=== PATIENT | male | born 2000 | race Caucasian/White ===

== ENCOUNTER 2023-02-12 22:07 | Emergency (ER) | payer MEDICAID, SELFPAY ==
[2023-02-12 16:54] VITALS: BP 216/128; PULSE 64; RESP 14
[2023-02-12 22:13] VITALS: BP 130/80; PULSE 66; RESP 16; TEMP 36.6; O2SAT 99
[2023-02-12 22:45] VITALS: BP 132/61; PULSE 65; PULSE 66; RESP 10; RESP 14
--- NOTE | 2023-02-12 22:47 | PC.NURSE ---
pt brought in by ems.pt is currently male and transitioning to female and goes by estevan. pt states that the last 2-3 days he has felt weak and dizzy. pt has boyfriend in room at this time and states patient had syncopal epsiodes today and loc. pt states right now he feels weak and feel like his legs are being weighed down. also pt states that his bp was high today in the 180s because his boyfriend checked it for him.
--- NOTE | 2023-02-12 22:49 | XR_ITS ---
[address] [address] Patient Name: JORGE LUIS JERNIGAN MRN: [id number] date: 2000 Sex: M Assigned Patient Location: ER Current Patient Location: ER Accession/Order Number: [id number] Exam Date: 02/12/2023 23:04 Report Date: 02/12/2023 23:22 At the request of: REYES ELMORE Procedure: XR chest 1V EXAMINATION: XR chest 1V HISTORY: Syncope COMPARISON: Chest x-rays 11/06/2022 TECHNIQUE: Portable chest FINDINGS: The lung parenchyma is free of consolidation or infiltrate. No pneumothorax or pleural effusion. The cardiac, mediastinal and hilar contours are normal. The visualized osseous structures exhibit no gross abnormality. IMPRESSION: No acute cardiopulmonary abnormality. Electronically authenticated by: NAWAF GREENBERG Date: 02/12/2023 23:22
--- NOTE | 2023-02-12 22:51 | ECG_ITS ---
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
--- NOTE | 2023-02-12 22:54 | ED.SYNCOPE1 ---
HPI - Syncope General Chief Complaint: Syncope Stated Complaint: WEAKNESS Time Seen by Provider: 02/12/23 22:44 Source: other Source comment: ems Mode of arrival: ambulance Limitations: physical limitation Limitations comment: patient states hes weak History of Present Illness HPI narrative: poor historian. Reportedly tonight in his home he felt sluggish and then passed out falling face first onto a carpeted floor. Partner states he was unresponsive for at least 2 minutes. His partner finally ask him if he was ok while he was lying on the floor and he raised his thumb in response. No injury despite falling face first. Denies headache or nausea. No chest pain. States BP was elevated at home. Takes beta socorro for his BP and tachycardia. BP and heart rate normal here. He states he feels better now. No history of dyspnea or palpitations`On further questioning patient states he was not completely unresponsive. complains of dizziness. Describes at home needing to hold on to the wall when walking Related Data Home Medications Medication Instructions Recorded Confirmed aripiprazole 5 mg tablet 5 mg PO DAILY 02/12/23 02/12/23 atenolol 50 mg tablet 50 mg PO Q12H 02/12/23 02/12/23 atomoxetine 100 mg capsule 100 mg PO DAILY 02/12/23 02/12/23 escitalopram oxalate 5 mg tablet 5 mg PO BID 02/12/23 02/12/23 estradiol 2 mg tablet 2 mg PO BID 02/12/23 02/12/23 methylphenidate HCl 20 mg tablet 20 mg PO BID 02/12/23 02/12/23 risperidone 4 mg tablet 4 mg PO DAILY 02/12/23 02/12/23 spironolactone 50 mg tablet mg 02/12/23 Allergies Allergy/AdvReac Type Severity Reaction Status Date / Time No Known Drug Allergies Allergy Verified 02/12/23 22:13 Review of Systems ROS Status of ROS 10 or more systems reviewed and unremarkable except as noted in history and below PFSH PFS Social History Smoking status: Never smoker Exam Constitutional Vital Signs - 24 hr 02/12/23 22:13 02/12/23 16:54 02/12/23 22:45 Temperature 97.8 F Pulse Rate 64 65 Pulse Rate [Monitor] 66 Respiratory Rate 16 14 10 L Blood Pressure 216/128 H 132/61 H Blood Pressure [Right Arm] 130/80 H Pulse Oximetry 99 Oxygen Delivery Method Room Air 02/12/23 22:45 02/13/23 00:11 02/13/23 00:11 Temperature Pulse Rate 66 61 64 Pulse Rate [Monitor] Respiratory Rate 14 17 16 Blood Pressure 132/61 H 129/81 H 129/81 H Blood Pressure [Right Arm] Pulse Oximetry 99 98 Oxygen Delivery Method 02/13/23 00:34 02/13/23 00:35 02/13/23 00:37 Temperature Pulse Rate 67 65 69 Pulse Rate [Monitor] Respiratory Rate 15 9 L 21 Blood Pressure 113/69 116/84 H 140/70 H Blood Pressure [Right Arm] Pulse Oximetry 98 Oxygen Delivery Method 02/13/23 03:01 02/13/23 03:01 02/13/23 04:30 Temperature Pulse Rate 63 101 H 64 Pulse Rate [Monitor] Respiratory Rate 19 17 Blood Pressure 118/69 118/69 Blood Pressure [Right Arm] Pulse Oximetry 99 85 L 98 Oxygen Delivery Method Common normals: no apparent distress, average body habitus, oriented x3, no limitations, healthy appearing, alert and well nourished [facility] Common normals: normocephalic and head/scalp atraumatic Eye Common normals: PERRL, EOMs intact bilaterally and conjunctivae normal Neck & C-Spine Common normals: full ROM Chest Common normals: inspection of chest normal and palpation of chest normal Respiratory Common normals: normal respiratory effort, no retractions, no use of accessory muscles and clear to auscultation bilaterally Cardio Common normals: regular rate, regular rhythm, S1 normal heart sound, S2 normal heart sound and no gallops GI Common normals: Normal to inspection, nondistended, normoactive bowel sounds present, soft to palpation and non-tender Extremity Common normals: normal to inspection, full ROM and no joint enlargement Neuro Common normals: oriented x3, CN's II-XII intact bilaterally, moves all extremities, no focal motor deficits and no sensory deficits noted Psych Mood and affect: flat affect Course Vital Signs Vital signs: Vital Signs Pulse Rate 64 02/12/23 16:54 Respiratory Rate 14 02/12/23 16:54 Blood Pressure 216/128 H 02/12/23 16:54 Temperature 97.8 F 02/12/23 22:13 Pulse Rate 64 02/13/23 04:30 Respiratory Rate 17 02/13/23 03:01 Blood Pressure 118/69 06/28/23 03:01 Pulse Oximetry 98 02/13/23 04:30 Oxygen Delivery Method Room Air 02/12/23 22:13 MDM - Syncope MDM Narrative Medical decision making narrative: patient is a poor historian. History of dizziness on and off for a couple of days. Describes having to hold on the wall to walk because of dizziness. Room off balance. No headache. Reportedly fell face first passing out but no injury. Labs neg. including normal d-dimer and trending troponins. CT brain. neg. Patient treated with ativan and antivert and felt better. No longer dizziness. Able to ambulate without assistance. Discharged home but advised of the need for close follow up. Advised him to see his doctor or return to the ER in one day for recheck Lab Data Labs: Lab Results 02/12/23 02/13/23 Range/Units 22:40 01:08 WBC 6.6 (4.0-11.0) 10^3/uL RBC 4.34 L (4.70-6.10) 10^6/uL Hgb 13.6 L (14.0-18.0) g/dL Hct 38.1 L (42.0-54.0) % MCV 87.8 (80.0-94.0) fL MCH 31.3 (25.9-34.0) pg MCHC 35.7 H (29.9-35.2) g/dL RDW 12.1 (11.0-15.0) % Plt Count 238 (150-450) 10^3/uL MPV 10.1 (9.5-13.5) fL Neut % (Auto) 63.4 (43.0-75.0) % Lymph % (Auto) 25.5 (20.5-60.0) % Barron % (Auto) 7.0 (1.7-12.0) % Eos % (Auto) 3.1 (0.9-7.0) % Baso % (Auto) 0.5 (0.2-2.0) % Neut # (Auto) 4.2 (1.4-6.5) 10^3/uL Lymph # (Auto) 1.7 (1.2-3.8) 10^3/uL Barron # (Auto) 0.5 (0.3-0.8) 10^3/uL Eos # (Auto) 0.2 (0.0-0.7) 10^3/uL Baso # (Auto) 0.0 (0.0-0.1) 10^3/uL Abs Immat Gran (auto) 0.03 (0.00-0.03) 10^3/uL Imm/Tot Granulo (auto) 0.5 (0.0-0.5) % D-Dimer <0.19 (<=0.59) mg/L FEU Sodium 138 (136-145) mmol/L Potassium 3.5 (3.5-5.1) mmol/L Chloride 104 (98-107) mmol/L Carbon Dioxide 26.6 (21.0-32.0) mmol/L Anion Gap 10.9 BUN 8.0 (7.0-18.0) mg/dL Creatinine 0.79 (0.70-1.30) mg/dL Est GFR ( Amer) >60 (>=60) Est GFR (Non-Af Amer) >60 (>=60) BUN/Creatinine Ratio 10.1 Glucose 100 (74-106) mg/dL Calcium 9.0 (8.5-10.1) mg/dL Total Creatine Kinase 42 (39-308) U/L CK-MB (CK-2) <0.50 (<=3.60) ng/mL Troponin I High Sens 13.5 14.0 (4.0-76.1) pg/mL Urine Color Lt. yellow (YELLOW) Urine Clarity Clear (CLEAR) Urine pH 6.0 (5.0-9.0) Ur Specific [place] 1.025 (1.005-1.025) Urine Protein Negative (NEG/TRACE) mg/dL Urine Glucose (UA) Negative (NEGATIVE) mg/dL Urine Ketones Negative (NEGATIVE) mg/dL Urine Occult Blood Negative (NEGATIVE) Urine Nitrite Negative (NEGATIVE) Urine Bilirubin Negative (NEGATIVE) Urine Urobilinogen 0.2 (0.2-1.0) EU/dL Ur Leukocyte Esterase Negative (NEGATIVE) Urine Opiates Screen Negative (NEGATIVE) Ur Buprenorphine Scrn Negative (NEGATIVE) Ur Oxycodone Screen Negative (NEGATIVE) Urine Methadone Screen Negative (NEGATIVE) Ur Propoxyphene Screen Negative (NEGATIVE) Ur Barbiturates Screen Negative (NEGATIVE) U Tricyclic Antidepress Negative (NEGATIVE) Ur Phencyclidine Scrn Negative (NEGATIVE) Ur Amphetamines Screen Negative (NEGATIVE) U Methamphetamines Scrn Negative (NEGATIVE) U Benzodiazepines Scrn Negative (NEGATIVE) Urine Cocaine Screen Negative (NEGATIVE) U Cannabinoids Screen Negative (NEGATIVE) Discharge Plan Discharge Chief Complaint: Syncope Clinical Impression: Dizziness Patient Disposition: Home, Self-Care Prescriptions / Home Meds: No Action spironolactone 50 mg tablet risperidone 4 mg tablet 4 mg PO DAILY methylphenidate HCl 20 mg tablet 20 mg PO BID estradiol 2 mg tablet 2 mg PO BID escitalopram oxalate 5 mg tablet 5 mg PO BID atomoxetine 100 mg capsule 100 mg PO DAILY aripiprazole 5 mg tablet 5 mg PO DAILY atenolol 50 mg tablet 50 mg PO Q12H Instructions: Syncope (ED), Dizziness (ED) Additional Instructions: follow up with your family doctor tomorrow for a recheck or return to the ER for a recheck Stand Alone Forms: Portal Instructions Referrals: Shaikh Pittman MD [Primary Care Provider] - 1 week Discharge Date/Time: 02/13/23 04:50
[2023-02-12 23:09] LABS: Basophils Percent Auto 0.5 % (0.2-2.0); Eosinophils Absolute Auto 0.2 10^3/uL (0.0-0.7); Eosinophils Percent Auto 3.1 % (0.9-7.0); Hematocrit 38.1 % (42.0-54.0); Hemoglobin 13.6 g/dL (14.0-18.0); Immature Granulocytes Abs Auto 0.03 10^3/uL (0.00-0.03); Immature Granulocytes Pct Auto 0.5 % (0.0-0.5); Lymphocytes Absolute Auto 1.7 10^3/uL (1.2-3.8); Lymphocytes Percent Auto 25.5 % (20.5-60.0); Mean Corpuscular HGB Conc 35.7 g/dL (29.9-35.2); Mean Corpuscular Hemoglobin 31.3 pg (25.9-34.0); Mean Corpuscular Volume 87.8 fL (80.0-94.0); Mean Platelet Volume 10.1 fL (9.5-13.5); Monocytes Absolute Auto 0.5 10^3/uL (0.3-0.8); Neutrophils Absolute Auto 4.2 10^3/uL (1.4-6.5); Neutrophils Percent Auto 63.4 % (43.0-75.0); Platelet Count 238 10^3/uL (150-450); Red Blood Count 4.34 10^6/uL (4.70-6.10); Red Cell Distribution Width 12.1 % (11.0-15.0); White Blood Count 6.6 10^3/uL (4.0-11.0)
[2023-02-12 23:17] LABS: Bilirubin Urine NEGATIVE (NEGATIVE); Blood Urine NEGATIVE (NEGATIVE); Clarity Urine CLEAR (CLEAR); Color Urine LT. YELLOW (YELLOW); Glucose Urine UA NEGATIVE (NEGATIVE); Ketones Urine NEGATIVE (NEGATIVE); Leukocyte Esterase Urine NEGATIVE (NEGATIVE); Nitrite Urine NEGATIVE (NEGATIVE); Protein Urine NEGATIVE (NEG/TRACE); Specific Gravity Urine 1.025 (1.005-1.025); Urobilinogen Urine 0.2 EU/dL (0.2-1.0)
[2023-02-12 23:20] LABS: Urine Microscopic Indicated NO
[2023-02-12 23:26] LABS: Amphetamine Screen Urine NEGATIVE (NEGATIVE); Barbiturates Screen Urine NEGATIVE (NEGATIVE); Benzodiazepines Screen Urine NEGATIVE (NEGATIVE); Buprenorphine Screen Urine NEGATIVE (NEGATIVE); Cannabinoid Screen Urine NEGATIVE (NEGATIVE); Cocaine Screen Urine NEGATIVE (NEGATIVE); D Dimer <0.19 mg/L FEU (<=0.59); Methadone Screen Urine NEGATIVE (NEGATIVE); Methamphetamines Screen Urine NEGATIVE (NEGATIVE); Opiate Screen Urine NEGATIVE (NEGATIVE); Oxycodone Screen Urine NEGATIVE (NEGATIVE); Phencyclidine Screen Urine NEGATIVE (NEGATIVE); Tricyclic Antidepressant Urine NEGATIVE (NEGATIVE)
[2023-02-12 23:30] LABS: Anion Gap 10.9; BUN Creatinine Ratio 10.1; Carbon Dioxide 26.6 mmol/L (21.0-32.0); Chloride 104 mmol/L (98-107); Estimated GFR (African America >60 (>=60); Estimated GFR (Non-African Ame >60 (>=60); Glucose 100 mg/dL (74-106); Potassium 3.5 mmol/L (3.5-5.1); Sodium 138 mmol/L (136-145); Troponin I High Sensitivity 13.5 pg/mL (4.0-76.1)
[2023-02-13 00:11] VITALS: BP 129/81; PULSE 61; PULSE 64; RESP 16; RESP 17; O2SAT 98; O2SAT 99
--- NOTE | 2023-02-13 00:14 | PC.NURSE ---
nurse called into room at this time. pt boyfriend states that patient is nodding off again and won't stay awake' nurse in room and patient appears to be sleeping. pt woken up and asked various questions. pt answered all questions appropriately. pt states he feels good just tired. pt states he does still feel a little dizzy but otherwise feels good. vitals retaken and pt denies any other questions at this time.
[2023-02-13 00:34] VITALS: BP 113/69; PULSE 67; RESP 15; O2SAT 98
[2023-02-13 00:35] VITALS: BP 116/84; PULSE 65; RESP 9
[2023-02-13 00:37] VITALS: BP 140/70; PULSE 69; RESP 21
[2023-02-13] MEDS: METHYLPREDNISOLONE SOD SUCC PF 125 MG/2 ML VIAL IVP (01:14)
[2023-02-13] MEDS: MECLIZINE HCL 12.5 MG TABLET 25 MG PO (01:14)
[2023-02-13 01:35] LABS: Creatine Kinase 42 U/L (39-308); Creatine Kinase MB <0.50 ng/mL (<=3.60)
--- NOTE | 2023-02-13 02:26 | CT_ITS ---
The [address] [address] Patient Name: JORGE LUIS JERNIGAN MRN: [id number] date: 2000 Sex: M Assigned Patient Location: ER Current Patient Location: ER Accession/Order Number: [id number] Exam Date: 02/13/2023 02:50 Report Date: 02/13/2023 04:04 At the request of: REYES ELMORE Procedure: CT head/brain wo con EXAM: CT head/brain wo con CLINICAL INDICATION: dizziness COMPARISON: None TECHNIQUE: Axial CT images of the brain were obtained without contrast. Dose reduction techniques were achieved by using automated exposure control and/or adjustment of mA and/or kV according to patient size and/or use of iterative reconstruction technique. FINDINGS: Brain parenchyma: No mass effect or midline shift is seen. Arreguin-white differentiation is maintained. No findings suspicious for intracranial hemorrhage. No findings suggesting acute stroke. Ventricles and extra-axial spaces: Ventricles are concordant with sulci. No findings suggesting hydrocephalus. Visualized paranasal sinuses: Mild mucosal thickening noted along the anterior ethmoidal air cells.. Mastoid air cells: Clear. Included portions of the orbits:Included portions of the orbits with no evidence of fracture or other acute pathology. Bones: No fracture is seen. Impression: 1. No acute intracranial process visualized. 2. Mild mucosal thickening along the anterior ethmoidal air cells. Electronically authenticated by: JANE BAH Date: 02/13/2023 04:04
[2023-02-13 03:01] VITALS: BP 118/69; PULSE 101; PULSE 63; RESP 17; RESP 19; O2SAT 85; O2SAT 99
[2023-02-13] MEDS: LORAZEPAM 2 MG/ML 1 ML VIAL 0.5 MG IV (03:01)
[2023-02-13 04:30] VITALS: PULSE 64; O2SAT 98
== END 2023-02-13 04:50 | disposition home or self-care (01) ==
PROVIDERS: Emergency Provider Internal Medicine; PCP Internal Medicine
DX: R42 Dizziness and giddiness (principal); Z79.899 Other long term (current) drug therapy
CPT/HCPCS: 36415; 70450; 71045; 80048; 80307; 81003; 82550; 82553; 84484; 85025; 85378; 93005; 96374; 96375; 99285; J2930

== ENCOUNTER 2023-04-19 14:54 | Outpatient (OUT) | payer MEDICAID, SELFPAY ==
[2023-04-19 15:26] LABS: Basophils Percent Auto 0.4 % (0.2-2.0); Eosinophils Absolute Auto 0.1 10^3/uL (0.0-0.7); Eosinophils Percent Auto 1.3 % (0.9-7.0); Hematocrit 33.7 % (42.0-54.0); Hemoglobin 11.4 g/dL (14.0-18.0); Immature Granulocytes Abs Auto 0.01 10^3/uL (0.00-0.03); Immature Granulocytes Pct Auto 0.2 % (0.0-0.5); Lymphocytes Absolute Auto 1.7 10^3/uL (1.2-3.8); Lymphocytes Percent Auto 36.8 % (20.5-60.0); Mean Corpuscular HGB Conc 33.8 g/dL (29.9-35.2); Mean Corpuscular Hemoglobin 32.2 pg (25.9-34.0); Mean Corpuscular Volume 95.2 fL (80.0-94.0); Mean Platelet Volume 9.3 fL (9.5-13.5); Monocytes Absolute Auto 0.4 10^3/uL (0.3-0.8); Monocytes Percent Auto 7.4 % (1.7-12.0); Neutrophils Absolute Auto 2.6 10^3/uL (1.4-6.5); Neutrophils Percent Auto 53.9 % (43.0-75.0); Platelet Count 207 10^3/uL (150-450); Red Blood Count 3.54 10^6/uL (4.70-6.10); Red Cell Distribution Width 14.6 % (11.0-15.0); White Blood Count 4.7 10^3/uL (4.0-11.0)
[2023-04-19 15:32] LABS: Alanine Aminotransferase 16 U/L (16-63); Albumin Globulin Ratio 1.1; Albumin Level 3.8 g/dL (3.4-5.0); Alkaline Phosphatase 97 U/L (46-116); Anion Gap 9.3; Aspartate Amino Transferase 11 U/L (15-37); BUN Creatinine Ratio 15.6; Bilirubin Total 0.4 mg/dL (0.2-1.0); Calcium 8.3 mg/dL (8.5-10.1); Carbon Dioxide 25.2 mmol/L (21.0-32.0); Chloride 109 mmol/L (98-107); Estimated GFR (African America >60 (>=60); Estimated GFR (Non-African Ame >60 (>=60); Globulin 3.4 g/dL; Glucose 121 mg/dL (74-106); Potassium 3.5 mmol/L (3.5-5.1); Sodium 140 mmol/L (136-145); Total Protein 7.2 g/dL (6.4-8.2)
== END 2023-04-19 14:55 | disposition home or self-care (01) ==
PROVIDERS: PCP Internal Medicine; Visit Provider Internal Medicine
DX: I10 Essential (primary) hypertension (principal)
CPT/HCPCS: 36415; 80053; 85025

== ENCOUNTER 2023-05-06 12:03 | Outpatient (OUT) | payer MEDICAID, SELFPAY ==
[2023-05-06 13:14] LABS: Percent Iron Saturation 27.7 %
[2023-05-07 04:07] LABS: Transferrin 235 mg/dL (177-329)
== END 2023-05-06 12:04 | disposition home or self-care (01) ==
PROVIDERS: PCP Internal Medicine; Visit Provider Internal Medicine
DX: D64.9 Anemia, unspecified (principal)
CPT/HCPCS: 36415; 82607; 82728; 82746; 83540; 83550; 84466

== ENCOUNTER 2024-09-14 14:00 | Emergency (ER) | payer OTHER, SELFPAY ==
[2024-09-14 14:09] VITALS: BP 121/64; PULSE 112; TEMP 38.4; O2SAT 96; BMI 27.5
[2024-09-14 14:36] VITALS: BP 131/78; PULSE 101; TEMP 39.7; O2SAT 97; BMI 28.0
[2024-09-14 14:42] LABS: Influenza Virus A Antigen Positive; Influenza Virus B Antigen Negative
[2024-09-14 14:43] LABS: Internal Control Within Normal Limits; SARS-CoV-2 Ag NEGATIVE (NEGATIVE)
--- NOTE | 2024-09-14 14:45 | XR_ITS ---
The [address] [address] Patient Name: JORGE LUIS JERNIGAN MRN: [id number] date: 2000 Sex: M Assigned Patient Location: ED.MAIN Current Patient Location: ER Accession/Order Number: [id number] Exam Date: 09/14/2024 14:40 Report Date: 09/14/2024 15:06 At the request of: TANNER CHENEY Procedure: XR chest 1V EXAMINATION: XR chest 1V HISTORY: cough COMPARISON: XR chest 02/12/2023 FINDINGS: LUNGS: No significant pulmonary parenchymal abnormalities. VASCULATURE: No increased pulmonary vasculature. PLEURA: No pneumothorax, effusion, or pleural thickening. CARDIAC: No cardiomegaly or cardiac silhouette abnormality. MEDIASTINUM: No visible mass or adenopathy. BONES: No fracture or visible bone lesion. OTHER: Negative. XR/XR chest 1V IMPRESSION: 1. No acute cardiopulmonary process. Stable chest. Electronically authenticated by: EVERETT BUCKLEY Date: 09/14/2024 15:06
[2024-09-14] MEDS: ACETAMINOPHEN 500 MG TABLET 1000 MG PO (14:50)
--- NOTE | 2024-09-14 14:53 | ED_ITS ---
HPI HPI - General Adult General Chief complaint: Shortness of Breath/Dyspnea Stated complaint: SOB HEADACHE WEAKNESS Time Seen by Provider: 09/14/24 14:18 Source: patient Mode of arrival: walk-in Limitations: no limitations History of Present Illness HPI narrative: Patient is a 24-year-old male transitioning to female who presents to the emergency department for a 2-day history of bodyaches, cough, congestion, generalized weakness, nausea and vomiting. No medications taken prior to arrival. Patient was unaware of a fever prior to arrival. No sick contacts in the home. Mild sputum production. Related Data Home Medications ?Medication ?Instructions ?Recorded ?Confirmed aripiprazole 5 mg tablet 5 mg PO DAILY 02/12/23 09/14/24 atenolol 50 mg tablet 50 mg PO Q12H 02/12/23 09/14/24 atomoxetine 100 mg capsule 100 mg PO DAILY 02/12/23 09/14/24 escitalopram oxalate 5 mg tablet 5 mg PO BID 02/12/23 09/14/24 estradiol 2 mg tablet 2 mg PO BID 02/12/23 09/14/24 methylphenidate HCl 20 mg tablet 20 mg PO BID 02/12/23 09/14/24 risperidone 4 mg tablet 4 mg PO DAILY 02/12/23 09/14/24 spironolactone 50 mg tablet 50 mg PO DAILY 02/12/23 09/14/24 Previous Rx's ?Medication ?Instructions ?Recorded auckamqchdweqrb-sqhgbwakrvsiwbk-WL 10 ml PO Q6H PRN cold symptoms 09/14/24 2 mg-30 mg-10 mg/5 mL oral syrup #200 mL (Bromfed DM) ondansetron 4 mg disintegrating 4 mg PO Q6H PRN nausea and 09/14/24 tablet vomiting #12 tabs Allergies Allergy/AdvReac Type Severity Reaction Status Date / Time No Known Drug Allergies Allergy Verified 09/14/24 14:36 Opioid HPI Opioid Management Most Recent Opioid Data: Ur Phencyclidine Scrn Negative (NEGATIVE) 02/12/23 22:40 01/18 03/10 Review of Systems ROS Constitutional Reports: fever and chills Ears, nose, mouth, and throat Reports: nasal congestion; Denies: throat pain Cardiovascular Denies: chest pain Respiratory Reports: cough; Denies: shortness of breath Gastrointestinal Reports: nausea and vomiting; Denies: diarrhea Integumentary/Breast Denies: rash Neurological Reports: headache; Denies: numbness in extremities or weakness in extremities Hematologic/Lymphatic Denies: easy bruising or easy bleeding PFSH PFSH Social History Smoking status: Never smoker Little interest or pleasure in doing things: not at all Feeling down, depressed, or hopeless: not at all Exam Narrative Exam Narrative: Gen.: Awake, alert, in no distress Head: Normocephalic, atraumatic ENT: Moist mucous membranes Respiratory: No respiratory distress, lungs clear bilaterally Cardio: Regular rate and rhythm Gastrointestinal: Abdomen is soft, nondistended and nontender to palpation Extremities: Moves extremities equally Psych: Normal mood and affect Neuro: No focal neuro deficit Skin: Warm, dry, intact Constitutional Vital Signs, click to edit/add: Last Vital Signs Temp 103.4 F H 09/14/24 14:36 Pulse 101 H 09/14/24 14:36 Resp 18 09/14/24 14:36 BP 131/78 09/14/24 14:36 Pulse Ox 97 09/14/24 14:36 O2 Del Method Room Air 09/14/24 14:09 Course Vital Signs Vital signs: Vital Signs Temperature 101.2 F H 09/14/24 14:09 Pulse Rate 112 H 09/14/24 14:09 Respiratory Rate 18 09/14/24 14:09 Blood Pressure 121/64 09/14/24 14:09 Pulse Oximetry 96 09/14/24 14:09 Oxygen Delivery Method Room Air 09/14/24 14:09 Temperature 103.4 F H 09/14/24 14:36 Pulse Rate 101 H 09/14/24 14:36 Respiratory Rate 18 09/14/24 14:36 Blood Pressure 131/78 09/14/24 14:36 Pulse Oximetry 97 09/14/24 14:36 Oxygen Delivery Method Room Air 09/14/24 14:09 Medical Decision Making MDM Narrative Medical decision making narrative: Positive for influenza A, treated with Tylenol for fever in the ER. Chest x-ray is unremarkable. Work note provided. Discharged home with Bromfed-DM and Zofran. Follow-up with PCP and return to the ER if symptoms change or worsen. SUPERVISED APC VISIT, PHYSICIAN ATTESTATION: Based on the medical record the care appears appropriate. ? Medical Records Medical records reviewed: Yes I reviewed the patient's medical records Lab Data Lab results reviewed: Yes I reviewed the patient's lab results Labs: Lab Results 09/14/24 Range/Units 14:13 Influenza Type A Ag Positive A Influenza Type B Ag Negative SARS-CoV-2 Ag (CV2AG) Negative (NEGATIVE) Imaging Data Chest x-ray: Attestation: I have reviewed the pertinent imaging results. Discharge Plan Discharge Chief Complaint: Shortness of Breath/Dyspnea Clinical Impression: Influenza A, Fever Patient Disposition: Home, Self-Care Time of Disposition Decision: 14:51 Condition: Good Prescriptions / Home Meds: New vgeeetirwanezws-oxjhqrinc-ED [Bromfed DM] 2-30-10 mg/5 mL syrup 10 ml PO Q6H PRN (Reason: cold symptoms) Qty: 200 0RF ondansetron 4 mg tablet,disintegrating 4 mg PO Q6H PRN (Reason: nausea and vomiting) Qty: 12 0RF No Action spironolactone 50 mg tablet 50 mg PO DAILY risperidone 4 mg tablet 4 mg PO DAILY methylphenidate HCl 20 mg tablet 20 mg PO BID estradiol 2 mg tablet 2 mg PO BID escitalopram oxalate 5 mg tablet 5 mg PO BID atomoxetine 100 mg capsule 100 mg PO DAILY aripiprazole 5 mg tablet 5 mg PO DAILY atenolol 50 mg tablet 50 mg PO Q12H Print Language: Tajik Instructions: Fever in Adults (ED), Influenza (ED) Referrals: Shaikh Pittman MD [Primary Care Provider] - 1 week
== END 2024-09-14 15:14 | disposition home or self-care (01) ==
PROVIDERS: Emergency Provider Emergency Medicine; PCP Internal Medicine
DX: J10.1 Influenza due to other identified influenza virus with other respiratory manifestations (principal); R50.9 Fever, unspecified
CPT/HCPCS: 71045; 87804; 87811; 99285

== ENCOUNTER 2025-01-01 10:47 | Emergency (ER) | payer OTHER, SELFPAY ==
[2025-01-01 10:51] VITALS: BP 144/87; PULSE 74; TEMP 36.7; O2SAT 98; BMI 29.5
--- NOTE | 2025-01-01 11:16 | ECG_ITS ---
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 Measurements Intervals [place] Rate: 67 P: 34 VA: 202 QRS: 59 QRSD: 108 T: 63 QT: 398 QTc: 413 Interpretive Statements 1100 Sinus rhythm 2440 Incomplete right bundle branch block [address] elevation 9130 borderline ECG Compared to ECG 02/12/2023 22:23:54 No significant changes Electronically Signed On 01-02-2025 7:41:25 EDT by NIURKA ABRAHAM M.D.
--- OUTSIDE RECORDS SUMMARY | 2025-01-01 11:16 | XMS_ITS | CCD ---
Author Organization [facility] Care Team Providers Care [employer] Name Role Phone NO FAMILY, PHYSICIAN Primary Care Provider MD Blanca Bardales Admit Provider [phone] MD Blanca Brambila Attending Provider MARKERKEVIN Admitting Unavailable MARKER, KEVIN Attending Unavailable SHRAVAN ., BASSEM HART Consulting Unavailabl e TAN, FAJARDO H Primary Care Unavailable JUAN, KEVIN Consulting Unavailable SHAE BOYLE Consulting Unavailable NAWAF GREENBERG Consulting Unavailable BONNIE, DR LULÚ Rose Admitting Unavailabl e BONNIE, DR LULÚ Rose Attending Unavailabl e TAN, FAJARDO H Primary Care Unavailable BONNIE, DR LULÚ Rose Consulting UnavailJULIO Choudhury Admitting Unavailable TAN, FAJARDO H Primary Care Unavailable JULIO WERNER Attending Unavailable PAY ., DR GILBERT Admitting Unavailable PAY ., DR GILBERT Attending Unavailable TAN, FAJARDO H Primary Care Unavailable PAY ., DR GILBERT Consulting Unavailable MARKUS DIEGO Consulting Unavailable Patty, Evens Admitting Unavailab le Evens Brambila Attending Unavailab le NO FAMILY, PHYSICIAN Primary Care Unavailable Patty, Evens Admitting Unavailab le PattyEvan paintingan Attending Unavailab le NO FAMILY, PHYSICIAN Primary Care Unavailable SHAIKH MADDOX Attending Unavailable BHARTI BARNETT Attending Tevin Hutson MD Primary Care Provider [phone] Ericka CLOUD PHYSICISTBharti Unavailable [phone] Medications Current Medications Medication Drug Class(es) Dates Sig (Normalized) Sig (Original) amoxicillin 875 mg / clavulanate 125 mg oral tablet (2 sources) Penicillin-class Antibacterial Start: 05-05-2024 End: 05-15-2024 take 1 tablet by mouth in the morning amoxicillin-clavula tessa (Augmentin) 875-125 MG tablet Indications: Non-recurrent acute suppurative otitis media of both ears without spontaneous rupture of tympanic membranes Take 1 tablet (875 mg) by mouth in the morning and 1 tablet (875 mg) before bedtime. Do all this for 10 days. 20 tablet 05/05/2024 05/15/2024 Active carbamide peroxide 65 mg/ml otic solution (2 sources) Start: 05-05-2024 End: 05-05-2024 carbamide peroxide (Debrox) 6.5 % otic solution Indications: Bilateral impacted cerumen Administer 3-5 drops into affected ear(s) in the morning and 3-5 drops before bedtime. Do all this for 4 days. 15 mL 05/05/2024 05/05/2024 Discontinued escitalopram 5 mg oral tablet (1 source) Serotonin Reuptake Inhibitor Start: 11-17-2022 take 5 mg by mouth once daily in the morning Escitalopram Oxalate Active 5 MG PO Every morning 15 15 November 17, 2022 12:00am estradiol 2 mg oral tablet (4 sources) Estrogen Start: 11-13-2022 take 1 tablet by mouth twice daily Estradiol (Estrace) 2 mg tablet Active 2 MG PO Twice daily November 13, 2022 12:00am progesterone 100 mg oral capsule (3 sources) Progesterone Start: 01-17-2024 take 1 capsule by mouth in the evening progesterone 100 MG capsule Take 100 mg by mouth in the evening 01/17/2024 Active spironolactone 50 mg oral tablet (4 sources) Aldosterone Antagonist Start: 11-13-2022 take 1 tablet by mouth twice daily Spironolactone (Aldactone) 50 mg tablet Active 50 MG PO Twice daily November 13, 2022 12:00am tiZANidine 4 mg oral tablet (2 sources) Central alpha-2 Adrenergic Agonist Start: 05-05-2024 End: 05-12-2024 take 1 tablet by mouth at bedtime tiZANidine (Zanaflex) 4 MG tablet Indications: Tension headache , Muscle pain, cervical Take 1 tablet (4 mg) by mouth at bedtime for 7 days 7 tablet 05/05/2024 05/12/2024 Active Problems Active Problems Problem Classification Problem Date Documented Date Episodic/Chronic Anxiety disorders (5 sources) Generalized anxiety disorder; 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: [Other specified anxiety disorders] Onset: 10-05-2022 Chronic Anxiety disorders (1 source) Irritability and anger; 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: [IRRITABILITY AND ANGER] Onset: 10-08-2022 Episodic Attention-deficit, conduct, and disruptive behavior disorders (3 sources) Attention deficit hyperactivity disorder, predominantly inattentive type; 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: [Attention-deficit hyperactivity disorder, predominantly inattentive type] Onset: 02-04-2024 02-04-2024 Chronic Conduction disorders (1 source) Unspecified right bundle-branch block; 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: [UNSPECIFIED RT BUNDLE-BRANCH BLOCK] Onset: 11-08-2022 Chronic Headache; including migraine (4 sources) Tension-type headache; 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: [Tension-type headache, unspecified, not intractable] Onset: 05-05-2024 05-05-2024 Chronic Miscellaneous mental health disorders (3 sources) 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; 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: [Transsexualism] Onset: 02-04-2024 02-04-2024 Chronic Mood disorders (5 sources) Depressive disorder; 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: [Depression] Onset: 02-04-2024 11-14-2022 Chronic Mood disorders (5 sources) Mood disorders; 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: [DEPRESSION UNSPECIFIED] Onset: 11-13-2022 Other aftercare (1 source) Other pharmacy data analyst (current) drug therapy; 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: [OTH INTERVENTIONAL PHYSIATRIST CURRENT DRUG THERAPY] Onset: 11-14-2022 Episodic Other ear and sense organ disorders (4 sources) Impacted cerumen of bilateral ears; 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: [Impacted cerumen, bilateral] Onset: 05-05-2024 05-05-2024 Episodic Other lower respiratory disease (3 sources) Shortness of breath; 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: [SHORTNESS OF BREATH] Onset: 11-06-2022 Episodic Other lower respiratory disease (1 source) Other forms of dyspnea; 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: [OTHER FORMS OF DYSPNEA] Onset: 11-08-2022 Episodic Other screening for suspected conditions (not mental disorders or infectious disease) (1 source) Other specified abnormal findings of blood chemistry; 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: [OTH SPEC ABNORMAL FINDINGS BLD CHEM] Onset: 11-08-2022 Episodic Otitis media and related conditions (4 sources) Acute suppurative otitis media without spontaneous rupture of ear drum; 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: [Acute suppurative otitis media without spontaneous rupture of ear drum, bilateral] Onset: 05-05-2024 05-05-2024 Episodic Spondylosis; intervertebral disc disorders; other back problems (4 sources) Neck pain; 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: [Cervicalgia] Onset: 05-05-2024 05-05-2024 Episodic Substance-related disorders (1 source) Cannabis use, unspecified, uncomplicated; 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: [CANNABIS USE UNS UNCOMPLICATED] Onset: 11-08-2022 Episodic Suicide and intentional self-inflicted injury (2 sources) Suicidal thoughts; 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: [Suicidal ideations] 11-14-2022 Episodic Past or Other Problems Problem Classification Problem Date Documented Da te Episodic/Chronic Other upper respiratory infections (3 sources) Acute upper respiratory infection; 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: [Acute upper respiratory infection, unspecified] Onset: 02-04-2024 02-04-2024 Episodic Results Test Name Value Interpretation Reference Range Facility Cholesterol [Mass/volume] in Serum or PlasmaOrdered By: Evens Brambila on 11-14-2022 Cholesterol [Mass/Vol] 139 mg/dL 140-200 [facility] Comment on above: Chol less than 200 m g/dl low riskChol 201-239 mg/dl borderline riskChol 240 mg/dl and greater high risk Cholesterol in LDL Calc [Mas s/Vol]Ordered By: Evens Brambila on 11-14-2022 Cholesterol in LDL [Mass/Vol] 79 mg/dL 0-100 [facility] Comment on above: LDL ATP III CLASSIFI CATIONLDL less than 100 mg/dL OptimalLDL 100-129 mg/dL Near or above optimalLDL 130-159 mg/dL Borderline highLDL 160-189 mg/dL HighLDL greater than 189 mg/dL Very high Cholesterol in VLDL Calc [Ma ss/Vol]Ordered By: Evens Brambila on 11-14-2022 Cholesterol in VLDL [Mass/Vol] 19 mg/dL [facility] Lipid Panelon 11-14-2022 Cholesterol [Mass/Vol] 139 mg/dL Low 140-200 [facility] Comment on above: Result Comment: Chol less than 200 mg/dl low risk Chol 201-239 mg/dl borderline risk Chol 240 mg/dl and greater high risk Performed By: #### V [id number], LIPID, TSH3 wRFLX #### [facility] [address] Cholesterol in HDL [Mass/Vol] 40 mg/dL Normal 29-71 [facility] Comment on above: Result Comment: HDL CHOL ATP-III CLASSIFICATION Cardiovascular Risk HDL > or equal to 60 mg/dL LOW HDL < 40 mg/dL HIGH Performed By: #### V [id number], LIPID, TSH3 wRFLX #### [facility] [address] Cholesterol.total/Chol esterol in HDL [Mass ratio] 3.5 {ratio} Normal <5.0 [facility] Comment on above: Performed By: #### V [id number], LIPID, TSH3 wRFLX #### [address] LDL Cholesterol,Calculated 79 mg/dL Normal 0-100 [facility] Comment on above: Result Comment: LDL ATP III CLASSIFICATION LDL less than 100 mg/dL Optimal LDL 100-129 mg/dL Near or above optimal LDL 130-159 mg/dL Borderline high LDL 160-189 mg/dL High LDL greater than 189 mg/dL Very high Performed By: #### V [id number], LIPID, TSH3 wRFLX #### [address] Triglyceride w/Reflex 98 mg/dL Normal 0-149 [facility] Comment on above: Result Comment: TRIG ATP III CLASSIFICATION TRIG less than 150 mg/dL Normal TRIG 150-199 mg/dL Borderline high TRIG 200-500 mg/dL High TRIG greater than 500 mg/dL Very high Standard traceable to the Center for Disease Conrtrol and Prevention (CDC) test method. Performed By: #### V [id number], LIPID, TSH3 wRFLX #### [facility] [address] VLDL CHOLESTEROL 19 mg/dL Normal [facility] Comment on above: Performed By: #### V [id number], LIPID, TSH3 wRFLX #### [facility] [address] Serum or plasma high density lipoprotein (HDL) cholesterol measurementOrdered By: Evens Brambila on 11-14-2022 Cholesterol in HDL [Mass/Vol] 40 mg/dL [facility] Comment on above: HDL CHOL ATP-III CLA SSIFICATION Cardiovascular RiskHDL > or equal to 60 mg/dL LOWHDL < 40 mg/dL HIGH Serum or plasma total choles terol/high density lipoprotein (HDL) cholesterol mass ratOrdered By: Evens Brambila on 11-14-2022 Cholesterol.total/Chol esterol in HDL [Mass ratio] 3.5 {ratio} <5.0 [facility] Thyroid Stim Hormone w/Rflxo n 11-14-2022 Thyroid Stim Hormone w/Rflx 0.88 u[iU]/mL Normal 0.45-5.33 [facility] Comment on above: Performed By: #### V [id number], LIPID, TSH3 wRFLX #### [facility] [address] [id number] [facility] Thyrotropin [Units/volume] i n Serum or PlasmaOrdered By: Evens Brambila on 11-14-2022 TSH Qn 0.88 m[IU]/L 0.45-5.33 [facility] Triglyceride [Mass/volume] i n Serum or PlasmaOrdered By: Evens Brambila on 11-14-2022 Triglyceride [Mass/Vol] 98 mg/dL 0-149 [facility] Comment on above: TRIG ATP III CLASSIF ICATIONTRIG less than 150 mg/dL NormalTRIG 150-199 mg/dL Borderline highTRIG 200-500 mg/dL High TRIG greater than 500 mg/dL Very highStandard traceable to the Center for Disease Conrtrol and Prevention (CDC) test method. Vitamin D 25 Hydroxy Totalon 11-14-2022 Vitamin D 25 Hydroxy Total 14.0 ng/mL Low 30-100 [facility] Comment on above: Result Comment: NIKOLAS MIN D STATUS 25(OH)VITAMIN D RANGE (ng/mL) Deficient <20 Insufficient 20 to <30 Sufficient 30 to 100 Reference: Leo Harris, Don MOYA, et al. Evaluation,treatment, and prevention of vitamin D deficiency; an Endocrine Society clinical practice guideline. JCEM. 2010; 96(7):191-. PERFORMED BY: [facility] [address] [place] [address] PATHOLOGIST FX ARTIST JOVANY LEA M.D. Performed By: #### V [id number], LIPID, TSH3 wRFLX #### [facility] [address] Vitamin D+Metabolites [Mass/ volume] in Serum or PlasmaOrdered By: Evens Brambila on 11-14-2022 Vitamin D+Metabolites [Mass/Vol] 14.0 ng/mL 30-100 [facility] Comment on above: VITAMIN D STATUS 25( [place])VITAMIN D RANGE (ng/mL) Deficient <20 Insufficient 20 to <30Sufficient 30 to 100Reference: Leo Harris, Don MOYA, et al. Evaluation,treatment, and prevention of vitamin D deficiency; an Endocrine Society clinical practice guideline. JCEM. 2010; 96(7):1911-30. ACETAMINOPHENon 11-13-2022 Acetaminophen [Mass/Vol] ug/mL Critically low 10.0-30.0 [facility] Comment on above: Performed By: #### A CET #### [facility] [address] [address] [address] Zana Davenport Acetaminophen [Mass/Vol] ug/mL Critically low 10.0-30.0 [facility] Comment on above: Result Comment: Prev iously reported as: 30.6 On 11/13/2022 10:40 By [email or web address] Performed By: #### C MPLANI, ACET #### [facility] [address] [address] [address] Zana Davenport CBC AUTO DIFFon 11-13-2022 BASO # 0.0 103/ul Normal 0.0-0.1 [facility] Comment on above: Performed By: #### E TH, ACET, SALYC, CMP #### [facility] [address] [place] [address] Dr. Zana Davenport Basophils/100 WBC (Bld) 0.3 % Normal 0.2-2.0 [facility] Comment on above: Performed By: #### E TH, ACET, SALYC, CMP #### [facility] [address] [place] [address] Dr. Zana Davenport EO # 0.1 103/ul Normal 0.0-0.7 [facility] Comment on above: Performed By: #### E TH, ACET, SALYC, CMP #### [facility] [address] [place] [address] Dr. Zana Davenport Eosinophils/100 WBC (Bld) 0.7 % Critically low 0.9-7.0 [facility] Comment on above: Performed By: #### E TH, ACET, SALYC, CMP #### [facility] [address] [place] [address] Dr. Zana Davenport Erythrocyte distribution width (RBC) [Ratio] 12.8 % Normal 11.0-15.0 [facility] Comment on above: Performed By: #### E TH, ACET, SALYC, CMP #### [facility] [address] [place] [address] Dr. Zana Davenport Hematocrit (Bld) [Volume fraction] 44.8 % Normal 42.0-54.0 [facility] Comment on above: Performed By: #### E TH, ACET, SALYC, CMP #### [facility] [address] [place] [address] Dr. Zana Davenport Hemoglobin (Bld) [Mass/Vol] 15.9 g/dL Normal 14.0-18.0 [facility] Comment on above: Performed By: #### E TH, ACET, SALYC, CMP #### [facility] [address] [place] [address] Dr. Zana Davenport IG # 0.05 10e3/ul Critically high 0.00-0.03 [facility] Comment on above: Performed By: #### E TH, ACET, SALYC, CMP #### [facility] [address] [place] [address] Dr. Zana Davenport IG % 0.4 % Normal 0.0-0.5 [facility] Comment on above: Performed By: #### E TH, ACET, SALYC, CMP #### [facility] [address] [place] [address] Dr. Zana Davenport LYMPH # 1.4 103/ul Normal 1.2-3.8 [facility] Comment on above: Performed By: #### E TH, ACET, SALYC, CMP #### [facility] [address] [place] [address] Dr. Zana Davenport Lymphocytes/100 WBC (Bld) 11.6 % Critically low 20.5-60.0 [facility] Comment on above: Performed By: #### E TH, ACET, SALYC, CMP #### [facility] [address] [place] [address] Dr. Zana Davenport MANUAL DIFF REQ NO Normal [facility] Comment on above: Performed By: #### E TH, ACET, SALYC, CMP #### [facility] [address] [place] [address] Dr. Zana Davenport MCH (RBC) [Entitic mass] 30.4 pg Normal 25.9-34.0 [facility] Comment on above: Performed By: #### E TH, ACET, SALYC, CMP #### [facility] [address] [place] [address] Dr. Zana Davenport MCHC (RBC) [Mass/Vol] 35.5 g/dL Critically high 29.9-35.2 [facility] Comment on above: Performed By: #### E TH, ACET, SALYC, CMP #### [facility] [address] [place] [address] Dr. Zana Davenport MCV (RBC) [Entitic vol] 85.7 fL Normal 80.0-94.0 [facility] Comment on above: Performed By: #### E TH, ACET, SALYC, CMP #### [facility] [address] [place] [address] Dr. Zana Davenport MONO # 0.6 103/ul Normal 0.3-0.8 [facility] Comment on above: Performed By: #### E TH, ACET, SALYC, CMP #### [facility] [address] [place] [address] Dr. Zana Davenport Monocytes/100 WBC (Bld) 5.3 % Normal 1.7-12.0 [facility] Comment on above: Performed By: #### E TH, ACET, SALYC, CMP #### [facility] [address] [place] [address] Dr. Zana Davenport NEUT # 9.6 103/ul Critically high 1.4-6.5 [facility] Comment on above: Performed By: #### E TH, ACET, SALYC, CMP #### [facility] [address] [place] [address] Dr. Zana Davenport Neutrophils/100 WBC (Bld) 81.7 % Critically high 43.0-75.0 [facility] Comment on above: Performed By: #### E TH, ACET, SALYC, CMP #### [facility] [address] [place] [address] Dr. Zana Davenport Platelet mean volume (Bld) [Entitic vol] 9.6 fL Normal 9.5-13.5 [facility] Comment on above: Performed By: #### E TH, ACET, SALYC, CMP #### [facility] [address] [place] [address] Dr. Zana Davenport PLT 302 103/ul Normal 150-450 [facility] Comment on above: Performed By: #### E TH, ACET, SALYC, CMP #### [facility] [address] [place] [address] Dr. Zana Davenport RBC 5.23 106/ul Normal 4.70-6.10 [facility] Comment on above: Performed By: #### E TH, ACET, SALYC, CMP #### [facility] [address] [place] [address] Dr. Zana Davenport WBC 11.7 103/ul Critically high 4.0-11.0 [facility] Comment on above: Performed By: #### E TH, ACET, SALYC, CMP #### [facility] [address] [address] [address] Zana Davenport DRUG SCREEN RAPID (URINE)on 11-13-2022 AMP Negative Normal NEGATIVE [facility] Comment on above: Performed By: #### E TH, ACET, SALYC, CMP #### [facility] [address] [place] [address] Dr. Zana Davenport BAR Negative Normal NEGATIVE [facility] Comment on above: Performed By: #### E TH, ACET, SALYC, CMP #### [facility] [address] [address] [address] Zana Davenport BUP Negative Normal NEGATIVE [facility] Comment on above: Performed By: #### E TH, ACET, SALYC, CMP #### [facility] [address] [place] [address] Dr. Zana Davenport BZO Negative Normal NEGATIVE [facility] Comment on above: Performed By: #### E TH, ACET, SALYC, CMP #### [facility] [address] [place] [address] Dr. Zana Davenport MADELEINE Negative Normal NEGATIVE [facility] Comment on above: Performed By: #### E TH, ACET, SALYC, CMP #### [facility] [address] [place] [address] Dr. Zana Davenport CUT-OFFS SEE BELOW Normal [facility] Comment on above: Result Comment: AMP (Amphetamine): 500ng/mL, BAR (Barbituates): 200 ng/mL, BZO (Benzodiazepines): 150 ng/mL, BUP (Buprenorphine): 10 ng/mL, MADELEINE (Cocaine): 150 ng/mL, mAMP (Methamphetamine): 500 ng/mL, MTD (Methadone): 200 ng/mL, OPI (Opiates): 100 ng/mL, OXY (Oxycodone): 100 ng/mL, PCP (Phencyclidine): 25 ng/mL, PPX (Propoxyphene): 300 ng/mL, THC (Cannabinoids): 50 ng/mL, TCA (Trycyclic Antidepressants): 300 ng/mL Performed By: #### E TH, ACET, SALYC, CMP #### [facility] [address] [place] [address] Dr. Zana Davenport DRUG CUT HEADER DRUG CLASS TEST SYST EM CUT-OFF CONCENTRATIONS ARE FOLLOWS: Normal [facility] Comment on above: Performed By: #### E TH, ACET, SALYC, CMP #### [facility] [address] [address] [address] Zana Davenport mAMP Negative Normal NEGATIVE [facility] Comment on above: Performed By: #### E TH, ACET, SALYC, CMP #### [facility] [address] [place] [address] Dr. Zana Davenport MTD Negative Normal NEGATIVE [facility] Comment on above: Performed By: #### E TH, ACET, SALYC, CMP #### [facility] [address] [place] [address] Dr. Zana Davenport OPI Negative Normal NEGATIVE [facility] Comment on above: Performed By: #### E TH, ACET, SALYC, CMP #### [facility] [address] [place] [address] Dr. Zana Davenport OXY Negative Normal NEGATIVE [facility] Comment on above: Performed By: #### E TH, ACET, SALYC, CMP #### [facility] [address] [place] [address] Dr. Zana Davenport PCP Negative Normal NEGATIVE [facility] Comment on above: Performed By: #### E TH, ACET, SALYC, CMP #### [facility] [address] [place] [address] Dr. Zana Davenport PPX Negative Normal NEGATIVE [facility] Comment on above: Performed By: #### E TH, ACET, SALYC, CMP #### [facility] [address] [place] [address] Dr. Zana Davenport TCA Negative Normal NEGATIVE [facility] Comment on above: Performed By: #### E TH, ACET, SALYC, CMP #### [facility] [address] [place] [address] Dr. Zana Davenport THC Negative Normal NEGATIVE [facility] Comment on above: Performed By: #### E TH, ACET, SALYC, CMP #### [facility] [address] [address] [address] Zana Davenport ER URINE PROFILEon 3 Bilirubin Ql (U) Negative Normal NEGATIVE [facility] Comment on above: Performed By: #### E TH, ACET, SALYC, CMP #### [facility] [address] [address] [address] Zana Davenport Clarity (U) CLEAR Normal CLEAR [facility] Comment on above: Performed By: #### E TH, ACET, SALYC, CMP #### [facility] [address] [address] [address] Zana Davenport Color (U) LT. YELLOW Normal YELLOW [facility] Comment on above: Performed By: #### E TH, ACET, SALYC, CMP #### [facility] [address] [place] [address] Dr. Zana BARNEY A micrscopic examination will be performed if indicated. Normal [facility] Comment on above: Performed By: #### E TH, ACET, SALYC, CMP #### [facility] [address] [address] [address] Zana Davenport Glucose Ql (U) Negative Normal NEGATIVE [facility] Comment on above: Performed By: #### E , ACET, SALYC, CMP #### [facility] [address] [place] [address] Dr. Zana Davenport Hemoglobin Ql (U) Negative Normal NEGATIVE [facility] Comment on above: Performed By: #### E , ACET, SALYC, CMP #### [facility] [address] [address] [address] Zana Davenport Ketones Ql (U) Negative Normal NEGATIVE [facility] Comment on above: Performed By: #### E TH, ACET, SALYC, CMP #### [facility] [address] [place] [address] Dr. Zana Davenport LEUKOCYTES Negative Normal NEGATIVE [facility] Comment on above: Performed By: #### E TH, ACET, SALYC, CMP #### [facility] [address] [place] [address] Dr. Zana Davenport Nitrite Ql (U) Negative Normal NEGATIVE [facility] Comment on above: Performed By: #### E TH, ACET, SALYC, CMP #### [facility] [address] [place] [address] Dr. Zana Davenport pH (U) 6.0 [pH] Normal 5-9 [facility] Comment on above: Performed By: #### E TH, ACET, SALYC, CMP #### [facility] [address] [place] [address] Dr. Zana Davenport SPEC GRAVITY 1.010 Normal 1.005-<=1.025 [facility] Comment on above: Performed By: #### E TH, ACET, SALYC, CMP #### [facility] [address] [place] [address] Dr. Zana Davenport UA PROTEIN Negative Normal NEGATIVE/ TRACE [facility] Comment on above: Performed By: #### E TH, ACET, SALYC, CMP #### [facility] [address] [place] [address] Dr. Zana [place] MICRO IND NOT INDICATED Normal [facility] Comment on above: Performed By: #### E TH, ACET, SALYC, CMP #### [facility] [address] [place] [address] Dr. Zana [place] Urobilinogen Qn (U) 0.2 {Joi'U}/dL Normal 0.2 - 1. 0 [facility] Comment on above: Performed By: #### E TH, ACET, SALYC, CMP #### [facility] [address] [place] [address] Dr. Zana [place] ETHANOL (BLD ALC)on 11-14-19 ALC NOTE NOTE: 80 mg/dl is th e legal limit for a blood alcohol level Normal [facility] Comment on above: Performed By: #### E TH, ACET, SALYC, CMP #### [facility] [address] [place] [address] Dr. Zana [place] Ethanol [Mass/Vol] mg/dL Normal [facility] Comment on above: Performed By: #### E TH, ACET, SALYC, CMP #### [facility] [address] [place] [address] Dr. Znaa [place] PROF 14(COMP METB)on 023 Albumin [Mass/Vol] 4.4 g/dL Normal 3.4-5.0 [facility] Comment on above: Performed By: #### E TH, ACET, SALYC, CMP #### [facility] [address] [place] [address] Dr. Zana [place] Albumin/Globulin [Mass ratio] 1.3 {ratio} Normal [facility] Comment on above: Performed By: #### E , ACET, SALYC, CMP #### [facility] [address] [place] [address] Dr. Zana [place] ALP [Catalytic activity/Vol] 105 U/L Normal 46-116 [facility] Comment on above: Performed By: #### E , ACET, SALYC, CMP #### [facility] [address] [place] [address] Dr. Zana [place] ALT [Catalytic activity/Vol] 40 U/L Normal 16-63 [facility] Comment on above: Performed By: #### E , ACET, SALYC, CMP #### [facility] [address] [place] [address] Dr. Zana [place] Anion gap [Moles/Vol] 15.7 mmol/L Normal [facility] Comment on above: Performed By: #### E TH, ACET, SALYC, CMP #### [facility] [address] [place] [address] Dr. Zana [place] AST [Catalytic activity/Vol] 12 U/L Critically low 15-37 [facility] Comment on above: Performed By: #### E , ACET, SALYC, CMP #### [facility] [address] [place] [address] Dr. Zana [place] Bilirubin [Mass/Vol] 0.5 mg/dL Normal 0.2-1.0 [facility] Comment on above: Performed By: #### E TH, ACET, SALYC, CMP #### [facility] [address] [place] [address] Dr. Zana [place] Calcium [Mass/Vol] 9.4 mg/dL Normal 8.5-10.1 [facility] Comment on above: Performed By: #### E TH, ACET, SALYC, CMP #### [facility] [address] [place] [address] Dr. Zana [place] Chloride [Moles/Vol] 102 mmol/L Normal 98-107 [facility] Comment on above: Performed By: #### E TH, ACET, SALYC, CMP #### [facility] [address] [place] [address] Dr. Zana [place] CO2 [Moles/Vol] 26.0 mmol/L Normal 21.0-32.0 [facility] Comment on above: Performed By: #### E TH, ACET, SALYC, CMP #### [facility] [address] [place] [address] Dr. Zana [place] Creatinine [Mass/Vol] 0.70 mg/dL Normal 0.70-1.30 [facility] Comment on above: Performed By: #### E , ACET, SALYC, CMP #### [facility] [address] [place] [address] Dr. Zana [place] EGFR-AF MONEGASQUE >60 Normal >=60 [facility] Comment on above: Performed By: #### E , ACET, SALYC, CMP #### [facility] [address] [place] [address] Dr. Zana [place] EGFR-NON AF MONEGASQUE >60 Normal >=60 [facility] Comment on above: Performed By: #### E TH, ACET, SALYC, CMP #### [facility] [address] [place] [address] Dr. Zana [place] Globulin (S) [Mass/Vol] 3.3 g/dL Normal [facility] Comment on above: Performed By: #### E TH, ACET, SALYC, CMP #### [facility] [address] [place] [address] Dr. Zana [place] Glucose [Mass/Vol] 106 mg/dL Normal 74-106 [facility] Comment on above: Performed By: #### E TH, ACET, SALYC, CMP #### [facility] [address] [address] [address] Zana [place] Potassium [Moles/Vol] 3.7 mmol/L Normal 3.5-5.1 [facility] Comment on above: Performed By: #### E TH, ACET, SALYC, CMP #### [facility] [address] [address] [address] Zana [place] Protein [Mass/Vol] 7.7 g/dL Normal 6.4-8.2 [facility] Comment on above: Performed By: #### E TH, ACET, SALYC, CMP #### [facility] [address] [place] [address] Dr. Zana [place] Sodium [Moles/Vol] 140 mmol/L Normal 136-145 [facility] Comment on above: Performed By: #### E TH, ACET, SALYC, CMP #### [facility] [address] [place] [address] Dr. Zana [place] Urea nitrogen [Mass/Vol] 10.0 mg/dL Normal 7.0-18.0 [facility] Comment on above: Performed By: #### E TH, ACET, SALYC, CMP #### [facility] [address] [place] [address] Dr. Zana [place] Urea nitrogen/Creatinine [Mass ratio] 14.3 mg/mg Normal [facility] Comment on above: Performed By: #### E TH, ACET, SALYC, CMP #### [facility] [address] [place] [address] Dr. Zana [place] SALICYLATEon 11-13-2022 SALICYLATE <2.8 Normal <=19.9 [facility] Comment on above: Performed By: #### E TH, ACET, SALYC, CMP #### [facility] [address] [place] [address] Dr. Zana [place] CTA CHEST WO W CONon 023 CTA CHEST WO W CON CTA CHEST WO W CON: 11/06/2022 10:17 PM EDT CLINICAL HISTORY: 22 years old Male with SHORTNESS OF BREATH. TECHNIQUE: CTA CHEST WO W CON was performed with axial CT images through the thorax as well as sagittal and coronal reformations also obtained after intravenous administration of contrast. Dose reduction techniques were achieved by using automated exposure control and/or adjustment of mA and/or kV according to patient size and/or use of iterative reconstruction technique. COMPARISON: Chest x-ray performed on this date. FINDINGS: The pulmonary arteries are well opacified with no evidence of filling defect to suggest pulmonary embolism. The thoracic aorta is normal in course and caliber without aneurysm. The heart appears normal with no evidence of pericardial effusion. There are no enlarged mediastinal lymph nodes. The tracheobronchial tree is patent. The lungs are clear. There is no consolidation, mass or pleural effusion. There is no pneumothorax. The visualized portion of the upper abdomen is grossly unremarkable. The osseous structures are unremarkable. Severe bilateral gynecomastia. IMPRESSION: 1. No pulmonary embolus identified. The lungs are clear. 2. Severe bilateral gynecomastia. Electronically authenticated by: SHAE BOYLE Date: 2022-11-06 23:17 Normal [facility] CBC AUTO DIFFon 11-06-2022 BASO # 0.0 103/ul Normal 0.0-0.1 [facility] Comment on above: Performed By: #### C BC #### [facility] [address] [place] [address] Dr. Zana [place] Basophils/100 WBC (Bld) 0.3 % Normal 0.2-2.0 [facility] Comment on above: Performed By: #### C BC #### [facility] [address] [place] [address] Dr. Zana [place] EO # 0.1 103/ul Normal 0.0-0.7 [facility] Comment on above: Performed By: #### C BC #### [facility] [address] [place] [address] Dr. Zana [place] Eosinophils/100 WBC (Bld) 1.0 % Normal 0.9-7.0 [facility] Comment on above: Performed By: #### C BC #### [facility] [address] [place] [address] Dr. Zana [place] Erythrocyte distribution width (RBC) [Ratio] 12.5 % Normal 11.0-15.0 [facility] Comment on above: Performed By: #### C BC #### [facility] [address] [place] [address] Dr. Zana [place] Hematocrit (Bld) [Volume fraction] 39.5 % Critically low 42.0-54.0 [facility] Comment on above: Performed By: #### C BC #### [facility] [address] [place] [address] Dr. Zana [place] Hemoglobin (Bld) [Mass/Vol] 14.2 g/dL Normal 14.0-18.0 [facility] Comment on above: Performed By: #### C BC #### [facility] [address] [place] [address] Dr. Zana [place] IG # 0.01 10e3/ul Normal 0.00-0.03 [facility] Comment on above: Performed By: #### C BC #### [facility] [address] [place] [address] Dr. Zana [place] IG % 0.2 % Normal 0.0-0.5 [facility] Comment on above: Performed By: #### C BC #### [facility] [address] [place] [address] Dr. Zana [place] LYMPH # 0.7 103/ul Critically low 1.2-3.8 [facility] Comment on above: Performed By: #### C BC #### [facility] [address] [place] [address] Dr. Zana [place] Lymphocytes/100 WBC (Bld) 11.9 % Critically low 20.5-60.0 [facility] Comment on above: Performed By: #### C BC #### [facility] [address] [place] [address] Dr. Zana [place] MANUAL DIFF REQ NO Normal [facility] Comment on above: Performed By: #### C BC #### [facility] [address] [place] [address] Dr. Zana [place] MCH (RBC) [Entitic mass] 31.0 pg Normal 25.9-34.0 [facility] Comment on above: Performed By: #### C BC #### [facility] [address] [address] [address] Zana [place] MCHC (RBC) [Mass/Vol] 35.9 g/dL Critically high 29.9-35.2 [facility] Comment on above: Performed By: #### C BC #### [facility] [address] [address] [address] Zana [place] MCV (RBC) [Entitic vol] 86.2 fL Normal 80.0-94.0 [facility] Comment on above: Performed By: #### C BC #### [facility] [address] [address] [address] Zana [place] MONO # 0.4 103/ul Normal 0.3-0.8 [facility] Comment on above: Performed By: #### C BC #### [facility] [address] [address] [address] Zana [place] Monocytes/100 WBC (Bld) 7.0 % Normal 1.7-12.0 [facility] Comment on above: Performed By: #### C BC #### [facility] [address] [address] [address] Zana [place] NEUT # 4.8 103/ul Normal 1.4-6.5 [facility] Comment on above: Performed By: #### C BC #### [facility] [address] [address] [address] Zana [place] Neutrophils/100 WBC (Bld) 79.6 % Critically high 43.0-75.0 [facility] Comment on above: Performed By: #### C BC #### [facility] [address] [address] [address] Zana [place] Platelet mean volume (Bld) [Entitic vol] 9.4 fL Critically low 9.5-13.5 [facility] Comment on above: Performed By: #### C BC #### [facility] [address] [address] [address] Zana [place] PLT 188 103/ul Normal 150-450 [facility] Comment on above: Performed By: #### C BC #### [facility] [address] [address] [address] Zana [place] RBC 4.58 106/ul Critically low 4.70-6.10 [facility] Comment on above: Performed By: #### C BC #### [facility] [address] [address] [address] Zana [place] WBC 6.0 103/ul Normal 4.0-11.0 [facility] Comment on above: Performed By: #### C BC #### [facility] [address] [address] [address] Zana [place] D-DIMERon 11-06-2022 D-DIMER 1.21 mg/L FEU Critically high <=0.59 [facility] Comment on above: Performed By: #### E TH, ACET, SALYC, CMP #### [facility] [address] [place] [address] Dr. Zana [place] D-DIMER COMMENTS SEE BELOW Normal [facility] Comment on above: Result Comment: Incr eases in D-Dimer concentration observed with thromboembolic events can be variable due to localization, size, and age of the thrombus. Therefore, a thromboembolic event cannot be diagnosed with certainty on the basis of the reference range. D-Dimers may also be elevated for a variety of disorders including: advanced age, , coronary disease, cancer, liver disease, infection, inflammation, hematoma, DIC, trauma, post-surgery, diabetes, thrombolytic or anticoagulant therapy, stress, and generalized hospitalization. Performed By: #### E TH, ACET, SALYC, CMP #### [facility] [address] [place], [place] [id number] Dr. Zana [place] LACTATE/LACTIC ACIDon 2022 Lactate [Moles/Vol] 1.0 mmol/L Normal 0.4-2.0 [facility] Comment on above: Performed By: #### L ACT #### [facility] [address] [address] [address] Zana [place] PROF 14(COMP METB)on 023 Albumin [Mass/Vol] 3.9 g/dL Normal 3.4-5.0 [facility] Comment on above: Performed By: #### E TH, ACET, SALYC, CMP #### [facility] [address] [place] [address] Dr. Zana [place] Albumin/Globulin [Mass ratio] 1.2 {ratio} Normal [facility] Comment on above: Performed By: #### E TH, ACET, SALYC, CMP #### [facility] [address] [place] [address] Dr. Zana [place] ALP [Catalytic activity/Vol] 89 U/L Normal 46-116 [facility] Comment on above: Performed By: #### E , ACET, SALYC, CMP #### [facility] [address] [place] [address] Dr. Zana [place] ALT [Catalytic activity/Vol] 39 U/L Normal 16-63 [facility] Comment on above: Performed By: #### E , ACET, SALYC, CMP #### [facility] [address] [place] [address] Dr. Zana [place] Anion gap [Moles/Vol] 12.0 mmol/L Normal [facility] Comment on above: Performed By: #### E , ACET, SALYC, CMP #### [facility] [address] [place] [address] Dr. Zana [place] AST [Catalytic activity/Vol] 18 U/L Normal 15-37 [facility] Comment on above: Performed By: #### E , ACET, SALYC, CMP #### [facility] [address] [place] [address] Dr. Zana [place] Bilirubin [Mass/Vol] 0.7 mg/dL Normal 0.2-1.0 [facility] Comment on above: Performed By: #### E , ACET, SALYC, CMP #### [facility] [address] [place] [address] Dr. Zana [place] Calcium [Mass/Vol] 8.6 mg/dL Normal 8.5-10.1 [facility] Comment on above: Performed By: #### E , ACET, SALYC, CMP #### [facility] [address] [address] [address] Zana [place] Chloride [Moles/Vol] 103 mmol/L Normal 98-107 [facility] Comment on above: Performed By: #### E TH, ACET, SALYC, CMP #### [facility] [address] [address] [address] Zana [place] CO2 [Moles/Vol] 26.3 mmol/L Normal 21.0-32.0 [facility] Comment on above: Performed By: #### E TH, ACET, SALYC, CMP #### [facility] [address] [address] [address] Zana [place] Creatinine [Mass/Vol] 0.77 mg/dL Normal 0.70-1.30 [facility] Comment on above: Performed By: #### E TH, ACET, SALYC, CMP #### [facility] [address] [address] [address] Zana [place] EGFR-AF MONEGASQUE >60 Normal >=60 [facility] Comment on above: Performed By: #### E TH, ACET, SALYC, CMP #### [facility] [address] [address] [address] Zana [place] EGFR-NON AF MONEGASQUE >60 Normal >=60 [facility] Comment on above: Performed By: #### E TH, ACET, SALYC, CMP #### [facility] [address] [address] [address] Zana [place] Globulin (S) [Mass/Vol] 3.2 g/dL Normal [facility] Comment on above: Performed By: #### E TH, ACET, SALYC, CMP #### [facility] [address] [address] [address] Zana [place] Glucose [Mass/Vol] 96 mg/dL Normal 74-106 [facility] Comment on above: Performed By: #### E TH, ACET, SALYC, CMP #### [facility] [address] [address] [address] Zana [place] Potassium [Moles/Vol] 3.3 mmol/L Critically low 3.5-5.1 [facility] Comment on above: Performed By: #### E TH, ACET, SALYC, CMP #### [facility] [address] [place] [address] Dr. Zana [place] Protein [Mass/Vol] 7.1 g/dL Normal 6.4-8.2 [facility] Comment on above: Performed By: #### E TH, ACET, SALYC, CMP #### [facility] [address] [place] [address] Dr. Zana [place] Sodium [Moles/Vol] 138 mmol/L Normal 136-145 [facility] Comment on above: Performed By: #### E TH, ACET, SALYC, CMP #### [facility] [address] [place] [address] Dr. Zana [place] Urea nitrogen [Mass/Vol] 12.0 mg/dL Normal 7.0-18.0 [facility] Comment on above: Performed By: #### E TH, ACET, SALYC, CMP #### [facility] [address] [place] [address] Dr. Zana [place] Urea nitrogen/Creatinine [Mass ratio] 15.6 mg/mg Normal [facility] Comment on above: Performed By: #### E TH, ACET, SALYC, CMP #### [facility] [address] [place] [address] Dr. Zana [place] TROPONIN, HIGH SENSITIVITYon 11-06-2022 HSTROP 18.7 pg/mL Normal 4.0-76.1 [facility] Comment on above: Result Comment: CUT- OFF POINTS HAVE BEEN ESTABLISHED BASED ON THE FOURTH UNIVERSAL DEFINITIONS OF MYOCARDIAL INFARCTION. THE UPPER REFERENCE LIMIT (URL) OF TROPONIN, DEFINED THE 99TH PERCENTILE OF cTnI DISTRIBUTION IN A REFERENCE POPULATION, HAS BEEN CONFIRMED THE DECISION THRESHOLD FOR [place] DIAGNOSIS. Performed By: #### E TH, ACET, SALYC, CMP #### [facility] [address] [place] [address] Dr. Zana [place] TSHon 11-06-2022 TSH 1.315 uIU/mL Normal 0.358-3.740 [facility] Comment on above: Performed By: #### E TH, ACET, SALYC, CMP #### [facility] [address] [place] [address] Dr. Zana [place] XR CHEST 2 Von 11-06-2022 XR CHEST 2 V EXAMINATION: XR CHES T 2 V HISTORY: Weakness and shortness of breath COMPARISON: None. TECHNIQUE: PA and lateral chest x-rays FINDINGS: The lung parenchyma is free of consolidation or infiltrate. No pneumothorax or pleural effusion. The cardiac, mediastinal and hilar contours are normal. The visualized osseous structures exhibit no gross abnormality. IMPRESSION: Normal chest x-rays Electronically authenticated by: NAWAF GREENBERG Date: 2022-11-06 21:24 Normal [facility] ACETAMINOPHENon 10-05-2022 Acetaminophen [Mass/Vol] ug/mL Critically low 10.0-30.0 [facility] Comment on above: Performed By: #### E TH, LANI LEONARDO, CMP #### [facility] [address] [place] [address] Dr. Zana [place] CBC AUTO DIFFon 10-05-2022 BASO # 0.0 103/ul Normal 0.0-0.1 [facility] Comment on above: Performed By: #### C BC #### [facility] [address] [place] [address] Dr. Zana [place] Basophils/100 WBC (Bld) 0.3 % Normal 0.2-2.0 [facility] Comment on above: Performed By: #### C BC #### [facility] [address] [place] [address] Dr. Zana [place] EO # 0.1 103/ul Normal 0.0-0.7 [facility] Comment on above: Performed By: #### C BC #### [facility] [address] [place] [address] Dr. Zana [place] Eosinophils/100 WBC (Bld) 1.8 % Normal 0.9-7.0 [facility] Comment on above: Performed By: #### C BC #### [facility] [address] [place] [address] Dr. Zana [place] Erythrocyte distribution width (RBC) [Ratio] 12.2 % Normal 11.0-15.0 [facility] Comment on above: Performed By: #### C BC #### [facility] [address] [place] [address] Dr. Zana [place] Hematocrit (Bld) [Volume fraction] 45.8 % Normal 42.0-54.0 [facility] Comment on above: Performed By: #### C BC #### [facility] [address] [place] [address] Dr. Zana [place] Hemoglobin (Bld) [Mass/Vol] 16.4 g/dL Normal 14.0-18.0 [facility] Comment on above: Performed By: #### C BC #### [facility] [address] [place] [address] Dr. Zana [place] IG # 0.03 10e3/ul Normal 0.00-0.03 [facility] Comment on above: Performed By: #### C BC #### [facility] [address] [place] [address] Dr. Zana [place] IG % 0.4 % Normal 0.0-0.5 [facility] Comment on above: Performed By: #### C BC #### [facility] [address] [place] [address] Dr. Zana [place] LYMPH # 1.5 103/ul Normal 1.2-3.8 [facility] Comment on above: Performed By: #### C BC #### [facility] [address] [place] [address] Dr. Zana [place] Lymphocytes/100 WBC (Bld) 19.9 % Critically low 20.5-60.0 [facility] Comment on above: Performed By: #### C BC #### [facility] [address] [place] [address] Dr. Zana [place] MANUAL DIFF REQ NO Normal [facility] Comment on above: Performed By: #### C BC #### [facility] [address] [place] [address] Dr. Zana [place] MCH (RBC) [Entitic mass] 30.9 pg Normal 25.9-34.0 [facility] Comment on above: Performed By: #### C BC #### [facility] [address] [address] [address] Zana [place] MCHC (RBC) [Mass/Vol] 35.8 g/dL Critically high 29.9-35.2 [facility] Comment on above: Performed By: #### C BC #### [facility] [address] [place] [address] Dr. Zana [place] MCV (RBC) [Entitic vol] 86.3 fL Normal 80.0-94.0 [facility] Comment on above: Performed By: #### C BC #### [facility] [address] [place] [address] Dr. Zana [place] MONO # 0.5 103/ul Normal 0.3-0.8 [facility] Comment on above: Performed By: #### C BC #### [facility] [address] [place] [address] Dr. Zana [place] Monocytes/100 WBC (Bld) 6.1 % Normal 1.7-12.0 [facility] Comment on above: Performed By: #### C BC #### [facility] [address] [place] [address] Dr. Zana Daven[place] NEUT # 5.4 103/ul Normal 1.4-6.5 [facility] Comment on above: Performed By: #### C BC #### [facility] [address] [place] [address] Dr. Zana Davenport Neutrophils/100 WBC (Bld) 71.5 % Normal 43.0-75.0 [facility] Comment on above: Performed By: #### C BC #### [facility] [address] [place] [address] Dr. Zana Daven[place] Platelet mean volume (Bld) [Entitic vol] 9.6 fL Normal 9.5-13.5 [facility] Comment on above: Performed By: #### C BC #### [facility] [address] [place] [address] Dr. Zana Davenport PLT 238 103/ul Normal 150-450 [facility] Comment on above: Performed By: #### C BC #### [facility] [address] [place] [address] Dr. Zana [place] RBC 5.31 106/ul Normal 4.70-6.10 [facility] Comment on above: Performed By: #### C BC #### [facility] [address] [place] [address] Dr. Zana Davenport WBC 7.6 103/ul Normal 4.0-11.0 [facility] Comment on above: Performed By: #### C BC #### [facility] [facility] [address] [place] [address] Dr. Zana Davenport ER URINE PROFILEon 3 Bilirubin Ql (U) Negative Normal NEGATIVE [facility] Comment on above: Performed By: #### E TH, ACET, SALYC, CMP #### [facility] [address] [place] [address] Dr. Zana Davenport Clarity (U) CLEAR Normal CLEAR [facility] Comment on above: Performed By: #### E , ACET, SALYC, CMP #### [facility] [address] [place] [address] Dr. Zana Davenport Color (U) LT. YELLOW Normal YELLOW [facility] Comment on above: Performed By: #### E , ACET, SALYC, CMP #### [facility] [address] [place] [address] Dr. Zana BARNEY A micrscopic examination will be performed if indicated. Normal [facility] Comment on above: Performed By: #### E TH, ACET, SALYC, CMP #### [facility] [address] [place] [address] Dr. Zana Davenport Glucose Ql (U) Negative Normal NEGATIVE [facility] Comment on above: Performed By: #### E TH, ACET, SALYC, CMP #### [facility] [address] [place] [address] Dr. Zana Davenport Hemoglobin Ql (U) Negative Normal NEGATIVE The [facility] Comment on above: Performed By: #### E TH, ACET, SALYC, CMP #### [facility] [address] [place] [address] Dr. Zana Davenport Ketones Ql (U) Negative Normal NEGATIVE [facility] Comment on above: Performed By: #### E TH, ACET, SALYC, CMP #### [facility] [address] [place] [address] Dr. Zana Davenport LEUKOCYTES Negative Normal NEGATIVE [facility] Comment on above: Performed By: #### E TH, ACET, SALYC, CMP #### [facility] [address] [address] [address] Zana Davenport Nitrite Ql (U) Negative Normal NEGATIVE [facility] Comment on above: Performed By: #### E TH, ACET, SALYC, CMP #### [facility] [address] [place] [address] Dr. Zana Davenport pH (U) 7.5 [pH] Normal 5-9 [facility] Comment on above: Performed By: #### E TH, ACET, SALYC, CMP #### [facility] [address] [place] [address] Dr. Zana Davenport SPEC GRAVITY 1.010 Normal 1.005-<=1.025 [facility] Comment on above: Performed By: #### E TH, ACET, SALYC, CMP #### [facility] [address] [place] [address] Dr. Zana Davenport UA PROTEIN Negative Normal NEGATIVE/ TRACE [facility] Comment on above: Performed By: #### E TH, ACET, SALYC, CMP #### [facility] [address] [place] [address] Dr. Zana Davenport UR MICRO IND NOT INDICATED Normal [facility] Comment on above: Performed By: #### E TH, ACET, SALYC, CMP #### [facility] [address] [place] [address] Dr. Zana Davenport Urobilinogen Qn (U) 0.2 {Joi'U}/dL Normal 0.2 - 1. 0 [facility] Comment on above: Performed By: #### E TH, ACET, SALYC, CMP #### [facility] [address] [place] [address] Dr. Zana Davenport ETHANOL (BLD ALC)on 10-05-19 23 ALC NOTE NOTE: 80 mg/dl is th e legal limit for a blood alcohol level Normal [facility] Comment on above: Performed By: #### E TH, ACET, SALYC, CMP #### [facility] [address] [address] [address] Zana Davenport Ethanol [Mass/Vol] mg/dL Normal [facility] Comment on above: Performed By: #### E TH, ACET, SALYC, CMP #### [facility] [address] [address] [address] Zana Davenport PROF 14(COMP METB)on 023 Albumin [Mass/Vol] 4.8 g/dL Normal 3.4-5.0 [facility] Comment on above: Performed By: #### E TH, ACET, SALYC, CMP #### [facility] [address] [place] [address] Dr. Zana Davenport Albumin/Globulin [Mass ratio] 1.5 {ratio} Normal [facility] Comment on above: Performed By: #### E TH, ACET, SALYC, CMP #### [facility] [address] [address] [address] Zana Davenport ALP [Catalytic activity/Vol] 133 U/L Critically high 46-116 [facility] Comment on above: Performed By: #### E TH, ACET, SALYC, CMP #### [facility] [address] [address] [address] Zana Davenport ALT [Catalytic activity/Vol] 43 U/L Normal 16-63 [facility] Comment on above: Performed By: #### E TH, ACET, SALYC, CMP #### [facility] [address] [address] [address] Zana Davenport Anion gap [Moles/Vol] 14.2 mmol/L Normal [facility] Comment on above: Performed By: #### E TH, ACET, SALYC, CMP #### [facility] [address] [address] [address] Zana Davenport AST [Catalytic activity/Vol] 18 U/L Normal 15-37 [facility] Comment on above: Performed By: #### E TH, ACET, SALYC, CMP #### [facility] [address] [place] [address] Dr. Zana Davenport Bilirubin [Mass/Vol] 0.4 mg/dL Normal 0.2-1.0 [facility] Comment on above: Performed By: #### E TH, ACET, SALYC, CMP #### [facility] [address] [place] [address] Dr. Zana Davenport Calcium [Mass/Vol] 9.6 mg/dL Normal 8.5-10.1 [facility] Comment on above: Performed By: #### E , ACET, SALYC, CMP #### [facility] [address] [place] [address] Dr. Zana Davenport Chloride [Moles/Vol] 101 mmol/L Normal 98-107 [facility] Comment on above: Performed By: #### E , ACET, SALYC, CMP #### [facility] [address] [place] [address] Dr. Zana Davenport CO2 [Moles/Vol] 26.6 mmol/L Normal 21.0-32.0 [facility] Comment on above: Performed By: #### E , ACET, SALYC, CMP #### [facility] [address] [place] [address] Dr. Zana Davenport Creatinine [Mass/Vol] 0.84 mg/dL Normal 0.70-1.30 [facility] Comment on above: Performed By: #### E TH, ACET, SALYC, CMP #### [facility] [address] [place] [address] Dr. Zana Davenport EGFR-AF MONEGASQUE >60 Normal >=60 [facility] Comment on above: Performed By: #### E TH, ACET, SALYC, CMP #### [facility] [address] [place] [address] Dr. Zana Davenport EGFR-NON AF MONEGASQUE >60 Normal >=60 [facility] Comment on above: Performed By: #### E TH, ACET, SALYC, CMP #### [facility] [address] [place] [address] Dr. Zana Davenport Globulin (S) [Mass/Vol] 3.3 g/dL Normal [facility] Comment on above: Performed By: #### E TH, ACET, SALYC, CMP #### [facility] [address] [place] [address] Dr. Zana Davenport Glucose [Mass/Vol] 109 mg/dL Critically high 74-106 T [facility] Comment on above: Performed By: #### E TH, ACET, SALYC, CMP #### [facility] [address] [place] [address] Dr. Zana Davenport Potassium [Moles/Vol] 3.8 mmol/L Normal 3.5-5.1 [facility] Comment on above: Performed By: #### E TH, ACET, SALYC, CMP #### [facility] [address] [place] [address] Dr. Zana Davenport Protein [Mass/Vol] 8.1 g/dL Normal 6.4-8.2 [facility] Comment on above: Performed By: #### E , ACET, SALYC, CMP #### [facility] [address] [place] [address] Dr. Zana Davenport Sodium [Moles/Vol] 138 mmol/L Normal 136-145 [facility] Comment on above: Performed By: #### E TH, ACET, SALYC, CMP #### [facility] [address] [place] [address] Dr. Zana Davenport Urea nitrogen [Mass/Vol] 12.0 mg/dL Normal 7.0-18.0 [facility] Comment on above: Performed By: #### E TH, ACET, SALYC, CMP #### [facility] [address] [place] [address] Dr. Zana Davenport Urea nitrogen/Creatinine [Mass ratio] 14.3 mg/mg Normal [facility] Comment on above: Performed By: #### E TH, ACET, SALYC, CMP #### [facility] [address] [place] [address] Dr. Zana Davenport SALICYLATEon 10-05-2022 SALICYLATE 3.1 mg/dL Normal <=19.9 [facility] Comment on above: Performed By: #### E JORDEN POWERS SALYC, CMP #### [facility] [address] [address] [address] Zana Davenport XR TIB_FIB RT 2Von 3 XR TIB_FIB RT 2V IMAGES REVIEWED: XR TIB_FIB RT 2V COMPARISON: None available. CLINICAL INDICATION: Pain FINDINGS/IMPRESSION: 1. Mild soft tissue swelling in the anterior upper leg. 2. No evidence of acute osseous abnormality of the right tibia/fibula. Electronically authenticated by: MARKUS DIEGO Date: 2022-10-05 17:26 Normal [facility] Vital Signs Date Time Vital Sign Value Performing Clinician Facility 05-05-2024 08:27-0400 Body height 165.1 cm Bharti Barnett CLOUD PHYSICIST Work Phone: [facility] 05-05-2024 08:27-0400 Body mass index (BMI) [Ratio] 28.46 kg/m2 Bharti Barnett CLOUD PHYSICIST Work Phone: [facility] 05-05-2024 08:27-0400 Body temperature 96.6 [degF] Bharti Barnett CLOUD PHYSICIST Work Phone: [facility] 05-05-2024 08:27-0400 Body weight 77.56 kg Bharti Barnett CLOUD PHYSICIST Work Phone: [facility] 05-05-2024 08:27-0400 Diastolic blood pressure 94 mm[Hg] Bharti Barnett CLOUD PHYSICIST Work Phone: [facility] Comment on above: RT ARM 120/90 LG CUFF 05-05-2024 08:27-0400 Heart rate 76 /min Bharti Barnett CLOUD PHYSICIST Work Phone: [facility] Comment on above: 98$ O2 05-05-2024 08:27-0400 Systolic blood pressure 124 mm[Hg] Bharti Barnett CLOUD PHYSICIST Work Phone: [facility] Comment on above: RT ARM 120/90 LG CUFF 11-17-2022 07:30-0400 Body temperature 97.5 [degF] PHYSICIAN NO [facility] 11-17-2022 07:30-0400 Diastolic blood pressure 68 mm[Hg] PHYSICIAN NO [facility] 11-17-2022 07:30-0400 Heart rate 67 /min PHYSICIAN NO [facility] 11-17-2022 07:30-0400 Respiratory rate 18 /min PHYSICIAN NO [facility] 11-17-2022 07:30-0400 SaO2% (BldA) [Mass fraction] 100 % PHYSICIAN NO [facility] 11-17-2022 07:30-0400 Systolic blood pressure 115 mm[Hg] PHYSICIAN NO [facility] 11-14-2022 14:34-0400 Body height 165.[address] [facility] 11-13-2022 18:01-0400 Body weight 70.[address] [facility] Encounters Encounter Date Encounter Type Care Provider Facility Start: 05-05-2024 End: 05-05-2024 Bamboo flowsheet Bharti Vigilk CLOUD PHYSICIST Work Phone: [facility] Start: 05-05-2024 End: 05-05-2024 Bamboo flowsheet Bharti Harrisontrick CLOUD PHYSICIST Work Phone: [facility] Start: 05-05-2024 End: 05-05-2024 Office outpatient visit 10 minutes Bharit Vigilk CLOUD PHYSICIST Work Phone: [facility] Comment on above: Bilateral impacted c erumen (Primary Dx); Tension headache; Muscle pain, cervical; Non-recurrent acute suppurative otitis media of both ears without spontaneous rupture of tympanic membranes Start: 05-05-2024 End: 05-05-2024 ambulatory BHARTI HARRISONTRICK Not Available Start: 02-04-2024 End: 02-04-2024 ambulatory SHAIKH TAN Not Available Start: 08-27-2023 ambulatory Evens Calderon acility:[facility] Start: 11-13-2022 End: 11-17-2022 Evaluation and management of inpatient Evens Brambila Facility:[facility] Start: 11-13-2022 End: 11-17-2022 Evaluation and management of inpatient PHYSICIAN RAD [facility] Work Phone: Start: 11-13-2022 End: 11-13-[address] LULÚ NICOLE Facility:[facility] Start: 11-06-2022 End: 11-07-2022 ambulatory KEVIN MARTINEZ Facility:[facility] Start: 10-05-2022 End: 10-05-[address] OFELIA MERCHANT . Facility:[facility] Start: 01-11-2022 ambulatory JULIO WERNER Facility:[facility] Plan of Treatment Date Care Activity Detail Author Start: 05-05-2024 End: 05-05-2024 Patient encounter procedure 05/05/2024 8:30 AM EDT Office Visit [facility] [address] [facility] [facility] [place] [address] Bharti Barnett, DOMO [address] [place] [address] Arrived [facility] Comment on above: Arrived Start: 04-19-2024 Influenza vaccination Influenza Vacc ine (#1) [facility] Start: 11-17-2022 [facility] Start: 11-13-2022 Hospital admission [facility] Patient Education Depression, Ad ult (DC) [facility] [place] Instructions [facility] Work Phone: Patient referral [facility] Work Phone: Payers Date Payer Category Payer Unknown [employer] [facility] [place] [employer] [id number] 2023-Present [address] [address] [place] [address] [id number] 2023 Unknown [id number] 2022 Self-pay 1998 Unknown [id number] 1998 Unknown [id number] 1998 Unknown [id number] 1998 Unknown [id number] 1998 Unknown [id number] 1998 Unknown [id number] 1959 Self-pay [id number] 1959 Unknown [id number] Unknown 100 [facility] [employer] [id number] Unknown [id number] Unknown [id number] Social History Date Type Detail Facility Start: 11-14-2022 [facility] Start: 2000 Sex Assigned At Male F [facility] Tobacco smoking stat [facility] Tobacco smoking consumption unknown [facility] Start: 02-04-2024 End: 05-05-2024 History of Social function [facility] Start: 02-04-2024 End: 05-05-2024 Patient Health Questionnaire 2 item (PHQ-2) [Reported] [facility] Start: 2000 Sex assigned at Not on file [facility] Start: 05-05-2024 Tobacco smoking stat us NHIS Never smoked tobacco [facility] Start: 05-05-2024 Tobacco use and exposure Smokeless tobacco non-user [facility] Start: 05-05-2024 Alcoholic beverage intake Ex-drinker (finding) [facility] NEGATED: Highlighted rowStart: MARIZA History of tobacco use Passive smoker [facility] Goals Date Patient Goal Desired Activity /State Functional Status Date Assessment Result Facility 11-13-2022 Functional status Patient Not at Baseline [facility] Work Phone: Mental Status Date Assessment Result Facility 11-13-2022 Cognitive function Cognitive Sta tus Patient Not at Baseline [facility] Work Phone: History of Present illness Narrative 05-05-2024 Bharti Barnett NP - 05/05/2024 12:00 PM Chelo Barnett NP - 05/05/2024 11:57 AM Chelo Barnett NP - 05/05/2024 8:30 AM EDT Note Date & Type Note Facility 05-05-2024 History of Presen t illness Narrative Associated Problem(s): Muscle pain, cervical Tension type headache associated with muscle tenderness and neck pain No nuchal rigidity. Pt is reportedly on cell phone and looking downward frequently. Tizanidine once nightly for neck pain Associated Problem(s): Tension headache Tension type headache associated with muscle tenderness and neck pain No nuchal rigidity. Pt is reportedly on cell phone and looking downward frequently. Tizanidine once nightly for neck pain Otitis media observed- Augmentin ordered X 10 days. Rest, fluids, quiet dark room. May take migraine medications as directed. Apply ice to decrease pain. Do not smoke or drink any alcohol. Try to eat a well balanced diet and manage stress. Keep a log of migraines, frequency, onset, and duration. Images from the original note were not included. Subjective Patient ID: Petros Regalado is a 23 y.o. male who presents for Headache. HPI Headache X2 weeks Fatigue Neck pain Left occipital Denies: Cough Shortness of breath Malaise Sinus pressure Ear pain Nausea Nuicchal rigidity Tx: tylenol Was helping but has stopped. Rest, fluids, quiet dark room. May take migraine medications as directed. Apply ice to decrease pain. Do not smoke or drink any alcohol. Try to eat a well balanced diet and manage stress. Keep a log of migraines, frequency, onset, and duration. Review of Systems Constitutional: Negative for activity change, appetite change, chills, diaphoresis, fatigue, fever and unexpected weight change. HENT: Negative for congestion, ear pain, rhinorrhea, sinus pressure, sinus pain, sneezing, sore throat, trouble swallowing and voice change. Eyes: Negative for visual disturbance. Respiratory: Negative for cough, chest tightness, shortness of breath and wheezing. Cardiovascular: Negative for chest pain, palpitations and leg swelling. Gastrointestinal: Negative for abdominal distention, abdominal pain, blood in stool, constipation, diarrhea and vomiting. Genitourinary: Negative for decreased urine volume, dysuria, flank pain, frequency, hematuria and urgency. Musculoskeletal: Positive for neck pain. Negative for arthralgias, gait problem, joint swelling and myalgias. Skin: Negative for rash. Neurological: Positive for headaches. Negative for dizziness, tremors, syncope, weakness and light-headedness. Psychiatric/Behavioral: Negative for decreased concentration and suicidal ideas. The patient is not nervous/anxious. Hematological: Does not bruise/bleed easily. Endocrine: Negative for cold intolerance, heat intolerance, polydipsia, polyphagia and polyuria. Objective Physical Exam Vitals reviewed. Constitutional: Appearance: Normal appearance. HENT: Head: Normocephalic and atraumatic. Right Ear: A middle ear effusion is present. Tympanic membrane is erythematous. Left Ear: A middle ear effusion is present. Tympanic membrane is erythematous. Nose: Nose normal. Mouth/Throat: Mouth: Mucous membranes are moist. Pharynx: Oropharynx is clear. Eyes: Pupils: Pupils are equal, round, and reactive to light. Cardiovascular: Rate and Rhythm: Normal rate and regular rhythm. Pulses: Normal pulses. Heart sounds: Normal heart sounds. Pulmonary: Effort: Pulmonary effort is normal. Breath sounds: Normal breath sounds. Abdominal: General: Abdomen is flat. Bowel sounds are normal. Palpations: Abdomen is soft. Musculoskeletal: General: Normal range of motion. Cervical back: Normal range of motion. Tenderness present. Skin: General: Skin is warm and dry. Capillary Refill: Capillary refill takes less than 2 seconds. Neurological: General: No focal deficit present. Mental Status: He is alert and oriented to person, place, and time. Psychiatric: Mood and Affect: Mood normal. Behavior: Behavior normal. Assessment/Plan Problem List Items Addressed This Visit Bilateral impacted cerumen - Primary Muscle pain, cervical Tension type headache associated with muscle tenderness and neck pain No nuchal rigidity. Pt is reportedly on cell phone and looking downward frequently. Tizanidine once nightly for neck pain Relevant Medications tiZANidine (Zanaflex) 4 MG tablet Tension headache Tension type headache associated with muscle tenderness and neck pain No nuchal rigidity. Pt is reportedly on cell phone and looking downward frequently. Tizanidine once nightly for neck pain Otitis media observed- Augmentin ordered X 10 days. Rest, fluids, quiet dark room. May take migraine medications as directed. Apply ice to decrease pain. Do not smoke or drink any alcohol. Try to eat a well balanced diet and manage stress. Keep a log of migraines, frequency, onset, and duration. Relevant Medications tiZANidine (Zanaflex) 4 MG tablet Non-recurrent acute suppurative otitis media of both ears without spontaneous rupture of tympanic membranes Relevant Medications amoxicillin-clavulanate (Augmentin) 875-125 MG tablet documented in this encounter [facility] Instructions 05-05-2024 Patient Instructions Note Date & Type Note Facility 05-05-2024 Instructions Bharti Barnett NP - 05/05/2024 8:30 AM EDT Rest, fluids, quiet dark room. May take migraine medications as directed. Apply ice to decrease pain. Do not smoke or drink any alcohol. Try to eat a well balanced diet and manage stress. Keep a log of migraines, frequency, onset, and duration. Use debrox as directed for ear wax. If symptoms worsen or do not improve, call office. documented in this encounter [facility] Discharge summary 11-17-2022 Note Date & Type Note Facility 11-17-2022 Discharge summary Note Date/Time November 17, 2022 10:20am [facility] [address] [place] [id number] Discharge Summary Signed Patient: Petros Regalado MR#: [id number] : 2000 Acct:[id number] Age/Sex: 22 / M Adm Date: 3 Loc: 1S Room: [address] [place] [address]: Blanca Brambila MD Copies to: Evens Brambila MD NO FAMILY PHYSICIAN~ Providers Date of Discharge: 11/17/22 Discharging Provider: Blanca Brambila Primary Care Provider: PHYSICIAN NO FAMILY Discharge Diagnosis (1) Suicidal ideation: (2) Depression: Final Diagnosis Final Discharge Diagnosis: Depression Summary Hospital Course Hospital course: ?Mr. Regalado is a 22 year old male with no past psychiatric history presenting after his first suicide attempt last night.? [facility] .? Patient reports he has been struggling with intermittent suicidal ideation for the past few years.? Patient endorses symptoms of depression including sleep disturbances, anhedonia, lack ofenergy, inability to concentrate, changes in appetite, and suicidal ideation.? Patient was personally seen by me on the day of the encounter.? I reviewed the history and performed the chanel elements of the assessment.? I formulated the planof care and confirmed this with the medical student as noted below Patient stated that he has been feeling suicidal and reported depressed. He lives with his grandma and her boyfriend, but reported that he does not feel connected with them.? He is feeling much better in the unit today.? Rated his current depression a 2/10 and anxiety at 2/10.? He denied current suicidal ideation.? He is tolerating his medications well.? Patient is also currently transitioning from male to female. Course of Treatment The patient was familiar with the mental health therapy services available to him while on the unit and was encouraged to participate. Patient reports that he has been feeling stressed due to arguments with his boyfriend and going through the transgender journey. We discussed medication risks, benefits and indications in details. He was open to trying psychopharmacological treatment. He was started on Lexapro 5 mg p.o. daily to help with depression. He felt that his symptoms have improved on the current medication regimen. He has been compliant with treatment and reported no side effects. His sleep and appetite were okay. The patient was attending groups and described them as helpful in building coping skills. He denied any access to firearms or lethal weapons. He was social with peers on the unit and indicated that he learned a lot to improve his mental health. He felt better than before coming to the hospital and hopeful about his future. He described both his depression and anxiety as mild rating of both at 1 out of 10, with ten being the worst. He did not exhibit any disorganized behavior nor appeared to be experiencing auditory hallucinations or expressing delusions. He did not show any behavior concerningfor hossein. He was much more insightful compared to the time of admission. He understands the importance of outpatient therapy to ensure the stability of symptoms. He denied suicidal or homicidal ideation and verbalized the intent to notify the staff if he has such thoughts. No suicidal or self-injurious behaviors occurred during inpatient treatment. Patient achieved maximum benefit from attending inpatient treatment and was suitable for outpatient follow up. He understands how to utilize resources suchas calling the hotline if he has any SI/HI. He learned how to stay positive and manage his stress in a healthier way. I explained to the patient that discharge from the hospital does not mean that medical care ends here. He needs consistent outpatient psychiatric follow-up, cognitive behavioral therapy, and PCP visits to ensure stability of symptoms. He said he is planning to stay withthe grandma of his boyfriend, and a friend can pick him up today. Discharge disposition coordinated by case management Safe discharge Planning: With the cessation of all suicidal ideation, improvements in mood, and with a cessation of any psychotic process, aftercare plans were solidified. The patient was able to formulate a believable safety plan. Discharge plans were discussed with the patient and the treatment team. All agreed with the discharge plan. On the day of discharge, he was evaluated and had no complaints. He denied any SI/HI. He felt hopeful, motivated and agreed to follow up with outpatient treatment as arranged by case management. Suicide risk assessment: A thorough review of protective and risk factors was conducted during this admission. Discussed with the patient the following recommendations that would help reduce suicide which include limiting the numberof pills to a 14-day supply with one refill at the time of discharge to avoid potential overdose, involving family members in his care, consistent outpatient follow up preferably within seven days of release, and his desire to live. He reported a good therapeutic alliance, good response to medication management andtherapy, availability of local mental health services and willingness to follow up, lack of suicidal ideation, behvaior, intent or plan, lack of impulsivity, agitation, or psychosis. Pt is future-oriented and understands the importance ofoutpatient follow-up. The presence of positive factors like family and elinor, lack of access to firearms, and desire to continue his treatment is consistent with a safe discharge plan. Given the chronic risk of suicide, we discussed a plan to help him long-term safety. The patient is not suicidal or psychotic now. To help decrease his suicide risk, as best I can, I am referring him for outpatient treatment including but not limited to medication management for long-term follow-up to have somewhere to go and someone to manage him as symptoms and stressors develop. This is the best way to keep him alive. So, we discussed a crisis plan for future suicidality: at the first sign of distress, he will call the hotline;if this is not sufficient, he will 911, then call family members or friends; ultimately, he will come to the ER. MSE: Orientation: Alert and oriented to person, place, and time. Appearance/Behavior: Fair grooming and hygiene, calm, cooperative, engaged in the interview. Good eye contact. Normal psychomotor activity. Speech: regular rate, rhythm, volume, and tone. Non pressured. Knowledge: Appropriate for age and level of education Mood: okay Affect: reactive, mood-congruent Thought process: linear, logical, and goal-oriented Thought content: No SI/HI. No AVH. No delusions. He does not appear to be responding to internal stimuli. Concentration: Grossly intact based on track during the interview Associations: No loosening of associations Memory: Able to recall recent and remote historical information Insight: Fair, able to appreciate current symptoms and need for outpatient treatment Judgment: fair, agreed to follow treatment recommendations. Safety: The patient is not acutely psychotic, suicidal or homicidal and can continue treatment on an outpatient basis. He was made aware of the 11/03 emergency services of the crisis center and was advised to call 911 or go to the nearest ER in case of a crisis ( (including having thoughts of harming himself or others). Risks (metabolic, EPS, the effect on heart), benefits, and alternatives for all prescribed medications were discussed with the patient. His consent was obtained. He was advised not to drink alcohol while taking medications. Advised the use of drugs can make patient more impulsive leading to poor decisions. Continue supportive therapy with some CBT techniques. Time spent discussing smoking cessation with patient: more than 10 minutes Condition Condition at Discharge: Fair Status at Discharge Functional status at discharge: independent ambulation Time Spent with Patient Time spent providing/coordinating discharge services (# min): 99 Exam Physical Exam Vital Signs: Temp Pulse Resp BP Pulse Ox O2 Del Method 97.5 F L 67 18 115/68 100 Room Air 11/17/22 07:30 11/17/22 07:30 11/17/22 07:30 11/17/22 07:30 11/17/22 07:30 11/17/22 07:30 Discharge Plan Discharge Plan Patient Disposition: Home Activity: No Activity Restriction Diet: Regular Additional Instructions: Regular Diet No Activity Restrictions Instructions: Depression, Adult (DC), 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 (insert date/time here) Intake: (Insert date/time here) Please bring a copy of your photo ID, insurance card, and proof of household income.? Psychiatry: (Insert date/time here) Group: (Insert date/time here ) ) [facility] Hotline [Outside] Documented By: Evens Brambila MD [id number] Signed By: <Electronically signed by Evens Brambila MD> 11/17/22 1021 [facility] Work Phone: Progress note 11-16-2022 Note Date & Type Note Facility 11-16-2022 Progress note Note Date/Time November 16, 2022 8:51am [facility] [address] [place], [place] [id number] Psychiatry Progress Note Signed Patient: Petros Regalado MR#: [id number] : 2000 Acct:[id number] Age/Sex: 22 / M Adm Date: 3 Loc: 1S Room: [address] [place] [address] Type : ADM IN Attending Dr: Blanca Brambila MD Copies to: ~ Date of Service: 11/16/2022 Subjective Subjective Narrative: Today patient reports feeling better and is starting to participate in groups. He said a friend can pick him up when discharged. He is planning to stay with his BF's Grandmother. He rated depression at 5 out of 10 with 10 being the worst. Mental Status Exam Appearance: grossly normal. Fair grooming and hygiene, calm, engaged in interview. Good eye contact. Normal psychomotor activity Mental status: grossly normal Mood: Stable mood, calm Affect: mood-congruent Speech and movement: Movement normal and speech clear; regular rate, rhythm, volume, and tone. Non-pressured Attitude: cooperative Thought Process: Normal Thought Content: Denied suicidal ideation, homicidal ideation, auditory and visual hallucinations. Insight: Fair Judgment: Fair Exam Physical Exam Vital Signs: Temp Pulse Resp BP Pulse Ox O2 Del Method 97.3 F L 78 16 144/88 H 97 Room Air 11/16/22 07:30 11/16/22 07:30 11/15/22 20:16 11/16/22 07:30 11/16/22 07:30 11/16/22 07:30 Assessment/Plan Assessment/Plan (1) Suicidal ideation: Code(s): R45.851 - Suicidal ideations Status: Acute (2) Depression: Code(s): F32.A - Depression, unspecified Status: Acute Plan Petros Regalado is a 22-year-old male with symptoms consistent with major depressive disorder who reports that meds are helping and is socialzing with peers. Continue Lexapro 5 mg daily. Continue to monitor mental status. Encourage group therapy. Anticipate discharge over the weekend. Documented By: Evens Brambila MD [id number] Signed By: <Electronically signed by Evens Brambila MD> 11/16/22 0851 [facility] Work Phone: Progress note 11-16-2022 Note Date & Type Note Facility 11-16-2022 Progress note Note Date/Time November 16, 2022 8:50am [facility] [address] [place] [address] Psychiatry Progress Note Signed Patient: Petros Regalado MR#: [id number] : 2000 Acct:[id number] Age/Sex: 22 / M Adm Date: 3 Loc: Room: [address] [place] [address] Type : ADM IN Attending Dr: Blanca Brambila MD Copies to: ~ Date of Service: 11/15/2022 Subjective Subjective Narrative: Today patient reports feeling better and denied suicidal ideation. He reports sleeping well and rated his depression and anxiety both at 2/10. He is attending group therapy and reports that it is helping. He states he is tolerating the Lexapro well. Patient was personally seen by me on the day of the encounter.? I reviewed the history and performed the chanel elements of the assessment.? I formulated the planof care and confirmed this with the medical student as noted below Mental Status Exam Appearance: grossly normal. Fair grooming and hygiene, calm, engaged in interview. Good eye contact. Normal psychomotor activity Mental status: grossly normal Mood: Stable mood, calm Affect: mood-congruent Speech and movement: Movement normal and speech clear; regular rate, rhythm, volume, and tone. Non-pressured Attitude: cooperative Thought Process: Normal Thought Content: Denied suicidal ideation, homicidal ideation, auditory and visual hallucinations. Insight: Fair Judgment: Fair Exam Physical Exam Vital Signs: Temp Pulse Resp BP Pulse Ox O2 Del Method 98.2 F 76 16 135/85 97 Room Air 11/14/22 20:53 11/14/22 20:53 11/14/22 20:53 11/14/22 20:53 11/14/22 20:53 11/14/22 20:53 Assessment/Plan Assessment/Plan (1) Suicidal ideation: Code(s): R45.851 - Suicidal ideations Status: Acute (2) Depression: Code(s): F32.A - Depression, unspecified Status: Acute Plan Petros Regalado is a 22-year-old male with symptoms consistent with major depressive disorder and suicidal ideation. Continue Lexapro 5 mg daily. Continue to monitor mental status. Encourage group therapy. Documented By: Evens Brambila MD [id number] Signed By: <Electronically signed by Evens Brambila MD> 11/16/22 0850 [facility] Work Phone: History and physical note 11-15-2022 Note Date & Type Note Facility 11-15-2022 History and physi jolie note Note Date/Time November 14, 2022 12:32pm [facility] [address] [place] [address] Psychiatry H&P Signed Patient: Petros Regalado MR#: [id number] [id number] : 2000 Acct:[id number] Age/Sex: 22 / M Adm Date: 3 Loc: Room: [address] [place] [address] Type: ADM IN Attending Dr: Blanca Brambila MD Copies to: Evens Brambila MD NO FAMILY PHYSICIAN~ Date of Service: 11/14/2022 HPI History of Present Illness History of present illness: History of present illness: Mr. Regalado is a 22 year old male with no past psychiatric history presenting after his first suicide attempt last night. Patient reports that he walked into the [facility] and was waiting to see what happened . Patient reports he has been struggling with intermittent suicidal ideation for the past few years. Patient endorses symptoms of depression including sleep disturbances, anhedonia, lack of energy, inability to concentrate, changes in appetite, and suicidal ideation. Patient was personally seen by me on the day of the encounter. I reviewed the history and performed the chanel elements of the assessment. I formulated the planof care and confirmed this with the medical student as noted below Patient stated that he has been feeling suicidal and reported depressed. He lives with his grandma and her boyfriend, but reported that he does not feel connected with them. He is feeling much better in the unit today. Rated his current depression a 2/10 and anxiety at 2/10. He denied current suicidal ideation. He is tolerating his medications well. Patient is also currently transitioning from male to female. Past psych history: Denies Past hospitalizations: Denies past psychiatric hospitalizations Past suicide attempts: Denies Family psych history: Father with schizophrenia Previous medications: Denies Alcohol and drug use: Patient reports that he drinks occasionally and smokes marijuana occasionally Living situation: Lives with grandma and her boyfriend Employment: Works in [employer] Relationships: Reports his support system is his friend Pebbles Review of symptoms: Constitutional: Denies chills and Denies fever Eyes: Denies change in vision ENT: Denies abnormal hearing Cardiovascular: Denies chest pain Respiratory: Denies chest congestion and Denies cough Gastrointestinal: Denies change in bowel habits Genitourinary: Denies dysuria Musculoskeletal: Denies atrophy and Denies myalgias Integumentary/Breasts: Denies dry skin Neurologic: Denies abnormal gait and Denies abnormal movements Psychiatric: Denies suicidal ideation, homicidal ideation, auditory and visual hallucinations. Mental Status Exam: Appearance: grossly normal Mental Status: mental status grossly normal Mood: Stable mood Affect: Mood congruent affect Speech and Movement: speech and movement normal and speech clear Attitude: cooperative Thought Process: normal Thought Content: Denied hallucinations, denied homicidality, reported suicidality Insight: fair Judgment: fair Physical exam: General: cooperative, no acute distress Nutritional Appearance: average body habitus Skin: warm, dry, intact HEENT: Head normal to inspection, hearing grossly normal bilaterally, external nose normal, face symmetric Eyes: appearance normal, both eyes and all related structures, sclerae normal Neck: normal visual inspection and full ROM Resp: normal respiratory effort, able to speak in complete sentences and symmetric chest movement Cardio: regular rate GI: normal to inspection and non-distended : deferred Neuro: alert and oriented x3. Gait normal CNII: visual rsuso intact, PERRL CNIII, IV, : EOMI intact, no nystagmus CNV: Sensation intact to light touch CNVII: Raises eyebrows, smile/frown, puff out cheeks symmetrically CNIX, X: voice normal, soft palate elevation normal, symmetrical CNXI: Shoulder shrug full, symmetric CNXII: Tongue protrusion midline Extremities: normal to inspection and full ROM PMFSH Vaccinated for COVID-19?: No Medical History (Updated 11/14/22 @ 11:19 by Libertad Guo) ADHD (attention deficit hyperactivity disorder) Anxiety Autism Depression Surgical History (Updated 11/13/22 @ 17:52 by Татьяна Rubio RN) [place] teeth removed Social History Smoking Status: Light tobacco smoker Tobacco Type: e-cigarettes Substance Use Type: None Social History Comments: Lives with Grandma and her boyfriend. Meds Medications and Allergies Allergies No Known Allergies Allergy (Verified 11/13/22 17:55) Home Medications estradiol 2 mg tablet (Estrace) 2 mg PO BID 11/13/22 [History Confirmed 11/13/22] spironolactone 50 mg tablet (Aldactone) 50 mg PO BID 11/13/22 [History Confirmed 11/13/22] Exam Physical Exam Vital Signs: Temp Pulse Resp BP Pulse Ox O2 Del Method 97.5 F L 66 16 104/69 99 Room Air 11/14/22 07:30 11/14/22 07:30 11/14/22 07:30 11/14/22 07:30 11/14/22 07:30 11/14/22 07:30 Assessment/Plan (1) Suicidal ideation: Code(s): R45.851 - Suicidal ideations Status: Acute (2) Depression: Code(s): F32.A - Depression, unspecified Status: Acute Plan Petros Regalado is a 22-year-old male with symptoms consistent with major depressive disorder and suicidal ideation. Start Lexapro 5 mg p.o. daily Risks, benefits and indications of medications were discussed with the patient. The patient verbalized understanding. Monitor suicidal behaviors for safety of self (15-minute face check). Recommend attending groups and psychoeducation for building coping skills. No abnormal movements noted on exam. AIMS is Zero. Documented By: Evens Brambila MD [id number] Signed By: <Electronically signed by Evens Brambila MD> 11/15/22 0900 [facility] Work Phone: Evaluation note Note Date & Type Note Facility Evaluation note Diagnosis Onset Date Depression acute Suicidal ideation acute [facility] Work Phone: Evaluation note Note Date & Type Note Facility Evaluation note Diagnosis Bilateral impacted cerumen- Primary Impacted cerumen Tension headache Muscle pain, cervical Non-recurrent acute suppurative otitis media of both ears without spontaneous rupture of tympanic membranes documented in this encounter [facility] Discharge instructions Note Date & Type Note Facility Hospital Discharge instructions Additional Instructions Regular Diet No Activity Restrictions [facility] Work Phone: Chief Complaint and Reason for Visit Chief Complaint Major Depression Dis order Reason for Visit Depression Suicidal ideation Advance Directives Advance Directive Response Recorded Date/ Time Advance Directives No November 13, 2 023 2:25pm Summary Purpose Family History No Family History Records FoundNo Family History Records FoundNo Family History Records Found Additional Source Comments Care Teams (unrecognized sec tion and content) Team Status: Active Member Role Status Dates PHYSICIAN NO FAMILY Primary Care Provider Active Team Status: Inactive Member Role Status Dates PHYSICIAN NO FAMILY Primary Care Provider Active Blanca Brambila MD Admit Provider, Attending Pr ovider Active [employer] Relationship Specialty Start Date End Date Tevin Donald MD [address] [place] [phone] PCP - General Family Medicine 04/21/24 Bharti Barnett NP [address] [place] [phone] Nurse Practitioner Family Medicine 04/21/24 [employer] Relationship Specialty Start Date End Date Tevin Donald MD [address] [place] [phone] PCP - General Family Medicine 04/21/24 Bharti Barnett NP [address] [place] [address] Nurse Practitioner Family Medicine 04/21/24 (unrecognized sect ion and content) No Status Records FoundNo Status Records FoundNo Status Records Found INFORMATION SOURCE (unrecogn ized section and content) DATE CREATED AUTHOR 12/31/2022 [facility] DATE CREATED AUTHOR AUTHOR'S ORGANIZ ATION 11/10/2023 [facility] DATE CREATED AUTHOR AUTHOR'S ORGANIZ ATION 05/06/2024 [facility] Reason for Visit (unrecogniz ed section and content) Reason Comments Headache FOR RECORDS PERTAINING TO PATIENTS WHO ARE OR HAVE BEEN ENROLLED IN A CHEMICAL DEPENDENCY/SUBSTANCEABUSE PROGRAM, SOME INFORMATION MAY BE OMITTED. This clinical summary was aggregated from multiple sources. Caution should be exercised in using it in the provision of clinical care. This summary normalizes information from multiple sources, and as a consequence, information in this document may materially change the coding, format and clinical context of patient data. In addition, data may be omitted in some cases. CLINICAL DECISIONS SHOULD BE BASED ON THE PRIMARY CLINICAL RECORDS. [facility] [employer] provides no warranty or guarantee of the accuracy or completeness of information in this document.
--- NOTE | 2025-01-01 11:17 | ED.GENADUL1 ---
HPI HPI - General Adult General Chief complaint: Chest Pain Stated complaint: CHEST PAIN Time Seen by Provider: 01/01/25 11:16 Source: patient History of Present Illness HPI narrative: Patient is a 24-year-old male who is presenting to the ER today with chief complaint of lower midsternal and midepigastric pain this been going on for months. Patient states the pain will intermittently come and go. Patient will intermittently take Tums to help relieve his pain. Patient has not seen his PCP for this. Patient has a friend at bedside. The friend is the patient's best friend's mother who he lives with his best friend. Patient has no heavy lifting, twisting or turning. Patient has no recent traveling. He takes no blood thinners. 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 Patient was on hormone replacement therapy transferring in from a boy into a girl, the hormone therapy was abruptly stopped in April 2024 secondary to patient's insurance was not paying for it. In performing social history, patient smokes 1-1.5 packs of cigarettes a day, patient does no illicit drugs. 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 He lives at home with his best friend roommate. However, after speaking to patient at length for another 10 to 15 minutes, it is noted that patient drinks 4-5 shots of Wally Jurado and mixed double drinks after work nightly, and then on the weekends he will typically drink half a bottle of vodka. Patient is very smiling, giddy, laughing during this conversation. Patient's friend at bedside was shocked when hearing this information. Patient has been doing this for years. Patient says that he is admittable and agrees that he is most likely treating depression with alcohol. Patient has no history of seizure, no history of delirium tremors. Patient has no history of being in rehab. I started telling patient that he is alcoholic dependence, he is an alcoholic, and very thankful for him being so open and honest in discussing this to me and his friend at bedside, but patient needs alcohol rehabilitation. Patient also admits to drinking 8 to 12 20 ounce caffeine drinks a day. All systems are negative except as noted/marked. All systems reviewed and otherwise negative. Nurses note and vital signs reviewed and patient is not hypoxic. General: The patient appears well and in no apparent distress. Patient is resting comfortably on cart. Patient is not toxic, lethargic, or listless. Patient is unkempt, smells of body odor. Skin: Warm, dry, no pallor noted. There is no rash noted. No petechiae, purpura. Head: Normocephalic, atraumatic Eye: Normal conjunctiva, no drainage, EOMI. PERRL Ears, Nose, Mouth, and Throat: oral mucosa is moist. Nares patent. Mouth without vesicles. Cardiovascular: Regular Rate and Rhythm, no murmur, gallop, rub; no reproducible tenderness to palpation to mid sternum or over the xiphoid process. Respiratory: Patient is in no distress, no accessory muscle use, lungs are clear to auscultation, no wheezing, rales or rhonchi Back: non-tender, no CVA tenderness bilaterally to percussion. No CT LS midline pain GI: no tenderness to palpation, no masses appreciated. No rebound, guarding, or rigidity noted. No distention. Mild midepigastric tenderness palpation, Musculoskeletal: Patient has full range of motion of all of the extremities, no motor, sensory, or focal neurological deficits Neurological: A&O x4, normal speech Psychiatric: Cooperative Related Data Home Medications ?Medication ?Instructions ?Recorded ?Confirmed aripiprazole 5 mg tablet 5 mg PO DAILY 02/12/23 09/14/24 atenolol 50 mg tablet 50 mg PO Q12H 02/12/23 09/14/24 atomoxetine 100 mg capsule 100 mg PO DAILY 02/12/23 09/14/24 escitalopram oxalate 5 mg tablet 5 mg PO BID 02/12/23 09/14/24 estradiol 2 mg tablet 2 mg PO BID 02/12/23 09/14/24 methylphenidate HCl 20 mg tablet 20 mg PO BID 02/12/23 09/14/24 risperidone 4 mg tablet 4 mg PO DAILY 02/12/23 09/14/24 spironolactone 50 mg tablet 50 mg PO DAILY 02/12/23 09/14/24 Previous Rx's ?Medication ?Instructions ?Recorded zkshmjpbljvuzyk-wwwvjktsuadtbzg-DS 10 ml PO Q6H PRN cold symptoms 09/14/24 2 mg-30 mg-10 mg/5 mL oral syrup #200 mL (Bromfed DM) ondansetron 4 mg disintegrating 4 mg PO Q6H PRN nausea and 09/14/24 tablet vomiting #12 tabs Allergies Allergy/AdvReac Type Severity Reaction Status Date / Time No Known Drug Allergies Allergy Verified 09/14/24 14:36 Opioid HPI Opioid Management Most Recent Opioid Data: Last Pain Scale 6 Today, 11:05 Ur Phencyclidine Scrn, (NEGATIVE) Negative 02/12/23, 22:40 PFSH PFSH Social History Smoking status: Never smoker Little interest or pleasure in doing things: not at all Feeling down, depressed, or hopeless: not at all Exam Constitutional Vital Signs, click to edit/add: Last Vital Signs Temp 98.0 F 01/01/25 10:51 Pulse 74 01/01/25 10:51 Resp 18 01/01/25 10:51 BP 144/87 H 01/01/25 10:51 Pulse Ox 98 01/01/25 10:51 O2 Del Method Room Air 01/01/25 11:05 Course Vital Signs Vital signs: Vital Signs Temperature 98.0 F 01/01/25 10:51 Pulse Rate 74 01/01/25 10:51 Respiratory Rate 18 01/01/25 10:51 Blood Pressure 144/87 H 01/01/25 10:51 Pulse Oximetry 98 01/01/25 10:51 Oxygen Delivery Method Room Air 01/01/25 10:51 Temperature 98.0 F 01/01/25 10:51 Pulse Rate 74 01/01/25 10:51 Respiratory Rate 18 01/01/25 10:51 Blood Pressure 144/87 H 01/01/25 10:51 Pulse Oximetry 98 01/01/25 10:51 Oxygen Delivery Method Room Air 01/01/25 11:05 Medical Decision Making [facility] Narrative Medical decision making narrative: Patient seen and examined: Patient had cardiac evaluation. Differential diagnosis includes but is not limited to: Chest wall pain, costochondritis, ID, ACS, gastritis, alcohol dependence, electrolyte abnormality tobacco abuse, caffeine abuse, self treating depression Diagnostics and management: Patient will have laboratory studies Relevant laboratory interpretation: Potassium 3.4. AST 13, alk phos 119. Radiological studies: Please see the formal radiological report. Reevaluation: Shared decision making: I discussed with the patient the necessary laboratory findings and radiological findings. Social barriers to healthcare: There are no food insecurities, there is no issue with transportation, there are no insurance barriers. Disposition: I discussed with the patient his HPI, physical exam, but then spent 20 minutes at bedside speaking to the patient and his friend at bedside about alcohol dependence and concerns for his alcoholism. Patient was very pleasant, very thankful for time spent. Patient will follow-up with his PCP. Patient was given resources to [facility]. Patient is not suicidal homicidal. Patient is not intoxicated at this time. Patient was at work this morning. Shared decision making was done. Patient be discharged and resources were given to the patient. A lot of additional information on rehab and help with mental health were given to the patient from pressures and paperwork we provided Lab Data Labs: Lab Results 01/01/25 Range/Units 11:10 WBC 7.1 (4.0-11.0) 10^3/uL RBC 4.70 (4.70-6.10) 10^6/uL Hgb 14.7 (14.0-18.0) g/dL Hct 41.2 L (42.0-54.0) % MCV 87.7 (80.0-94.0) fL MCH 31.3 (25.9-34.0) pg MCHC 35.7 H (29.9-35.2) g/dL RDW 12.5 (11.0-15.0) % Plt Count 268 (150-450) 10^3/uL MPV 9.4 L (9.5-13.5) fL Neut % (Auto) 52.9 (43.0-75.0) % Lymph % (Auto) 36.0 (20.5-60.0) % [place] % (Auto) 7.7 (1.7-12.0) % Eos % (Auto) 2.5 (0.9-7.0) % Baso % (Auto) 0.6 (0.2-2.0) % Neut # (Auto) 3.8 (1.4-6.5) 10^3/uL Lymph # (Auto) 2.6 (1.2-3.8) 10^3/uL [place] # (Auto) 0.6 (0.3-0.8) 10^3/uL Eos # (Auto) 0.2 (0.0-0.7) 10^3/uL Baso # (Auto) 0.0 (0.0-0.1) 10^3/uL Abs Immat Gran (auto) 0.02 (0.00-0.03) 10^3/uL Imm/Tot Granulo (auto) 0.3 (0.0-0.5) % D-Dimer <0.19 (<=0.59) mg/L FEU Sodium 142 (136-145) mmol/L Potassium 3.4 L (3.5-5.1) mmol/L Chloride 105 (98-107) mmol/L Carbon Dioxide 28.4 (21.0-32.0) mmol/L Anion Gap 12.0 BUN 7.0 (7.0-18.0) mg/dL Creatinine 1.00 (0.70-1.30) mg/dL Est GFR ( Amer) >60 (>=60 mL/min/1.73m^2) Est GFR (Non-Af Amer) >60 (>=60 mL/min/1.73m^2) BUN/Creatinine Ratio 7.0 Glucose 88 (74-106) mg/dL Calcium 9.1 (8.5-10.1) mg/dL Total Bilirubin 0.7 (0.2-1.0) mg/dL AST 13 L (15-37) U/L ALT 34 (16-63) U/L Alkaline Phosphatase 119 H (46-116) U/L Troponin I High Sens 8.8 (4.0-76.1) pg/mL NT-Pro-B Natriuret Pep 27.0 (<=450.0) pg/mL Total Protein 7.3 (6.4-8.2) g/dL Albumin 4.2 (3.4-5.0) g/dL Globulin 3.1 g/dL Albumin/Globulin Ratio 1.4 ECG Data Attestation: I personally reviewed and interpreted this ECG as follows: (EKG interpretation. Normal sinus rhythm at 67 beats a minute. Normal axis deviation. No acute ST elevation, no acute ectopy. QTc of 413) Discharge Plan Discharge Chief Complaint: Chest Pain Clinical Impression: Midepigastric pain, Alcohol dependence, Chest pain, Hypokalemia Patient Disposition: Home, Self-Care Time of Disposition Decision: 12:11 Condition: Fair Prescriptions / Home Meds: No Action ouzxcexyuztqgse-izqvbaalg-EP [Bromfed DM] 2-30-10 mg/5 mL syrup 10 ml PO Q6H PRN (Reason: cold symptoms) Qty: 200 0RF ondansetron 4 mg tablet,disintegrating 4 mg PO Q6H PRN (Reason: nausea and vomiting) Qty: 12 0RF spironolactone 50 mg tablet 50 mg PO DAILY risperidone 4 mg tablet 4 mg PO DAILY methylphenidate HCl 20 mg tablet 20 mg PO BID estradiol 2 mg tablet 2 mg PO BID escitalopram oxalate 5 mg tablet 5 mg PO BID atomoxetine 100 mg capsule 100 mg PO DAILY aripiprazole 5 mg tablet 5 mg PO DAILY atenolol 50 mg tablet 50 mg PO Q12H Print Language: Lao Instructions: Chest Pain (ED), Hypokalemia (ED), GERD (Gastroesophageal Reflux Disease) (ED), Abdominal Pain (ED), Epigastric Pain (ED), Chest Wall Pain (ED), Alcohol Dependence (ED) Additional Instructions: Start taking npxb-bim-ikxgbva daily medication for acid reflux. Start Pepcid, Zantac, Prilosec, or any yyqf-ykh-tjspnwy medication. There is a huge concern for alcohol dependence and alcohol abuse disorder. There is a huge concern for your alcohol dependence, and strong recommendations to follow-up with your PCP and seek rehabilitation for alcoholism. You are self treating depression, anxiety and stress with alcohol. [facility] has been referred to. Limit caffeine use and alcohol use. Please return back to the ER for any other acute concerns, we are always here to help you Referrals: [facility] [Other] - 1 week [facility] [Physician, Behavioral Health] - 1 week Belem Cerda NP [Primary Care Provider, Family Practice] - 1 week Discharge Date/Time: 01/01/25 12:27
[2025-01-01 11:31] LABS: Basophils Percent Auto 0.6 % (0.2-2.0); Eosinophils Absolute Auto 0.2 10^3/uL (0.0-0.7); Eosinophils Percent Auto 2.5 % (0.9-7.0); Hematocrit 41.2 % (42.0-54.0); Hemoglobin 14.7 g/dL (14.0-18.0); Immature Granulocytes Abs Auto 0.02 10^3/uL (0.00-0.03); Immature Granulocytes Pct Auto 0.3 % (0.0-0.5); Lymphocytes Absolute Auto 2.6 10^3/uL (1.2-3.8); Mean Corpuscular HGB Conc 35.7 g/dL (29.9-35.2); Mean Corpuscular Hemoglobin 31.3 pg (25.9-34.0); Mean Corpuscular Volume 87.7 fL (80.0-94.0); Mean Platelet Volume 9.4 fL (9.5-13.5); Monocytes Absolute Auto 0.6 10^3/uL (0.3-0.8); Monocytes Percent Auto 7.7 % (1.7-12.0); Neutrophils Absolute Auto 3.8 10^3/uL (1.4-6.5); Neutrophils Percent Auto 52.9 % (43.0-75.0); Platelet Count 268 10^3/uL (150-450); Red Cell Distribution Width 12.5 % (11.0-15.0); White Blood Count 7.1 10^3/uL (4.0-11.0)
[2025-01-01] MEDS: ASPIRIN 81 MG TAB.CHEW 162 MG PO (11:37)
[2025-01-01 11:49] LABS: Alanine Aminotransferase 34 U/L (16-63); Albumin Globulin Ratio 1.4; Albumin Level 4.2 g/dL (3.4-5.0); Alkaline Phosphatase 119 U/L (46-116); Aspartate Amino Transferase 13 U/L (15-37); Bilirubin Total 0.7 mg/dL (0.2-1.0); Calcium 9.1 mg/dL (8.5-10.1); Carbon Dioxide 28.4 mmol/L (21.0-32.0); Chloride 105 mmol/L (98-107); Estimated GFR (African America >60 (>=60 mL/min/1.73m^2); Estimated GFR (Non-African Ame >60 (>=60 mL/min/1.73m^2); Globulin 3.1 g/dL; Glucose 88 mg/dL (74-106); Potassium 3.4 mmol/L (3.5-5.1); Sodium 142 mmol/L (136-145); Total Protein 7.3 g/dL (6.4-8.2); Troponin I High Sensitivity 8.8 pg/mL (4.0-76.1)
[2025-01-01 11:55] LABS: D Dimer <0.19 mg/L FEU (<=0.59)
[2025-01-01] MEDS: POTASSIUM BICARBONATE/CIT 25 MEQ TABLET EFF 50 MEQ PO (12:25)
== END 2025-01-01 12:27 | disposition home or self-care (01) ==
PROVIDERS: Emergency Provider Emergency Medicine; PCP Nurse Practitioner
DX: R07.9 Chest pain, unspecified (principal); R10.13 Epigastric pain; F10.20 Alcohol dependence, uncomplicated; E87.6 Hypokalemia; F17.210 Nicotine dependence, cigarettes, uncomplicated
CPT/HCPCS: 36415; 71046; 80053; 83880; 84484; 85025; 85378; 93005; 99285

== ENCOUNTER 2025-01-20 08:53 | Emergency (ER) | payer OTHER, SELFPAY ==
[2025-01-20] VITALS (18 sets, daily range): BP systolic 117–143; BP diastolic 69–95; PULSE 50–69; TEMP 36.8; O2SAT 99–100; BMI 28.3
--- NOTE | 2025-01-20 09:05 | XR_ITS ---
The [place] [id number] Patient Name: JORGE LUIS JERNIGAN MRN: [id number] date: 2000 Sex: M Assigned Patient Location: ER Current Patient Location: ER Accession/Order Number: [id number] Exam Date: 01/20/2025 09:37 Report Date: 01/20/2025 09:38 At the request of: NJ WILDER MD Procedure: XR chest 1V PORTABLE AP ERECT CHEST 0927 hours CLINICAL HISTORY: Overdose COMPARISON: 01/01/2025 The heart is within normal limits. There is no vascular congestion. No consolidation is noted. There is no effusion or pneumothorax. The osseous structures are intact. XR/XR chest 1V IMPRESSION: NO ACUTE FINDINGS Impression dictated by: Kamala Frances M.D. 01/20/2025 9:38 AM Dictation Location: [place] [address] Electronically authenticated by: [id number] Y Date: 01/20/2025 09:38
--- NOTE | 2025-01-20 09:05 | ECG_ITS ---
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 Measurements Intervals [place]ks Rate: 51 P: 0 NE: 240 QRS: 29 QRSD: 100 T: 55 QT: 444 QTc: 420 Interpretive Statements 1100 Sinus rhythm 1102 Sinus arrhythmia 2231 First degree AV block 2440 Incomplete right bundle branch block 9150 abnormal ECG Compared to ECG 01/01/2025 10:57:32 First degree AV block now present ST (T wave) deviation no longer present Electronically Signed On 01-20-2025 19:11:20 EDT by NIURKA ABRAHAM M.D.
--- NOTE | 2025-01-20 09:06 | ED.GENADUL1 ---
HPI HPI - General Adult General Chief complaint: Overdose Stated complaint: WEAKNESS Time Seen by Provider: 01/20/25 08:56 Source: patient and medical record Mode of arrival: ambulance Limitations: altered mental status Limitations comment: extreme fatigue/weakness History of Present Illness HPI narrative: 24-year-old male presents to the emergency department for being weak. Somebody called the paramedics who brought him here. As they were pulling into the hospital he told the paramedics that he took Zanaflex, and he tells me he took it at 5:00 this morning. He tells me that he took 40 4 mg tablets at 5 AM, 4 hours prior to arrival. He states he was taking it just to go to sleep and that he was not trying to hurt himself. According to his electronic health record he has a history of daily alcohol use but he tells me he has not had any alcohol to drink for 3 days because its gotten too expensive. Related Data Home Medications ?Medication ?Instructions ?Recorded ?Confirmed aripiprazole 5 mg tablet 5 mg PO DAILY 02/12/23 09/14/24 atenolol 50 mg tablet 50 mg PO Q12H 02/12/23 09/14/24 atomoxetine 100 mg capsule 100 mg PO DAILY 02/12/23 09/14/24 escitalopram oxalate 5 mg tablet 5 mg PO BID 02/12/23 09/14/24 estradiol 2 mg tablet 2 mg PO BID 02/12/23 09/14/24 methylphenidate HCl 20 mg tablet 20 mg PO BID 02/12/23 09/14/24 risperidone 4 mg tablet 4 mg PO DAILY 02/12/23 09/14/24 spironolactone 50 mg tablet 50 mg PO DAILY 02/12/23 09/14/24 Previous Rx's ?Medication ?Instructions ?Recorded ondansetron 4 mg disintegrating 4 mg PO Q6H PRN nausea and 09/14/24 tablet vomiting #12 tabs Allergies Allergy/AdvReac Type Severity Reaction Status Date / Time No Known Drug Allergies Allergy Verified 01/20/25 08:55 Opioid HPI Opioid Management Most Recent Opioid Data: Last Pain Scale 6 01/01/25, 11:05 Ur Phencyclidine Scrn, (NEGATIVE) Negative Today, 09:24 Review of Systems ROS Narrative A ten point review of systems is negative except as noted above. PFSH PFSH Social History Smoking status: Never smoker Little interest or pleasure in doing things: several days Feeling down, depressed, or hopeless: not at all Exam Narrative Exam Narrative: Nurses note and vital signs reviewed and patient is not hypoxic. General: The patient appears drowsy and in no acute respiratory distress. Skin: Warm, dry, no pallor noted. There is no rash noted. Head: Normocephalic, atraumatic Eye: Normal conjunctiva, no drainage, EOMI. PERRL Ears, Nose, Mouth, and Throat: oral mucosa is somewhat dry. Nares patent. Cardiovascular: Regular Rate and Rhythm, mildly bradycardic Respiratory: Patient is in no distress, no accessory muscle use, lungs are clear to auscultation, no wheezing, rales or rhonchi Back: non-tender GI: Soft and nontender Musculoskeletal: The patient has no evidence of calf tenderness, no pitting edema, symmetrical pulses noted bilaterally Neurological: He is drowsy but awake and looks around the room. He is fully oriented and follows all commands appropriately. Psychiatric: Cooperative Constitutional Vital Signs, click to edit/add: Last Vital Signs Temp 98.2 F 01/20/25 09:09 Pulse 59 L 01/20/25 09:30 Resp 14 01/20/25 09:30 BP 134/89 01/20/25 09:20 Pulse Ox 100 01/20/25 09:30 O2 Del Method Room Air 01/20/25 09:08 Course Vital Signs Vital signs: Vital Signs Pulse Rate 53 L 01/20/25 08:55 Respiratory Rate 16 01/20/25 08:55 Blood Pressure 143/95 H 01/20/25 08:55 Pulse Oximetry 99 01/20/25 08:55 Oxygen Delivery Method Room Air 01/20/25 08:55 Temperature 98.2 F 01/20/25 09:09 Pulse Rate 59 L 01/20/25 09:30 Respiratory Rate 14 01/20/25 09:30 Blood Pressure 134/89 01/20/25 09:20 Pulse Oximetry 100 01/20/25 09:30 Oxygen Delivery Method Room Air 01/20/25 09:08 Medical Decision Making MDM Narrative Medical decision making narrative: The patient insists that he took 44 mg Zanaflex tablets 4 hours prior to arrival. He has been drowsy her but easily awakes and has been talking on the phone. He has not been hypotensive. His juncturae is negative and alcohol level is not measurable. I have spoken to Dr. Hale at [facility] who accepts the patient in transfer. The patient is stable and agreeable for transfer. He will need prolonged monitoring for this issue. Differential Diagnosis Differential Diagnosis: Overdose, suicidal ideation Lab Data Lab results reviewed: Yes I reviewed the patient's lab results Labs: Lab Results 01/20/25 01/20/25 Range/Units 09:00 09:24 WBC 10.1 (4.0-11.0) 10^3/uL RBC 5.23 (4.70-6.10) 10^6/uL Hgb 16.6 (14.0-18.0) g/dL Hct 44.9 (42.0-54.0) % MCV 85.9 (80.0-94.0) fL MCH 31.7 (25.9-34.0) pg MCHC 37.0 H (29.9-35.2) g/dL RDW 12.0 (11.0-15.0) % Plt Count 298 (150-450) 10^3/uL MPV 9.7 (9.5-13.5) fL Neut % (Auto) 67.2 (43.0-75.0) % Lymph % (Auto) 23.4 (20.5-60.0) % [place] % (Auto) 6.9 (1.7-12.0) % Eos % (Auto) 1.7 (0.9-7.0) % Baso % (Auto) 0.5 (0.2-2.0) % Neut # (Auto) 6.8 H (1.4-6.5) 10^3/uL Lymph # (Auto) 2.4 (1.2-3.8) 10^3/uL [place] # (Auto) 0.7 (0.3-0.8) 10^3/uL Eos # (Auto) 0.2 (0.0-0.7) 10^3/uL Baso # (Auto) 0.1 (0.0-0.1) 10^3/uL Abs Immat Gran (auto) 0.03 (0.00-0.03) 10^3/uL Imm/Tot Granulo (auto) 0.3 (0.0-0.5) % Sodium 139 (136-145) mmol/L Potassium 3.8 (3.5-5.1) mmol/L Chloride 101 (98-107) mmol/L Carbon Dioxide 25.3 (21.0-32.0) mmol/L Anion Gap 16.5 BUN 9.0 (7.0-18.0) mg/dL Creatinine 0.90 (0.70-1.30) mg/dL Est GFR ( Amer) >60 (>=60 mL/min/1.73m^2) Est GFR (Non-Af Amer) >60 (>=60 mL/min/1.73m^2) BUN/Creatinine Ratio 10.0 Glucose 149 H (74-106) mg/dL Calcium 9.8 (8.5-10.1) mg/dL Total Bilirubin 1.1 H (0.2-1.0) mg/dL Direct Bilirubin 0.2 (0.0-0.2) mg/dL AST 13 L (15-37) U/L ALT 26 (16-63) U/L Alkaline Phosphatase 123 H (46-116) U/L Total Protein 7.7 (6.4-8.2) g/dL Albumin 4.2 (3.4-5.0) g/dL Globulin 3.5 g/dL Albumin/Globulin Ratio 1.2 Urine Color Yellow (YELLOW) Urine Clarity Clear (CLEAR) Urine pH 6.0 (5.0-9.0) Ur Specific [place] 1.020 (1.005-1.025) Urine Protein Negative (NEG/TRACE) mg/dL Urine Glucose (UA) Negative (NEGATIVE) mg/dL Urine Ketones Negative (NEGATIVE) mg/dL Urine Occult Blood Negative (NEGATIVE) Urine Nitrite Negative (NEGATIVE) Urine Bilirubin Negative (NEGATIVE) Urine Urobilinogen 2.0 A (0.2-1.0) EU/dL Ur Leukocyte Esterase Negative (NEGATIVE) Urine RBC 2-5 A (0-2) #/HPF Urine WBC 5-10 A (NONE SEEN) #/HPF Ur Squamous Epith Cells Moderate A (NONE/RARE) #/LPF Ur Transition Epith Cell Few A (NONE SEEN) #/LPF Urine Crystals None seen (None Seen) #/HPF Urine Bacteria Trace A (NONE SEEN) #/HPF Urine Casts None seen (NONE SEEN) #/LPF Urine Mucus None seen (NONE SEEN) Ur Culture Indicated? Yes-[facility] [place] Salicylates <2.8 (<=19.9) mg/dL Urine Opiates Screen Negative (NEGATIVE) Ur Buprenorphine Scrn Negative (NEGATIVE) Ur Oxycodone Screen Negative (NEGATIVE) Urine Methadone Screen Negative (NEGATIVE) Acetaminophen <2.0 L (10.0-30.0) ug/mL Ur Barbiturates Screen Negative (NEGATIVE) U Tricyclic Antidepress Negative (NEGATIVE) Ur Phencyclidine Scrn Negative (NEGATIVE) Ur Amphetamines Screen Negative (NEGATIVE) U Methamphetamines Scrn Negative (NEGATIVE) U Benzodiazepines Scrn Negative (NEGATIVE) Urine Cocaine Screen Negative (NEGATIVE) U Cannabinoids Screen Negative (NEGATIVE) Ethanol Quant <3 mg/dL Imaging Data Chest x-ray: Radiologist's impression: ITS Impressions Chest X-Ray 01/20/25 09:05 IMPRESSION: NO ACUTE FINDINGS Impression dictated by: Kamala Frnaces M.D. 01/20/2025 9:38 AM Dictation Location: [place] [address] Electronically authenticated by: [id number] Y Date: 01/20/2025 09:38 ECG Data Attestation: I personally reviewed and interpreted this ECG as follows: (EKG on my interpretation shows sinus rhythm with first-degree block and a rate of 51) Discharge Plan Discharge Chief Complaint: Overdose Clinical Impression: Drug overdose Patient Disposition: General Acute Hospital Time of Disposition Decision: 10:11 Discharge Location: [facility] Condition: Fair Mode of Transportation: EMS
[2025-01-20] MEDS: 0.9 % SODIUM CHLORIDE 1,000 ML 1000 ML IV (09:14)
[2025-01-20 09:17] LABS: Basophils Absolute Auto 0.1 10^3/uL (0.0-0.1); Basophils Percent Auto 0.5 % (0.2-2.0); Eosinophils Absolute Auto 0.2 10^3/uL (0.0-0.7); Eosinophils Percent Auto 1.7 % (0.9-7.0); Hematocrit 44.9 % (42.0-54.0); Hemoglobin 16.6 g/dL (14.0-18.0); Immature Granulocytes Abs Auto 0.03 10^3/uL (0.00-0.03); Immature Granulocytes Pct Auto 0.3 % (0.0-0.5); Lymphocytes Absolute Auto 2.4 10^3/uL (1.2-3.8); Lymphocytes Percent Auto 23.4 % (20.5-60.0); Mean Corpuscular Hemoglobin 31.7 pg (25.9-34.0); Mean Corpuscular Volume 85.9 fL (80.0-94.0); Mean Platelet Volume 9.7 fL (9.5-13.5); Monocytes Absolute Auto 0.7 10^3/uL (0.3-0.8); Monocytes Percent Auto 6.9 % (1.7-12.0); Neutrophils Absolute Auto 6.8 10^3/uL (1.4-6.5); Neutrophils Percent Auto 67.2 % (43.0-75.0); Platelet Count 298 10^3/uL (150-450); Red Blood Count 5.23 10^6/uL (4.70-6.10); White Blood Count 10.1 10^3/uL (4.0-11.0)
--- OUTSIDE RECORDS SUMMARY | 2025-01-20 09:18 | XMS_ITS | CCD ---
Author Organization [facility] Care Team Providers Care Data Operations Leader Name Role Phone NO FAMILY, PHYSICIAN Primary Care Provider MD Blanca Bardales Admit Provider MD Blanca Brambila Attending Provider MARKERKEVIN Admitting Unavailable MARKER, KEVIN Attending Unavailable SHRAVAN ., BASSEM HART Consulting Unavailabl e TAN, FAJARDO H Primary Care Unavailable JUAN, KEVIN Consulting Unavailable SHAE BOYLE Consulting Unavailable NAWAF GREENBERG Consulting Unavailable BONNIE, DR LULÚ Rose Admitting Unavailabl e BONNEI, DR LULÚ Rose Attending Unavailabl e TAN, FAJARDO H Primary Care Unavailable BONNIE, DR LULÚ Rose Consulting UnavailJULIO Choudhury Admitting Unavailable ATN, FAJARDO H Primary Care Unavailable JULIO WERNER [...] Attending Tevin Hutson MD Primary Care Provider [phone] Ericka VICE PRESIDENT OF BRAND MANAGEMENTBharti Unavailable Medications Current Medications Medication Drug Class(es) Dates [...] Onset: 11-13-2022 Other aftercare (1 source) 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; 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: [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 DRUG THERAPY] Onset: 11-14-2022 Episodic Other [...] on 11-14-2022 Cholesterol [Mass/Vol] 139 mg/dL 140-200 [facility] Comment on above: Chol less than 200 m g/dl low riskChol 201-239 mg/dl borderline riskChol 240 mg/dl and greater high risk Cholesterol in LDL Calc [Mas s/Vol]Ordered By: Evens Brambila on 11-14-2022 Cholesterol in LDL [Mass/Vol] 79 mg/dL 0-100 [facility] Comment on above: LDL ATP III CLASSIFI CATIONLDL less than 100 mg/dL OptimalLDL 100-129 mg/dL Near or above optimalLDL 130-159 mg/dL Borderline highLDL 160-189 mg/dL HighLDL greater than 189 mg/dL Very high Cholesterol in VLDL Calc [Ma ss/Vol]Ordered By: Evens Brambila on 11-14-2022 Cholesterol in VLDL [Mass/Vol] 19 mg/dL [facility] Lipid Panelon 11-14-2022 Cholesterol [Mass/Vol] 139 mg/dL Low 140-200 [facility] Comment on above: Result Comment: Chol less than 200 mg/dl low risk Chol 201-239 mg/dl borderline risk Chol 240 mg/dl and greater high risk Performed By: #### V [id number], LIPID, TSH3 wRFLX #### [facility] [address] Cholesterol in HDL [Mass/Vol] 40 mg/dL Normal 29-71 [facility] Comment on above: Result Comment: HDL CHOL ATP-III CLASSIFICATION Cardiovascular Risk HDL > or equal to 60 mg/dL LOW HDL < 40 mg/dL HIGH Performed By: #### V [id number], LIPID, TSH3 wRFLX #### [facility] [address] Cholesterol.total/Chol esterol in HDL [Mass ratio] 3.5 {ratio} Normal <5.0 [facility] Comment on above: Performed By: #### V [id number], LIPID, TSH3 wRFLX #### [address] LDL Cholesterol,Calculated 79 mg/dL Normal 0-100 [facility] Comment on above: Result Comment: LDL ATP III CLASSIFICATION LDL less than 100 mg/dL Optimal LDL 100-129 mg/dL Near or above optimal LDL 130-159 mg/dL Borderline high LDL 160-189 mg/dL High LDL greater than 189 mg/dL Very high Performed By: #### V [id number], LIPID, TSH3 wRFLX #### [address] Triglyceride w/Reflex 98 mg/dL Normal 0-149 [facility] Comment on above: Result Comment: TRIG ATP III CLASSIFICATION TRIG less than 150 mg/dL Normal TRIG 150-199 mg/dL Borderline high TRIG 200-500 mg/dL High TRIG greater than 500 mg/dL Very high Standard traceable to the Center for Disease Conrtrol and Prevention (CDC) test method. Performed By: #### V [id number], LIPID, TSH3 wRFLX #### [facility] [address] VLDL CHOLESTEROL 19 mg/dL Normal [facility] Comment on above: Performed By: #### V [id number], LIPID, TSH3 wRFLX #### [facility] [address] Serum or plasma high density lipoprotein (HDL) cholesterol measurementOrdered By: Evens Brambila on 11-14-2022 Cholesterol in HDL [Mass/Vol] 40 mg/dL [facility] Comment on above: HDL CHOL ATP-III CLA SSIFICATION Cardiovascular RiskHDL > or equal to 60 mg/dL LOWHDL < 40 mg/dL HIGH Serum or plasma total choles terol/high density lipoprotein (HDL) cholesterol mass ratOrdered By: Evens Brambila on 11-14-2022 Cholesterol.total/Chol esterol in HDL [Mass ratio] 3.5 {ratio} <5.0 [facility] Thyroid Stim Hormone w/Rflxo n 11-14-2022 Thyroid Stim Hormone w/Rflx 0.88 u[iU]/mL Normal 0.45-5.33 [facility] Comment on above: Performed By: #### V [id number], LIPID, TSH3 wRFLX #### [facility] [id number] [facility] Thyrotropin [Units/volume] i n Serum or PlasmaOrdered By: Evens Brambila on 11-14-2022 TSH Qn 0.88 m[IU]/L 0.45-5.33 [facility] Triglyceride [Mass/volume] i n Serum or PlasmaOrdered By: Evens Brambila on 11-14-2022 Triglyceride [Mass/Vol] 98 mg/dL 0-149 [facility] Comment on above: TRIG ATP III CLASSIF ICATIONTRIG less than 150 mg/dL NormalTRIG 150-199 mg/dL Borderline highTRIG 200-500 mg/dL High TRIG greater than 500 mg/dL Very highStandard traceable to the Center for Disease Conrtrol and Prevention (CDC) test method. Vitamin D 25 Hydroxy Totalon 11-14-2022 Vitamin D 25 Hydroxy Total 14.0 ng/mL Low 30-100 [facility] Comment on above: Result Comment: NIKOLAS MIN D STATUS 25(OH)VITAMIN D RANGE (ng/mL) Deficient <20 Insufficient 20 to <30 Sufficient 30 to 100 Reference: Leo Harris, Don MOYA, et al. Evaluation,treatment, and prevention of vitamin D deficiency; an Endocrine Society clinical practice guideline. JCEM. 2010; 96(7):191-. PERFORMED BY: [facility] [address] [place] [address] PATHOLOGIST CABINET MAKER JOVANY LEA M.D. Performed By: #### V [id number], LIPID, TSH3 wRFLX #### [facility] [address] Vitamin D+Metabolites [Mass/ volume] in Serum or PlasmaOrdered By: Evens Brambila on 11-14-2022 Vitamin D+Metabolites [Mass/Vol] 14.0 ng/mL 30-100 [facility] Comment on above: VITAMIN D STATUS 25( OH)VITAMIN D RANGE (ng/mL) Deficient <20 Insufficient 20 to <30Sufficient 30 to 100Reference: Leo Harris, Don MOYA, et al. Evaluation,treatment, and prevention of vitamin D deficiency; an Endocrine Society clinical practice guideline. JCEM. 2010; 96(7):1911-30. ACETAMINOPHENon 11-13-2022 Acetaminophen [Mass/Vol] ug/mL Critically low 10.0-30.[address] [facility] Comment on above: Performed By: #### A CET #### [facility] [address] [address] [address] Zana Davenport Acetaminophen [Mass/Vol] ug/mL Critically low 10.0-30.0 [facility] Comment on above: Result Comment: Prev iously reported as: 30.6 On 11/13/2022 10:40 By [email or web address] Performed By: #### C MPLANI, ACET #### [facility] [address] [address] [address] Zana Davenport CBC AUTO DIFFon 11-13-2022 BASO # 0.0 103/ul Normal 0.0-0.[address] [facility] Comment on above: Performed By: #### E TH, ACET, SALYC, CMP #### [facility] [address] [place] [address] Dr. Zana Davenport Basophils/100 WBC (Bld) 0.3 % Normal 0.2-2.[address] [facility] Comment on above: Performed By: #### E TH, ACET, SALYC, CMP #### [facility] [address] [place] [address] Dr. Zana Davenport EO # 0.1 103/ul Normal 0.0-0.7 [facility] Comment on above: Performed By: #### E TH, ACET, SALYC, CMP #### [facility] [address] [place] [address] Dr. Zana Davenport Eosinophils/100 WBC (Bld) 0.7 % Critically low 0.9-7.[address] [facility] Comment on above: Performed By: #### E TH, ACET, SALYC, CMP #### [facility] [address] [place] [address] Dr. Zana Davenport Erythrocyte distribution width (RBC) [Ratio] 12.8 % Normal 11.0-15.[address] [facility] Comment on above: Performed By: #### E TH, ACET, SALYC, CMP #### [facility] [address] [place] [address] Dr. Zana Davenport Hematocrit (Bld) [Volume fraction] 44.8 % Normal 42.0-54.[address] [facility] Comment on above: Performed By: #### E TH, ACET, SALYC, CMP #### [facility] [address] [place] [address] Dr. Zana Davenport Hemoglobin (Bld) [Mass/Vol] 15.9 g/dL Normal 14.0-18.0 [facility] Comment on above: Performed By: #### E TH, ACET, SALYC, CMP #### [facility] [address] [place] [address] Dr. Zana Davenport IG # 0.05 10e3/ul Critically high 0.00-0.03 [facility] Comment on above: Performed By: #### E TH, ACET, SALYC, CMP #### [facility] [address] [place] [address] Dr. Zana Davenport IG % 0.4 % Normal 0.0-0.[address] [facility] Comment on above: Performed By: #### E TH, ACET, SALYC, CMP #### [facility] [address] [place] [address] Dr. Zana Davenport LYMPH # 1.4 103/ul Normal 1.2-3.8 [facility] Comment on above: Performed By: #### E TH, ACET, SALYC, CMP #### [facility] [address] [place] [address] Dr. Zana Davenport Lymphocytes/100 WBC (Bld) 11.6 % Critically low 20.5-60.[address] [facility] Comment on above: Performed By: #### E TH, ACET, SALYC, CMP #### [facility] [address] [place] [address] Dr. Zana Davenport MANUAL DIFF REQ NO Normal [facility] Comment on above: Performed By: #### E TH, ACET, SALYC, CMP #### [facility] [address] [place] [address] Dr. Zana Davenport MCH (RBC) [Entitic mass] 30.4 pg Normal 25.9-34.[address] [facility] Comment on above: Performed By: #### E TH, ACET, SALYC, CMP #### [facility] [address] [place] [address] Dr. Zana Davenport MCHC (RBC) [Mass/Vol] 35.5 g/dL Critically high 29.9-35.2 [facility] Comment on above: Performed By: #### E TH, ACET, SALYC, CMP #### [facility] [address] [place] [address] Dr. Zana Davenport MCV (RBC) [Entitic vol] 85.7 fL Normal 80.0-94.[address] [facility] Comment on above: Performed By: #### E TH, ACET, SALYC, CMP #### [facility] [address] [place] [address] Dr. Zana Davenport MONO # 0.6 103/ul Normal 0.3-0.8 [facility] Comment on above: Performed By: #### E TH, ACET, SALYC, CMP #### [facility] [address] [place] [address] Dr. Zana Davenport Monocytes/100 WBC (Bld) 5.3 % Normal 1.7-12.0 [facility] Comment on above: Performed By: #### E TH, ACET, SALYC, CMP #### [facility] [address] [place] [address] Dr. Zana Davenport NEUT # 9.6 103/ul Critically high 1.4-6.5 [facility] Comment on above: Performed By: #### E TH, ACET, SALYC, CMP #### [facility] [address] [place] [address] Dr. Zana Davenport Neutrophils/100 WBC (Bld) 81.7 % Critically high 43.0-75.0 [facility] Comment on above: Performed By: #### E TH, ACET, SALYC, CMP #### [facility] [address] [place] [address] Dr. Zana Davenport Platelet mean volume (Bld) [Entitic vol] 9.6 fL Normal 9.5-13.5 [facility] Comment on above: Performed By: #### E TH, ACET, SALYC, CMP #### [facility] [address] [place] [address] Dr. Zana Davenport PLT 302 103/ul Normal 150-450 [facility] Comment on above: Performed By: #### E TH, ACET, SALYC, CMP #### [facility] [address] [place] [address] Dr. Zana Davenport RBC 5.23 106/ul Normal 4.70-6.10 [facility] Comment on above: Performed By: #### E TH, ACET, SALYC, CMP #### [facility] [address] [place] [address] Dr. Zana Davenport WBC 11.7 103/ul Critically high 4.0-11.0 [facility] Comment on above: Performed By: #### E TH, ACET, SALYC, CMP #### [facility] [address] [address] [address] Zana Davenport DRUG SCREEN RAPID (URINE)on 11-13-2022 AMP Negative Normal NEGATIVE [facility] Comment on above: Performed By: #### E TH, ACET, SALYC, CMP #### [facility] [address] [place] [address] Dr. Zana Davenport BAR Negative Normal NEGATIVE [facility] Comment on above: Performed By: #### E TH, ACET, SALYC, CMP #### [facility] [address] [address] [address] Zana Davenport BUP Negative Normal NEGATIVE [facility] Comment on above: Performed By: #### E TH, ACET, SALYC, CMP #### [facility] [address] [place] [address] Dr. Zana Davenport BZO Negative Normal NEGATIVE [facility] Comment on above: Performed By: #### E TH, ACET, SALYC, CMP #### [facility] [address] [place] [address] Dr. Zana Davenport MADELEINE Negative Normal NEGATIVE [facility] Comment on above: Performed By: #### E TH, ACET, SALYC, CMP #### [facility] [address] [place] [address] Dr. Zana Davenport CUT-OFFS SEE BELOW Normal [facility] Comment on above: Result Comment: AMP (Amphetamine): [...] #### E TH, ACET, SALYC, CMP #### [facility] [address] [place] [address] Dr. Zana Davenport DRUG CUT HEADER DRUG CLASS TEST SYST EM CUT-OFF CONCENTRATIONS ARE FOLLOWS: Normal [facility] Comment on above: Performed By: #### E TH, ACET, SALYC, CMP #### [facility] [address] [address] [address] Zana Davenoprt mAMP Negative Normal NEGATIVE [facility] Comment on above: Performed By: #### E TH, ACET, SALYC, CMP #### [facility] [address] [place] [address] Dr. Zana Davenport MTD Negative Normal NEGATIVE [facility] Comment on above: Performed By: #### E TH, ACET, SALYC, CMP #### [facility] [address] [place] [address] Dr. Zana Davenport OPI Negative Normal NEGATIVE [facility] Comment on above: Performed By: #### E TH, ACET, SALYC, CMP #### [facility] [address] [place] [address] Dr. Zana Davenport OXY Negative Normal NEGATIVE [facility] Comment on above: Performed By: #### E TH, ACET, SALYC, CMP #### [facility] [address] [place] [address] Dr. Zana Davenport PCP Negative Normal NEGATIVE [facility] Comment on above: Performed By: #### E TH, ACET, SALYC, CMP #### [facility] [address] [place] [address] Dr. Zana Davenport PPX Negative Normal NEGATIVE [facility] Comment on above: Performed By: #### E TH, ACET, SALYC, CMP #### [facility] [address] [place] [address] Dr. Zana Davenport TCA Negative Normal NEGATIVE [facility] Comment on above: Performed By: #### E TH, ACET, SALYC, CMP #### [facility] [address] [place] [address] Dr. Zana Davenport THC Negative Normal NEGATIVE [facility] Comment on above: Performed By: #### E TH, ACET, SALYC, CMP #### [facility] [address] [address] [address] Zana Davenport ER URINE PROFILEon 3 Bilirubin Ql (U) Negative Normal NEGATIVE [facility] Comment on above: Performed By: #### E TH, ACET, SALYC, CMP #### [facility] [address] [address] [address] Zana Davenport Clarity (U) CLEAR Normal CLEAR [facility] Comment on above: Performed By: #### E TH, ACET, SALYC, CMP #### [facility] [address] [address] [address] Zana Davenport Color (U) LT. YELLOW Normal YELLOW [facility] Comment on above: Performed By: #### E TH, ACET, SALYC, CMP #### [facility] [address] [place] [address] Dr. Zana BARNEY A micrscopic examination will be performed if indicated. Normal [facility] Comment on above: Performed By: #### E TH, ACET, SALYC, CMP #### [facility] [address] [address] [address] Zana Davenport Glucose Ql (U) Negative Normal NEGATIVE [facility] Comment on above: Performed By: #### E , ACET, SALYC, CMP #### [facility] [address] [place] [address] Dr. Zana Davenport Hemoglobin Ql (U) Negative Normal NEGATIVE [facility] Comment on above: Performed By: #### E , ACET, SALYC, CMP #### [facility] [address] [address] [address] Zana Davenport Ketones Ql (U) Negative Normal NEGATIVE [facility] Comment on above: Performed By: #### E TH, ACET, SALYC, CMP #### [facility] [address] [place] [address] Dr. Zana Davenport LEUKOCYTES Negative Normal NEGATIVE [facility] Comment on above: Performed By: #### E TH, ACET, SALYC, CMP #### [facility] [address] [place] [address] Dr. Zana Davenport Nitrite Ql (U) Negative Normal NEGATIVE [facility] Comment on above: Performed By: #### E TH, ACET, SALYC, CMP #### [facility] [address] [place] [address] Dr. Zana Davenport pH (U) 6.0 [pH] Normal 5-[address] [facility] Comment on above: Performed By: #### E TH, ACET, SALYC, CMP #### [facility] [address] [place] [address] Dr. Zana Davenport SPEC GRAVITY 1.010 Normal 1.005-<=1.025 [facility] Comment on above: Performed By: #### E TH, ACET, SALYC, CMP #### [facility] [address] [place] [address] Dr. Zana Davenport UA PROTEIN Negative Normal NEGATIVE/ TRACE [facility] Comment on above: Performed By: #### E TH, ACET, SALYC, CMP #### [facility] [address] [place] [address] Dr. Zana Davenport UR MICRO IND NOT INDICATED Normal [facility] Comment on above: Performed By: #### E TH, ACET, SALYC, CMP #### [facility] [address] [place] [address] Dr. Zana Davenport Urobilinogen Qn (U) 0.2 {Joi'U}/dL Normal 0.2 - 1. [address] [facility] Comment on above: Performed By: #### E TH, ACET, SALYC, CMP #### [facility] [address] [place] [address] Dr. Zana Davenport ETHANOL (BLD ALC)on 11-14-19 ALC NOTE NOTE: 80 mg/dl is th e legal limit for a blood alcohol level Normal [facility] Comment on above: Performed By: #### E TH, ACET, SALYC, CMP #### [facility] [address] [place] [address] Dr. Zana Davenport Ethanol [Mass/Vol] mg/dL Normal [facility] Comment on above: Performed By: #### E TH, ACET, SALYC, CMP #### [facility] [address] [place] [address] Dr. Zana Davenport PROF 14(COMP METB)on 023 Albumin [Mass/Vol] 4.4 g/dL Normal 3.4-5.0 [facility] Comment on above: Performed By: #### E TH, ACET, SALYC, CMP #### [facility] [address] [place] [address] Dr. Zana Davenport Albumin/Globulin [Mass ratio] 1.3 {ratio} Normal [facility] Comment on above: Performed By: #### E , ACET, SALYC, CMP #### [facility] [address] [place] [address] Dr. Zana Davenport ALP [Catalytic activity/Vol] 105 U/L Normal 46-[address] [facility] Comment on above: Performed By: #### E , ACET, SALYC, CMP #### [facility] [address] [place] [address] Dr. Zana Davenport ALT [Catalytic activity/Vol] 40 U/L Normal 16-[address] [facility] Comment on above: Performed By: #### E , ACET, SALYC, CMP #### [facility] [address] [place] [address] Dr. Zana Davenport Anion gap [Moles/Vol] 15.7 mmol/L Normal [facility] Comment on above: Performed By: #### E TH, ACET, SALYC, CMP #### [facility] [address] [place] [address] Dr. Zana Davenport AST [Catalytic activity/Vol] 12 U/L Critically low 15-[address] [facility] Comment on above: Performed By: #### E , ACET, SALYC, CMP #### [facility] [address] [place] [address] Dr. Zana Davenport Bilirubin [Mass/Vol] 0.5 mg/dL Normal 0.2-1.[address] [facility] Comment on above: Performed By: #### E TH, ACET, SALYC, CMP #### [facility] [address] [place] [address] Dr. Zana Davenport Calcium [Mass/Vol] 9.4 mg/dL Normal 8.5-10.1 [facility] Comment on above: Performed By: #### E TH, ACET, SALYC, CMP #### [facility] [address] [place] [address] Dr. Zana Davenport Chloride [Moles/Vol] 102 mmol/L Normal 98-107 [facility] Comment on above: Performed By: #### E TH, ACET, SALYC, CMP #### [facility] [address] [place] [address] Dr. Zana Davenport CO2 [Moles/Vol] 26.0 mmol/L Normal 21.0-32.0 [facility] Comment on above: Performed By: #### E TH, ACET, SALYC, CMP #### [facility] [address] [place] [address] Dr. Zana Davenport Creatinine [Mass/Vol] 0.70 mg/dL Normal 0.70-1.30 [facility] Comment on above: Performed By: #### E , ACET, SALYC, CMP #### [facility] [address] [place] [address] Dr. Zana Davenport EGFR-AF CHINESE >60 Normal >=60 [facility] Comment on above: Performed By: #### E , ACET, SALYC, CMP #### [facility] [address] [place] [address] Dr. Zana Davenport EGFR-NON AF CHINESE >60 Normal >=60 [facility] Comment on above: Performed By: #### E TH, ACET, SALYC, CMP #### [facility] [address] [place] [address] Dr. Zana Davenport Globulin (S) [Mass/Vol] 3.3 g/dL Normal [facility] Comment on above: Performed By: #### E TH, ACET, SALYC, CMP #### [facility] [address] [place] [address] Dr. Zana Davenport Glucose [Mass/Vol] 106 mg/dL Normal 74-106 [facility] Comment on above: Performed By: #### E TH, ACET, SALYC, CMP #### [facility] [address] [address] [address] Zana Davenport Potassium [Moles/Vol] 3.7 mmol/L Normal 3.5-5.1 [facility] Comment on above: Performed By: #### E TH, ACET, SALYC, CMP #### [facility] [address] [address] [address] Zana Davenport Protein [Mass/Vol] 7.7 g/dL Normal 6.4-8.2 [facility] Comment on above: Performed By: #### E TH, ACET, SALYC, CMP #### [facility] [address] [place] [address] Dr. Zana Davenport Sodium [Moles/Vol] 140 mmol/L Normal 136-145 [facility] Comment on above: Performed By: #### E TH, ACET, SALYC, CMP #### [facility] [address] [place] [address] Dr. Zana Davenport Urea nitrogen [Mass/Vol] 10.0 mg/dL Normal 7.0-18.[address] [facility] Comment on above: Performed By: #### E TH, ACET, SALYC, CMP #### [facility] [address] [place] [address] Dr. Zana Davenport Urea nitrogen/Creatinine [Mass ratio] 14.3 mg/mg Normal [facility] Comment on above: Performed By: #### E TH, ACET, SALYC, CMP #### [facility] [address] [place] [address] Dr. Zana Davenport SALICYLATEon 11-13-2022 SALICYLATE <2.8 Normal <=19.9 [facility] Comment on above: Performed By: #### E TH, ACET, SALYC, CMP #### [facility] [address] [place] [address] Dr. Zana Davenport CTA CHEST WO W [...] SHAE BOYLE Date: 2022-11-06 23:17 Normal [facility] CBC AUTO DIFFon 11-06-2022 BASO # 0.0 103/ul Normal 0.0-0.[address] [facility] Comment on above: Performed By: #### C BC #### [facility] [address] [place] [address] Dr. Zana Davenport Basophils/100 WBC (Bld) 0.3 % Normal 0.2-2.[address] [facility] Comment on above: Performed By: #### C BC #### [facility] [address] [place] [address] Dr. Zana Davenport EO # 0.1 103/ul Normal 0.0-0.[address] [facility] Comment on above: Performed By: #### C BC #### [facility] [address] [place] [address] Dr. Zana Davenport Eosinophils/100 WBC (Bld) 1.0 % Normal 0.9-7.[address] [facility] Comment on above: Performed By: #### C BC #### [facility] [address] [place] [address] Dr. Zana Davenport Erythrocyte distribution width (RBC) [Ratio] 12.5 % Normal 11.0-15.[address] [facility] Comment on above: Performed By: #### C BC #### [facility] [address] [place] [address] Dr. Zana Davenport Hematocrit (Bld) [Volume fraction] 39.5 % Critically low 42.0-54.[address] [facility] Comment on above: Performed By: #### C BC #### [facility] [address] [place] [address] Dr. Zana Davenport Hemoglobin (Bld) [Mass/Vol] 14.2 g/dL Normal 14.0-18.[address] [facility] Comment on above: Performed By: #### C BC #### [facility] [address] [place] [address] Dr. Zana Davenport IG # 0.01 10e3/ul Normal 0.00-0.[address] [facility] Comment on above: Performed By: #### C BC #### [facility] [address] [place] [address] Dr. Zana Davenport IG % 0.2 % Normal 0.0-0.[address] [facility] Comment on above: Performed By: #### C BC #### [facility] [address] [place] [address] Dr. Zana Davenport LYMPH # 0.7 103/ul Critically low 1.2-3.8 [facility] Comment on above: Performed By: #### C BC #### [facility] [address] [place] [address] Dr. Zana Davenport Lymphocytes/100 WBC (Bld) 11.9 % Critically low 20.5-60.[address] [facility] Comment on above: Performed By: #### C BC #### [facility] [address] [place] [address] Dr. Zana Davenport MANUAL DIFF REQ NO Normal [facility] Comment on above: Performed By: #### C BC #### [facility] [address] [place] [address] Dr. Zana Davenport MCH (RBC) [Entitic mass] 31.0 pg Normal 25.9-34.[address] [facility] Comment on above: Performed By: #### C BC #### [facility] [address] [address] [address] Zana Davenport MCHC (RBC) [Mass/Vol] 35.9 g/dL Critically high 29.9-35.[address] [facility] Comment on above: Performed By: #### C BC #### [facility] [address] [address] [address] Zana Davenport MCV (RBC) [Entitic vol] 86.2 fL Normal 80.0-94.[address] [facility] Comment on above: Performed By: #### C BC #### [facility] [address] [address] [address] Zana Davenport MONO # 0.4 103/ul Normal 0.3-0.[address] [facility] Comment on above: Performed By: #### C BC #### [facility] [address] [address] [address] Zana Davenport Monocytes/100 WBC (Bld) 7.0 % Normal 1.7-12.[address] [facility] Comment on above: Performed By: #### C BC #### [facility] [address] [address] [address] Zana Davenport NEUT # 4.8 103/ul Normal 1.4-6.[address] [facility] Comment on above: Performed By: #### C BC #### [facility] [address] [address] [address] Zana Davenport Neutrophils/100 WBC (Bld) 79.6 % Critically high 43.0-75.[address] [facility] Comment on above: Performed By: #### C BC #### [facility] [address] [address] [address] Zana Davenport Platelet mean volume (Bld) [Entitic vol] 9.4 fL Critically low 9.5-13.[address] [facility] Comment on above: Performed By: #### C BC #### [facility] [address] [address] [address] Zana Davenport PLT 188 103/ul Normal 150-450 [facility] Comment on above: Performed By: #### C BC #### [facility] [address] [address] [address] Zana Davenport RBC 4.58 106/ul Critically low 4.70-6.10 [facility] Comment on above: Performed By: #### C BC #### [facility] [address] [address] [address] Zana Davenport WBC 6.0 103/ul Normal 4.0-11.[address] [facility] Comment on above: Performed By: #### C BC #### [facility] [address] [address] [address] Zana Davenport D-DIMERon 11-06-2022 D-DIMER 1.21 mg/L FEU Critically high <=0.59 [facility] Comment on above: Performed By: #### E TH, ACET, SALYC, CMP #### [facility] [address] [place] [address] Dr. Zana Davenport D-DIMER COMMENTS SEE BELOW Normal [facility] Comment on above: Result Comment: Incr [...] #### E TH, ACET, SALYC, CMP #### [facility] [address] [place], [place] [id number] Dr. Zana Davenport LACTATE/LACTIC ACIDon 2022 Lactate [Moles/Vol] 1.0 mmol/L Normal 0.4-2.0 [facility] Comment on above: Performed By: #### L ACT #### [facility] [address] [address] [address] Zana Davenport PROF 14(COMP METB)on 023 Albumin [Mass/Vol] 3.9 g/dL Normal 3.4-5.0 [facility] Comment on above: Performed By: #### E TH, ACET, SALYC, CMP #### [facility] [address] [place] [address] Dr. Zana Davenport Albumin/Globulin [Mass ratio] 1.2 {ratio} Normal [facility] Comment on above: Performed By: #### E TH, ACET, SALYC, CMP #### [facility] [address] [place] [address] Dr. Zana Davenport ALP [Catalytic activity/Vol] 89 U/L Normal 46-[address] [facility] Comment on above: Performed By: #### E , ACET, SALYC, CMP #### [facility] [address] [place] [address] Dr. Zana Davenport ALT [Catalytic activity/Vol] 39 U/L Normal 16-[address] [facility] Comment on above: Performed By: #### E , ACET, SALYC, CMP #### [facility] [address] [place] [address] Dr. Zana Davenport Anion gap [Moles/Vol] 12.0 mmol/L Normal [facility] Comment on above: Performed By: #### E , ACET, SALYC, CMP #### [facility] [address] [place] [address] Dr. Zana Davenport AST [Catalytic activity/Vol] 18 U/L Normal 15-[address] [facility] Comment on above: Performed By: #### E , ACET, SALYC, CMP #### [facility] [address] [place] [address] Dr. Zana Davenport Bilirubin [Mass/Vol] 0.7 mg/dL Normal 0.2-1.[address] [facility] Comment on above: Performed By: #### E , ACET, SALYC, CMP #### [facility] [address] [place] [address] Dr. Zana Davenport Calcium [Mass/Vol] 8.6 mg/dL Normal 8.5-10.1 [facility] Comment on above: Performed By: #### E , ACET, SALYC, CMP #### [facility] [address] [address] [address] Zana Davenport Chloride [Moles/Vol] 103 mmol/L Normal 98-107 [facility] Comment on above: Performed By: #### E TH, ACET, SALYC, CMP #### [facility] [address] [address] [address] Zana Davenport CO2 [Moles/Vol] 26.3 mmol/L Normal 21.0-32.0 [facility] Comment on above: Performed By: #### E TH, ACET, SALYC, CMP #### [facility] [address] [address] [address] Zana Davenport Creatinine [Mass/Vol] 0.77 mg/dL Normal 0.70-1.30 [facility] Comment on above: Performed By: #### E TH, ACET, SALYC, CMP #### [facility] [address] [address] [address] Zana Davenport EGFR-AF CHINESE >60 Normal >=60 [facility] Comment on above: Performed By: #### E TH, ACET, SALYC, CMP #### [facility] [address] [address] [address] Zana Davenport EGFR-NON AF CHINESE >60 Normal >=[address] [facility] Comment on above: Performed By: #### E TH, ACET, SALYC, CMP #### [facility] [address] [address] [address] Zana Davenport Globulin (S) [Mass/Vol] 3.2 g/dL Normal [facility] Comment on above: Performed By: #### E TH, ACET, SALYC, CMP #### [facility] [address] [address] [address] Zana Davenport Glucose [Mass/Vol] 96 mg/dL Normal 74-106 [facility] Comment on above: Performed By: #### E TH, ACET, SALYC, CMP #### [facility] [address] [address] [address] Zana Davenport Potassium [Moles/Vol] 3.3 mmol/L Critically low 3.5-5.1 [facility] Comment on above: Performed By: #### E TH, ACET, SALYC, CMP #### [facility] [address] [place] [address] Dr. Zana Davenport Protein [Mass/Vol] 7.1 g/dL Normal 6.4-8.2 [facility] Comment on above: Performed By: #### E TH, ACET, SALYC, CMP #### [facility] [address] [place] [address] Dr. Zana Davenport Sodium [Moles/Vol] 138 mmol/L Normal 136-145 [facility] Comment on above: Performed By: #### E TH, ACET, SALYC, CMP #### [facility] [address] [place] [address] Dr. Zana Davenport Urea nitrogen [Mass/Vol] 12.0 mg/dL Normal 7.0-18.[address] [facility] Comment on above: Performed By: #### E TH, ACET, SALYC, CMP #### [facility] [address] [place] [address] Dr. Zana Davenport Urea nitrogen/Creatinine [Mass ratio] 15.6 mg/mg Normal [facility] Comment on above: Performed By: #### E TH, ACET, SALYC, CMP #### [facility] [address] [place] [address] Dr. Zana Davenport TROPONIN, HIGH SENSITIVITYon 11-06-2022 HSTROP 18.7 pg/mL Normal 4.0-76.1 [facility] Comment on above: Result Comment: CUT- OFF POINTS HAVE BEEN ESTABLISHED BASED ON THE FOURTH UNIVERSAL DEFINITIONS OF MYOCARDIAL INFARCTION. THE UPPER REFERENCE LIMIT (URL) OF TROPONIN, DEFINED THE 99TH PERCENTILE OF cTnI DISTRIBUTION IN A REFERENCE POPULATION, HAS BEEN CONFIRMED THE DECISION THRESHOLD FOR DC DIAGNOSIS. Performed By: #### E TH, ACET, SALYC, CMP #### [facility] [address] [place] [address] Dr. Zana Davenport TSHon 11-06-2022 TSH 1.315 uIU/mL Normal 0.358-3.[address] [facility] Comment on above: Performed By: #### E TH, ACET, SALYC, CMP #### [facility] [address] [place] [address] Dr. Zana Davenport XR CHEST 2 Von [...] NAWAF GREENBERG Date: 2022-11-06 21:24 Normal [facility] ACETAMINOPHENon 10-05-2022 Acetaminophen [Mass/Vol] ug/mL Critically low 10.0-30.[address] [facility] Comment on above: Performed By: #### E TH, LANI LEONARDO, CMP #### [facility] [address] [place] [address] Dr. Zana Davenport CBC AUTO DIFFon 10-05-2022 BASO # 0.0 103/ul Normal 0.0-0.[address] [facility] Comment on above: Performed By: #### C BC #### [facility] [address] [place] [address] Dr. Zana Davenport Basophils/100 WBC (Bld) 0.3 % Normal 0.2-2.[address] [facility] Comment on above: Performed By: #### C BC #### [facility] [address] [place] [address] Dr. Zana Davenport EO # 0.1 103/ul Normal 0.0-0.[address] [facility] Comment on above: Performed By: #### C BC #### [facility] [address] [place] [address] Dr. Zana Davenport Eosinophils/100 WBC (Bld) 1.8 % Normal 0.9-7.0 [facility] Comment on above: Performed By: #### C BC #### [facility] [address] [place] [address] Dr. Zana Davenport Erythrocyte distribution width (RBC) [Ratio] 12.2 % Normal 11.0-15.0 [facility] Comment on above: Performed By: #### C BC #### [facility] [address] [place] [address] Dr. Zana Davenport Hematocrit (Bld) [Volume fraction] 45.8 % Normal 42.0-54.[address] [facility] Comment on above: Performed By: #### C BC #### [facility] [address] [place] [address] Dr. Zana Davenport Hemoglobin (Bld) [Mass/Vol] 16.4 g/dL Normal 14.0-18.[address] [facility] Comment on above: Performed By: #### C BC #### [facility] [address] [place] [address] Dr. Zana Davenport IG # 0.03 10e3/ul Normal 0.00-0.[address] [facility] Comment on above: Performed By: #### C BC #### [facility] [address] [place] [address] Dr. Zana Davenport IG % 0.4 % Normal 0.0-0.[address] [facility] Comment on above: Performed By: #### C BC #### [facility] [address] [place] [address] Dr. Zana Davenport LYMPH # 1.5 103/ul Normal 1.2-3.[address] [facility] Comment on above: Performed By: #### C BC #### [facility] [address] [place] [address] Dr. Zana Davenport Lymphocytes/100 WBC (Bld) 19.9 % Critically low 20.5-60.[address] [facility] Comment on above: Performed By: #### C BC #### [facility] [address] [place] [address] Dr. Zana Davenport MANUAL DIFF REQ NO Normal [facility] Comment on above: Performed By: #### C BC #### [facility] [address] [place] [address] Dr. Zana Davenport MCH (RBC) [Entitic mass] 30.9 pg Normal 25.9-34.[address] [facility] Comment on above: Performed By: #### C BC #### [facility] [address] [address] [address] Zana Davenport MCHC (RBC) [Mass/Vol] 35.8 g/dL Critically high 29.9-35.[address] [facility] Comment on above: Performed By: #### C BC #### [facility] [address] [place] [address] Dr. Zana Davenport MCV (RBC) [Entitic vol] 86.3 fL Normal 80.0-94.[address] [facility] Comment on above: Performed By: #### C BC #### [facility] [address] [place] [address] Dr. Zana Davenport MONO # 0.5 103/ul Normal 0.3-0.[address] [facility] Comment on above: Performed By: #### C BC #### [facility] [address] [place] [address] Dr. Zana Davenport Monocytes/100 WBC (Bld) 6.1 % Normal 1.7-12.[address] [facility] Comment on above: Performed By: #### C BC #### [facility] [address] [place] [address] Dr. Zana Davenport NEUT # 5.4 103/ul Normal 1.4-6.[address] [facility] Comment on above: Performed By: #### C BC #### [facility] [address] [place] [address] Dr. Zana Davenport Neutrophils/100 WBC (Bld) 71.5 % Normal 43.0-75.0 [facility] Comment on above: Performed By: #### C BC #### [facility] [address] [place] [address] Dr. Zana Davenport Platelet mean volume (Bld) [Entitic vol] 9.6 fL Normal 9.5-13.5 [facility] Comment on above: Performed By: #### C BC #### [facility] [address] [place] [address] Dr. Zana Davenport PLT 238 103/ul Normal 150-450 [facility] Comment on above: Performed By: #### C BC #### [facility] [address] [place] [address] Dr. Zana Davenport RBC 5.31 106/ul Normal 4.70-6.10 [facility] Comment on above: Performed By: #### C BC #### [facility] [address] [place] [address] Dr. Zana Davenport WBC 7.6 103/ul Normal 4.0-11.[address] [facility] Comment on above: Performed By: #### C BC #### [facility] [address] [place] [address] Dr. Zana Davenport ER URINE PROFILEon 3 Bilirubin Ql (U) Negative Normal NEGATIVE [facility] Comment on above: Performed By: #### E TH, ACET, SALYC, CMP #### [facility] [address] [place] [address] Dr. Zana Davenport Clarity (U) CLEAR Normal CLEAR [facility] Comment on above: Performed By: #### E , ACET, SALYC, CMP #### [facility] [address] [place] [address] Dr. Zana Davenport Color (U) LT. YELLOW Normal YELLOW [facility] Comment on above: Performed By: #### E , ACET, SALYC, CMP #### [facility] [address] [place] [address] Dr. Zana BARNEY A micrscopic examination will be performed if indicated. Normal [facility] Comment on above: Performed By: #### E TH, ACET, SALYC, CMP #### [facility] [address] [place] [address] Dr. Zana Davenport Glucose Ql (U) Negative Normal NEGATIVE [facility] Comment on above: Performed By: #### E TH, ACET, SALYC, CMP #### [facility] [address] [place] [address] Dr. Zana Davenport Hemoglobin Ql (U) Negative Normal NEGATIVE [facility] Comment on above: Performed By: #### E TH, ACET, SALYC, CMP #### [facility] [address] [place] [address] Dr. Zana Davenport Ketones Ql (U) Negative Normal NEGATIVE [facility] Comment on above: Performed By: #### E TH, ACET, SALYC, CMP #### [facility] [address] [place] [address] Dr. Zana Davenport LEUKOCYTES Negative Normal NEGATIVE [facility] Comment on above: Performed By: #### E TH, ACET, SALYC, CMP #### [facility] [address] [address] [address] Zana Davenport Nitrite Ql (U) Negative Normal NEGATIVE [facility] Comment on above: Performed By: #### E TH, ACET, SALYC, CMP #### [facility] [address] [place] [address] Dr. Zana Davenport pH (U) 7.5 [pH] Normal 5-[address] [facility] Comment on above: Performed By: #### E TH, ACET, SALYC, CMP #### [facility] [address] [place] [address] Dr. Zana Davenport SPEC GRAVITY 1.010 Normal 1.005-<=1.025 [facility] Comment on above: Performed By: #### E TH, ACET, SALYC, CMP #### [facility] [address] [place] [address] Dr. Zana Davenport UA PROTEIN Negative Normal NEGATIVE/ TRACE [facility] Comment on above: Performed By: #### E TH, ACET, SALYC, CMP #### [facility] [address] [place] [address] Dr. Zana Davenport UR MICRO IND NOT INDICATED Normal [facility] Comment on above: Performed By: #### E TH, ACET, SALYC, CMP #### [facility] [address] [place] [address] Dr. Zana Davenport Urobilinogen Qn (U) 0.2 {Joi'U}/dL Normal 0.2 - 1. [address] [facility] Comment on above: Performed By: #### E TH, ACET, SALYC, CMP #### [facility] [address] [place] [address] Dr. Zana Davenport ETHANOL (BLD ALC)on 10-05-19 23 ALC NOTE NOTE: 80 mg/dl is th e legal limit for a blood alcohol level Normal [facility] Comment on above: Performed By: #### E TH, ACET, SALYC, CMP #### [facility] [address] [address] [address] Zana Davenport Ethanol [Mass/Vol] mg/dL Normal [facility] Comment on above: Performed By: #### E TH, ACET, SALYC, CMP #### [facility] [address] [address] [address] Zana Davenport PROF 14(COMP METB)on 023 Albumin [Mass/Vol] 4.8 g/dL Normal 3.4-5.0 [facility] Comment on above: Performed By: #### E TH, ACET, SALYC, CMP #### [facility] [address] [place] [address] Dr. Zana Davenport Albumin/Globulin [Mass ratio] 1.5 {ratio} Normal [facility] Comment on above: Performed By: #### E TH, ACET, SALYC, CMP #### [facility] [address] [address] [address] Zana Davenport ALP [Catalytic activity/Vol] 133 U/L Critically high 46-[address] [facility] Comment on above: Performed By: #### E TH, ACET, SALYC, CMP #### [facility] [address] [address] [address] Zana Davenport ALT [Catalytic activity/Vol] 43 U/L Normal 16-[address] [facility] Comment on above: Performed By: #### E TH, ACET, SALYC, CMP #### [facility] [address] [address] [address] Zana Davenport Anion gap [Moles/Vol] 14.2 mmol/L Normal [facility] Comment on above: Performed By: #### E TH, ACET, SALYC, CMP #### [facility] [address] [address] [address] Zana Davenport AST [Catalytic activity/Vol] 18 U/L Normal 15-[address] [facility] Comment on above: Performed By: #### E TH, ACET, SALYC, CMP #### [facility] [address] [place] [address] Dr. Zana Davenport Bilirubin [Mass/Vol] 0.4 mg/dL Normal 0.2-1.[address] [facility] Comment on above: Performed By: #### E TH, ACET, SALYC, CMP #### [facility] [address] [place] [address] Dr. Zana Davenport Calcium [Mass/Vol] 9.6 mg/dL Normal 8.5-10.1 [facility] Comment on above: Performed By: #### E , ACET, SALYC, CMP #### [facility] [address] [place] [address] Dr. Zana Davenport Chloride [Moles/Vol] 101 mmol/L Normal 98-107 [facility] Comment on above: Performed By: #### E , ACET, SALYC, CMP #### [facility] [address] [place] [address] Dr. Zana Davenport CO2 [Moles/Vol] 26.6 mmol/L Normal 21.0-32.0 [facility] Comment on above: Performed By: #### E , ACET, SALYC, CMP #### [facility] [address] [place] [address] Dr. Zana Davenport Creatinine [Mass/Vol] 0.84 mg/dL Normal 0.70-1.30 [facility] Comment on above: Performed By: #### E TH, ACET, SALYC, CMP #### [facility] [address] [place] [address] Dr. Zana Davenport EGFR-AF CHINESE >60 Normal >=60 [facility] Comment on above: Performed By: #### E TH, ACET, SALYC, CMP #### [facility] [address] [place] [address] Dr. Zana Davenport EGFR-NON AF CHINESE >60 Normal >=60 [facility] Comment on above: Performed By: #### E TH, ACET, SALYC, CMP #### [facility] [address] [place] [address] Dr. Zana Davenport Globulin (S) [Mass/Vol] 3.3 g/dL Normal [facility] Comment on above: Performed By: #### E TH, ACET, SALYC, CMP #### [facility] [address] [place] [address] Dr. Zana Davenport Glucose [Mass/Vol] 109 mg/dL Critically high 74-106 T [facility] Comment on above: Performed By: #### E TH, ACET, SALYC, CMP #### [facility] [address] [place] [address] Dr. Zana Davenport Potassium [Moles/Vol] 3.8 mmol/L Normal 3.5-5.[address] [facility] Comment on above: Performed By: #### E TH, ACET, SALYC, CMP #### [facility] [address] [place] [address] Dr. Zana Davenport Protein [Mass/Vol] 8.1 g/dL Normal 6.4-8.2 [facility] Comment on above: Performed By: #### E , ACET, SALYC, CMP #### [facility] [address] [place] [address] Dr. Zana Davenport Sodium [Moles/Vol] 138 mmol/L Normal 136-145 [facility] Comment on above: Performed By: #### E TH, ACET, SALYC, CMP #### [facility] [address] [place] [address] Dr. Zana Davenport Urea nitrogen [Mass/Vol] 12.0 mg/dL Normal 7.0-18.[address] [facility] Comment on above: Performed By: #### E TH, ACET, SALYC, CMP #### [facility] [address] [place] [address] Dr. Zana Davenport Urea nitrogen/Creatinine [Mass ratio] 14.3 mg/mg Normal [facility] Comment on above: Performed By: #### E TH, ACET, SALYC, CMP #### [facility] [address] [place] [address] Dr. Zana Davenport SALICYLATEon 10-05-2022 SALICYLATE 3.1 mg/dL Normal <=19.[address] [facility] Comment on above: Performed By: #### E JORDEN POWERS SALYC, CMP #### [facility] [address] [address] [address] Zana Davenport XR TIB_FIB RT 2Von 3 XR TIB_FIB RT 2V IMAGES REVIEWED: XR TIB_FIB RT 2V COMPARISON: None available. CLINICAL INDICATION: Pain FINDINGS/IMPRESSION: 1. Mild soft tissue swelling in the anterior upper leg. 2. No evidence of acute osseous abnormality of the right tibia/fibula. Electronically authenticated by: MARKUS DIEGO Date: 2022-10-05 17:[address] [facility] Vital Signs Date Time Vital Sign Value Performing Clinician Facility 05-05-2024 08:27-0400 Body height 165.1 cm Bharti Barnett VICE PRESIDENT OF BRAND MANAGEMENT Work Phone: [facility] 05-05-2024 08:27-0400 Body mass index (BMI) [Ratio] 28.46 kg/m2 Bharti Barnett VICE PRESIDENT OF BRAND MANAGEMENT Work Phone: [facility] 05-05-2024 08:27-0400 Body temperature 96.6 [degF] Bharti Barnett VICE PRESIDENT OF BRAND MANAGEMENT Work Phone: [facility] 05-05-2024 08:27-0400 Body weight 77.56 kg Bharti Barnett VICE PRESIDENT OF BRAND MANAGEMENT Work Phone: [facility] 05-05-2024 08:27-0400 Diastolic blood pressure 94 mm[Hg] Bharti Barnett VICE PRESIDENT OF BRAND MANAGEMENT Work Phone: [facility] Comment on above: RT ARM 120/90 LG [facility]FF 05-05-2024 08:27-0400 Heart rate 76 /min Bahrti Barnett VICE PRESIDENT OF BRAND MANAGEMENT Work Phone: [facility] Comment on above: 98$ O2 05-05-2024 08:27-0400 Systolic blood pressure 124 mm[Hg] Bharti Barnett VICE PRESIDENT OF BRAND MANAGEMENT Work Phone: [facility] Comment on above: RT ARM 120/90 LG CUFF 11-17-2022 07:30-0400 Body temperature 97.5 [degF] PHYSICIAN NO [facility] 11-17-2022 07:30-0400 Diastolic blood pressure 68 mm[Hg] PHYSICIAN NO [facility] 11-17-2022 07:30-0400 Heart rate 67 /min PHYSICIAN NO [facility] 11-17-2022 07:30-0400 Respiratory rate 18 /min PHYSICIAN NO [facility] 11-17-2022 07:30-0400 SaO2% (BldA) [Mass fraction] 100 % PHYSICIAN NO [facility] 11-17-2022 07:30-0400 Systolic blood pressure 115 mm[Hg] PHYSICIAN NO [facility] 11-14-2022 14:34-0400 Body height 165.1 cm PHYSICIAN NO [facility] 11-13-2022 18:01-0400 Body weight 70.53 kg PHYSICIAN NO [facility] Encounters Encounter Date Encounter Type Care Provider Facility Start: 05-05-2024 End: 05-05-2024 Bamboo flowsheet Bharti Vigilk VICE PRESIDENT OF BRAND MANAGEMENT Work Phone: [facility] Start: 05-05-2024 End: 05-05-2024 Bamboo flowsheet Bharti Harrisontrick VICE PRESIDENT OF BRAND MANAGEMENT Work Phone: [facility] Start: 05-05-2024 End: 05-05-2024 Office outpatient visit 10 minutes Bharti Vigilk VICE PRESIDENT OF [employer]AND MANAGEMENT Work Phone: [facility] Comment on above: Bilateral impacted c erumen (Primary Dx); Tension headache; Muscle pain, cervical; Non-recurrent acute suppurative otitis media of both ears without spontaneous rupture of tympanic membranes Start: 05-05-2024 End: 05-05-2024 ambulatory BHARTI HARRISONTRICK Not Available Start: 02-04-2024 End: 02-04-2024 ambulatory SHAIKH TAN Not Available Start: 08-27-2023 ambulatory Evens Calderon acility:[facility] Start: 11-13-2022 End: 11-17-2022 Evaluation and management of inpatient Evens Brambila Facility:[facility] Start: 11-13-2022 End: 11-17-2022 Evaluation and management of inpatient PHYSICIAN RAD [facility] Work Phone: Start: 11-13-2022 End: 11-13-[address] LULÚ NICOLE Facility:[facility] Start: 11-06-2022 End: 11-07-2022 ambulatory KEVIN MARTINEZ Facility:[facility] Start: 10-05-2022 End: 10-05-[address] OFELIA MERCHANT . Facility:[facility] Start: 01-11-2022 ambulatory JULIO WERNER Facility:[facility] Plan of Treatment Date Care Activity Detail Author Start: 05-05-2024 End: 05-05-2024 Patient encounter procedure 05/05/2024 8:30 AM EDT Office Visit [facility] [address] [place] [address] Bharti Barnett, DOMO [address] [place] [address] Arrived [facility] Comment on above: Arrived Start: 04-19-2024 Influenza vaccination Influenza Vacc ine (#1) [facility] Start: 11-17-2022 [facility] Start: 11-13-2022 Hospital admission [facility] Patient Education Depression, Ad ult (DC) [facility] DC Instructions [facility] Work Phone: Patient referral [facility] Work Phone: Payers Date Payer Category Payer Unknown [employer] [facility] [employer] [id number] 2023-Present [address] [address] [place] [address] [id number] 2023 Unknown [id number] 2022 Self-pay 1998 Unknown [id number] 1998 Unknown [id number] 1998 Unknown [id number] 1998 Unknown [id number] 1998 Unknown [id number] 1998 Unknown [id number] 1959 Self-pay [id number] 1959 Unknown [id number] Unknown 100 [employer] [facility] [employer] [id number] Unknown [id number] Unknown [id number] Social History Date Type Detail Facility Start: 11-14-2022 [facility] Start: 2000 Sex Assigned At Male F [facility] Tobacco smoking stat [facility] Tobacco smoking consumption unknown [facility] Start: 02-04-2024 End: 05-05-2024 History [...] 11-13-2022 Functional status Patient Not at Baseline [facility] Work Phone: Mental Status Date Assessment Result Facility 11-13-2022 Cognitive function Cognitive Sta tus Patient Not at Baseline [facility] Work Phone: History of Present illness [...] 875-125 MG tablet documented in this encounter [facility] Instructions 05-05-2024 Patient Instructions Note Date & [...] improve, call office. documented in this encounter [facility] Discharge summary 11-17-2022 Note Date & Type Note Facility 11-17-2022 Discharge summary Note Date/Time November 17, 2022 10:20am [facility] [address] [place] [address] Discharge Summary Signed Patient: Petros Regalado MR#: [id number] 2545 : 2000 Acct:[id number] Age/Sex: 22 / M Adm Date: 3 Loc: 1S Room: [address] [place] [address]: Blanca Brambila MD Copies to: [...] last night.? [facility] [...] No Activity Restrictions Instructions: Depression, Adult (DC), [facility] DC Instructions Stand Alone Forms: [...] [Other] (please contact for any medical needs) [facility] [Outside] ( grant manager: (Insert date/time here) Therapy:? (insert date/time here) Intake: (Insert date/time here) Please bring a copy of your photo ID, insurance card, and proof of household income.? Psychiatry: (Insert date/time here) Group: (Insert date/time here ) ) [facility] Hotline [Outside] Documented By: Evens Brambila MD [id number] Signed By: <Electronically signed by Evens Brambila MD> 11/17/22 1021 [facility] Work Phone: Progress note 11-16-2022 Note Date & Type Note Facility 11-16-2022 Progress note Note Date/Time November 16, 2022 8:51am [facility] [address] [place], [place] [id number] Psychiatry Progress Note Signed Patient: Petros Regalado MR#: [id number] 2545 : 2000 Acct:[id number] Age/Sex: 22 / M Adm Date: 3 Loc: 1S Room: [address] [place] [address] Type : ADM IN Attending Dr: Blanca [...] signed by Evens Brambila MD> 11/16/22 0851 [facility] Work Phone: Progress note 11-16-2022 Note Date & Type Note Facility 11-16-2022 Progress note Note Date/Time November 16, 2022 8:50am [facility] [address] [place] [address] Psychiatry Progress Note Signed Patient: Petros Regalado MR#: [id number] 2545 : 2000 Acct:[id number] Age/Sex: 22 / M Adm Date: 3 Loc: Room: [address] [place] [address] Type : ADM IN Attending Dr: Blanca [...] signed by Evens Brambila MD> 11/16/22 0850 [facility] Work Phone: History and physical note 11-15-2022 Note Date & Type Note Facility 11-15-2022 History and physi jolie note Note Date/Time November 14, 2022 12:32pm [facility] [address] [place] [address] Psychiatry H&P Signed Patient: Petros Regalado MR#: [id number] 2545 : 2000 Acct:[id number] Age/Sex: 22 / M Adm Date: 3 Loc: Room: [address] [place] [address] Type: ADM IN Attending Dr: Blanca Brambila [...] grandma and her boyfriend Employment: Works in [employer] Relationships: Reports his support system is his [...] and oriented x3. Gait normal CNII: visual russo intact, PERRL CNIII, IV, : EOMI intact, [...] 11/13/22 @ 17:52 by Татьяна Rubio RN) Holt teeth removed Social History Smoking Status: Light [...] signed by Evens Brambila MD> 11/15/22 0900 [facility] Work Phone: Evaluation note Note Date & Type Note Facility Evaluation note Diagnosis Onset Date Depression acute Suicidal ideation acute [facility] Work Phone: Evaluation note Note Date & Type Note Facility Evaluation note Diagnosis Bilateral impacted cerumen- Primary Impacted cerumen Tension headache Muscle pain, cervical Non-recurrent acute suppurative otitis media of both ears without spontaneous rupture of tympanic membranes documented in this encounter [facility] Hospital Discharge instructions Note Date & Type Note Facility Hospital Discharge instructions Additional Instructions Regular Diet No Activity Restrictions [facility] Work Phone: Chief Complaint and Reason [...] MD Admit Provider, Attending Pr ovider Active Data Operations Leader Relationship Specialty Start Date End Date Tevin Donald MD [address] [place] [phone] PCP - General Family Medicine 04/21/24 Bharti Barnett NP [address] [place] [phone] Nurse Practitioner Family Medicine 04/21/24 Data Operations Leader Relationship Specialty Start Date End Date Tevin Donald MD [address] [place] [phone] PCP - General Family Medicine 04/21/24 Bharti Barnett NP [address] [place] [address] Nurse Practitioner Family Medicine 04/21/24 (unrecognized sect ion and content) No Status Records FoundNo Status Records FoundNo Status Records Found INFORMATION SOURCE (unrecogn ized section and content) DATE CREATED AUTHOR 12/31/2022 [facility] DATE CREATED AUTHOR AUTHOR'S ORGANIZ ATION 11/10/2023 [facility] DATE CREATED AUTHOR AUTHOR'S ORGANIZ ATION 05/06/2024 [facility] Reason for Visit (unrecogniz ed section [...] BE BASED ON THE PRIMARY CLINICAL RECORDS. [facility] [employer] provides no warranty or guarantee of the accuracy or completeness of information in this document.
[2025-01-20 09:36] LABS: Bilirubin Urine NEGATIVE (NEGATIVE); Blood Urine NEGATIVE (NEGATIVE); Clarity Urine CLEAR (CLEAR); Color Urine YELLOW (YELLOW); Glucose Urine UA NEGATIVE (NEGATIVE); Ketones Urine NEGATIVE (NEGATIVE); Leukocyte Esterase Urine NEGATIVE (NEGATIVE); Nitrite Urine NEGATIVE (NEGATIVE); Protein Urine NEGATIVE (NEG/TRACE)
[2025-01-20 09:46] LABS: Alanine Aminotransferase 26 U/L (16-63); Albumin Globulin Ratio 1.2; Albumin Level 4.2 g/dL (3.4-5.0); Alkaline Phosphatase 123 U/L (46-116); Anion Gap 16.5; Aspartate Amino Transferase 13 U/L (15-37); Bilirubin Direct 0.2 mg/dL (0.0-0.2); Bilirubin Total 1.1 mg/dL (0.2-1.0); Calcium 9.8 mg/dL (8.5-10.1); Carbon Dioxide 25.3 mmol/L (21.0-32.0); Chloride 101 mmol/L (98-107); Estimated GFR (African America >60 (>=60 mL/min/1.73m^2); Estimated GFR (Non-African Ame >60 (>=60 mL/min/1.73m^2); Globulin 3.5 g/dL; Glucose 149 mg/dL (74-106); Potassium 3.8 mmol/L (3.5-5.1); Sodium 139 mmol/L (136-145); Total Protein 7.7 g/dL (6.4-8.2)
[2025-01-20 09:49] LABS: Bacteria Urine TRACE #/HPF (NONE SEEN); Mucus Urine NONE SEEN (NONE SEEN); Squamous Epithelial Cell Urine MODERATE #/LPF (NONE/RARE); Transitional Epi Cells Urine FEW #/LPF (NONE SEEN)
[2025-01-20 09:50] LABS: Cast Seen? NONE SEEN #/LPF (NONE SEEN); Crystals Seen? None Seen #/HPF (None Seen); Urine Culture Indicated YES-FRMC
[2025-01-20 09:50] LABS: Acetaminophen <2.0 ug/mL (10.0-30.0); Ethanol <3 mg/dL; Salicylate <2.8 mg/dL (<=19.9)
[2025-01-20 09:56] LABS: Amphetamine Screen Urine NEGATIVE (NEGATIVE); Barbiturates Screen Urine NEGATIVE (NEGATIVE); Benzodiazepines Screen Urine NEGATIVE (NEGATIVE); Buprenorphine Screen Urine NEGATIVE (NEGATIVE); Cannabinoid Screen Urine NEGATIVE (NEGATIVE); Cocaine Screen Urine NEGATIVE (NEGATIVE); Methadone Screen Urine NEGATIVE (NEGATIVE); Methamphetamines Screen Urine NEGATIVE (NEGATIVE); Opiate Screen Urine NEGATIVE (NEGATIVE); Oxycodone Screen Urine NEGATIVE (NEGATIVE); Phencyclidine Screen Urine NEGATIVE (NEGATIVE); Tricyclic Antidepressant Urine NEGATIVE (NEGATIVE)
--- NOTE | 2025-01-20 11:21 | PC.NURSE ---
Kylah from Poison Control called back to check on pt. informed her of status, lab results and transfer initiated. Denies any other questions or concerns.
[2025-01-20] MEDS: 0.9 % SODIUM CHLORIDE 1,000 ML 200 ML IV (11:47)
== END 2025-01-20 11:56 | disposition short-term general hospital (02) ==
PROVIDERS: Emergency Provider Emergency Medicine; PCP Nurse Practitioner
DX: T42.8X1A Poisoning by antiparkinsonism drugs and other central muscle-tone depressants, accidental (unintentional), initial encounter (principal); R40.0 Somnolence; R82.998 Other abnormal findings in urine
CPT/HCPCS: 36415; 71045; 80048; 80076; 80179; 80307; 80320; 80329; 81001; 85025; 87086; 93005; 99285